=== PATIENT | male | born 1985 | race African-American/Black ===

== ENCOUNTER 2016-12-02 11:46 | Emergency (ER) | payer SELFPAY ==
[2016-12-02 13:00] VITALS: BP 127/65
--- NOTE | 2016-12-02 13:00 | ER Document Report ---
HPI - HPI Patient complains to provider of: Dysuria and penile discharge Onset: Other - 3 days Onset/Duration: Gradual Pain Level: 3 Context: 31-year-old male had unprotected intercourse with a female last Friday. By Friday he was having dysuria and now has a yellow penile discharge. No penile scrotal testicular swelling. No rash. Associated Symptoms: None Exacerbated by: Denies Relieved by: Denies - ROS ROS below otherwise negative: Yes Systems Reviewed and Negative: Yes All other systems reviewed and negative - REPRODUCTIVE Reproductive: DENIES: : - DERM Skin Color: Normal Past Medical History - General Information source: Patient - Social History Smoking Status: Unknown if Ever Smoked Frequency of alcohol use: None Drug Abuse: None Lives with: Family Family History: Reviewed & Not Pertinent Patient has suicidal ideation: No Patient has homicidal ideation: No Renal/ Medical History: Denies: Hx Peritoneal Dialysis Musculoskeltal Medical History: Reports Hx Musculoskeletal Deformity - corrective surgery 10 years ago Past Surgical History: Reports: Hx Orthopedic Surgery - right ankle with hardware - Immunizations Hx Diphtheria, Pertussis, Tetanus Vaccination: No Vertical Provider Document - CONSTITUTIONAL Agree With Documented VS: Yes Exam Limitations: No Limitations General Appearance: No Apparent Distress - INFECTION CONTROL TRAVEL OUTSIDE OF THE [place] IN LAST 30 DAYS: No - HEENT HEENT: Normal ENT Exam - NECK Neck: Supple - GI/ABDOMEN Gastrointestinal: Abdomen Soft, Abdomen Non-Tender - REPRODUCTIVE Notes: Genitalia exam was not done per patient request. He denies any swelling lesions. We discussed STDs to watch for any development of blisters or ulcers that are nonpainful. He understands that if those develop he needs to be seen for follow-up immediately. - NEURO Level of Consciousness: Awake, Alert, Appropriate - DERM Integumentary: Warm, Dry, No Rash Discharge - Discharge Clinical Impression: Urethritis Condition: Good Disposition: HOME, SELF-CARE Instructions: Urethritis ([facility]), Rocephin ([facility]), Azithromycin ([facility]), Gonorrhea ( [facility]), Chlamydia ([facility]) Additional Instructions: Call me in 3 hours for the STD culture result so the female can be treated if it is positive, [phone] Department for HIV testing if you are concerned about it Use condoms Do not have sex with this female again until she has been treated if the cultures are positive Please complete the patient satisfaction survey if you get one, and return it.. If you do not receive a survey, then you can go to the [facility] website, [email or web address] and place your comments about your very good care. Thank you very much. It was a pleasure being your medical provider today. Forms: Return to Work
[2016-12-02] MEDS ORDERED: AZITHROMYCIN 250 MG TABLET PO ONE (13:01)
[2016-12-02] MEDS ORDERED: CEFTRIAXONE INJ 250 MG VIAL IM ONE (13:01)
[2016-12-02] MEDS ORDERED: LIDOCAINE 1% INJ-PF (10 MG/ML) 30 ML SDV INFIL ONE (13:01)
[2016-12-02 13:15] LABS: APPEARANCE,URINE CLEAR; BILIRUBIN,URINE NEGATIVE (NEGATIVE); GLUCOSE, URINE NEGATIVE (NEGATIVE); KETONES,URINE NEGATIVE (NEGATIVE); LEUKOCYTE ESTERASE,URINE NEGATIVE (NEGATIVE); NITRITE,URINE NEGATIVE (NEGATIVE); PROTEIN,URINE NEGATIVE (NEGATIVE); URINE SPECIFIC GRAVITY 1.014; UROBILINOGEN,URINE NEGATIVE mg/dL (<2.0)
[2016-12-02 14:41] LABS: CHLAM PCR NOT DETECTED (NOT DETECT)
== END 2016-12-02 14:01 | disposition home or self-care (01) ==
LOC: ER 11:46
DX: N34.2 Other urethritis (principal); R30.0 Dysuria
CPT/HCPCS: 99283; 96372; 81001; 87491; 87591; J3490; J0696

== ENCOUNTER 2016-12-30 10:35 | Emergency (ER) | payer SELFPAY ==
--- NOTE | 2016-12-30 10:55 | ER Document Report ---
ED General - General Chief Complaint: Shoulder Injury Stated Complaint: SHOULDER INJURY Time Seen by Provider: 12/30/16 10:53 Mode of Arrival: Wheelchair Information source: Patient Notes: Patient is a 31 year old male who presents with right shoulder pain that occurred around 2 AM this morning after he was wrestling with some friends. He states he heard a "pop" and thought he dislocated his shoulder. He believes he reduced it but has had continued pain and limited mobility sine then. He did take some ibuprofen around 3:30 AM which did not provide relief. Denies any numbness, tingling to extremity. TRAVEL OUTSIDE OF THE [place] IN LAST 30 DAYS: No - Related Data Allergies/Adverse Reactions: No Known Allergies Allergy (Verified 12/02/16 11:51) Past Medical History - General Information source: Patient - Social History Smoking Status: Current Every Day Smoker Family History: Reviewed & Not Pertinent Patient has suicidal ideation: No Patient has homicidal ideation: No Renal/ Medical History: Denies: Hx Peritoneal Dialysis Musculoskeltal Medical History: Reports Hx Musculoskeletal Deformity - corrective surgery 10 years ago Past Surgical History: Reports: Hx Orthopedic Surgery - right ankle with hardware - Immunizations Hx Diphtheria, Pertussis, Tetanus Vaccination: No Review of Systems - Review of Systems Constitutional: See HPI EENT: No symptoms reported Cardiovascular: No symptoms reported Respiratory: No symptoms reported Gastrointestinal: No symptoms reported Genitourinary: No symptoms reported Male Genitourinary: No symptoms reported Musculoskeletal: See HPI Skin: No symptoms reported Hematologic/Lymphatic: No symptoms reported Neurological/Psychological: See HPI Physical Exam - Vital signs Vitals: Temp Pulse Resp BP Pulse Ox 98.3 F 75 20 125/80 97 12/30/16 10:39 12/30/16 10:39 12/30/16 10:39 12/30/16 10:39 12/30/16 10:39 - Notes Notes: PHYSICAL EXAM: CONSTITUTIONAL: Alert and oriented, well-appearing and in no acute distress. HENT: Normocephalic, atraumatic. Trachea midline. Uvula midline. Moist mucous membranes. EYES: Pupils equal round and reactive to light, EOM intact. Sclera anicteric, conjunctiva are normal. No entrapment. NECK: supple without lymphadenopathy. No midline tenderness or paraspinous muscle spasms. No step-offs or deformities. ROM intact. HEART: Regular rate and rhythm without murmurs. LUNGS: CTAB and equal. No wheezes, rales or rhonchi. BACK: nontender, no paraspinous spasm, 5+/5 strengths, DTRs 2+, SLR -. EXTREMITIES: Right shoulder tender to palpation along AC joint and anterior aspect of deltoid without obvious deformity or edema. No clavicular tenderness or step-off. 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 ROM limited past 70 degrees of abduction of right shoulder in passive ROM secondary to pain. No pitting edema. No cyanosis. Cap Refill <3 seconds. Distal pulses intact. NEURO: Cranial nerves grossly intact. Normal sensory/motor exams. PSYCH: Normal mood, normal affect. SKIN: Warm and dry. Normal turgor. No rashes or lesions noted. Course - Re-evaluation Re-evalutation: 12/30/16 11:45 Patient seen and examined. No obvious deformity or edema to right shoulder and right clavicle. Distal pulses intact. Cap Refill <3 sec. Sensation to touch intact. Review of x-rays reveals no dislocation or fracture. Discussed results with patient. Given that the pain medication here. Will discharge home with same. Follow-up with orthopedics and physical therapy At this time, will discharge with return precautions and follow-up recommendations. Verbal discharge instructions given at the bedside and opportunity for questions given. Medication warnings reviewed. Patient is in agreement with this plan and has verbalized understanding of return precautions and the need for primary care follow-up in the next 24-72 hours. - Vital Signs Vital signs: Temp Pulse Resp BP Pulse Ox 98.3 F 75 20 125/80 97 12/30/16 10:39 12/30/16 10:39 12/30/16 10:39 12/30/16 10:39 12/30/16 10:39 Discharge - Discharge Clinical Impression: Right shoulder injury Qualifiers: Encounter type: initial encounter Qualified Code(s): S49.91XA - Unspecified injury of right shoulder and upper arm, initial encounter Right shoulder strain Qualifiers: Encounter type: initial encounter Qualified Code(s): S46.911A - Strain of unspecified muscle, fascia and tendon at shoulder and upper arm level, right arm , initial encounter Condition: Stable Disposition: HOME, SELF-CARE Additional Instructions: Muscle Strain You have strained a muscle -- torn the fibers within the muscle. This often occurs with strenuous exertion, or during an injury that suddenly stretches the muscle. The seriousness of a strain varies. Some strains heal within days, others cause problems for months. X-rays cannot show a muscle strain. X-rays are taken only if symptoms suggest that a fracture could be present. The usual treatment of a muscle strain is rest and ice packs. Sometimes, a sling, splint, or crutches may be necessary to rest the muscle. The muscle can be used again once pain subsides. Severe strains require a special exercise and stretching program to prevent permanent stiffness and disability. Your doctor will advise you if this will be necessary. Call the doctor immediately if pain or swelling becomes severe, or if numbness or discoloration develop. Myalagia (Muscle Pain) Myalgia is pain in the muscles. We use the word myalgia to describe muscle pain where there's no history of injury, no known muscle disease, and the muscles are normal to examination. Myalgias can be a symptom of an acute illness , such as influenza, hepatitis, or any viral illness, especially with fever. Sometimes the muscle pain comes before any other symptoms. Myalgia can also be an early symptom of inflammatory muscle disease, such as lupus. If myalgia is accompanied by an acute illness that explains the muscle pain , then no further testing needs to be done. When there's no clear reason for the pain, tests may be done to see if there's an inflammatory or other disease of the muscles. The usual treatment for myalgias is anti-inflammatory medication, such as ibuprofen. Muscle aches may be soothed with a heating pad or hot compress. If muscles remain painful for more than a few days, you'll need testing and followup. Return if a muscle becomes swollen, red, or severely painful. Temporary Sling You should use a sling. This is a temporary measure to allow the healing to begin. Once the area can be moved painfree, you can stop use of the sling. As you begin to use the injured part, be careful not to put so much stress on it that it hurts. The rule is "if it hurts, DON'T do it." You should only use the arm if it's comfortable. If you can't use the part without pain after several days' rest, or if the arm is not completely painfree within a week or two, please return for re- examination. Anti-Inflammatory Medication You have received a prescription for an antiinflammatory agent. This is an excellent, safe drug for pain control. In addition, it has potent antiinflammatory effects which are beneficial, especially in the treatment of injuries, arthritis, or tendonitis. It's best to take this medicine with food. Persons with ulcer disease or allergy to aspirin should notify their physician of this before taking this drug. Take the medication exactly as prescribed. Don't take additional doses unless instructed to do so by your doctor. If you develop wheezing, shortness of breath, hives, faintness, stomach pain, vomiting, or dark black stools, return for re-evaluation at once. FOLLOW-UP CARE: If you have been referred to a physician for follow-up care, call the physician s office for an appointment as you were instructed or within the next two days. If you experience worsening or a significant change in your symptoms, notify the physician immediately or return to the Emergency Department at any time for re-evaluation. Prescriptions: Ketorolac Tromethamine [Toradol 10 mg Tablet] 10 mg PO Q6HP PRN #20 tablet PRN Reason: Tramadol HCl [Ultram] 50 mg PO Q8HP PRN #10 tablet PRN Reason: Methocarbamol [Robaxin 500 mg Tablet] 500 mg PO TID #20 tablet Forms: Return to Work
[2016-12-30] MEDS ORDERED: HYDROCODONE/ACETAMINOPHEN 5-325 MG TABLET PO ONE (11:32)
--- NOTE | 2016-12-30 11:53 | RADIOLOGY REPORT (SQ) ---
EXAM DESCRIPTION: SHOULDER RIGHT 2 OR MORE VIEWS COMPLETED DATE/TIME: 12/30/2016 11:31 am REASON FOR STUDY: shoulder pain COMPARISON: None. NUMBER OF VIEWS: Three views. TECHNIQUE: Internal rotation, external rotation, and Y view images acquired of the right shoulder. LIMITATIONS: None. FINDINGS: MINERALIZATION: Normal. BONES: No acute fracture or dislocation. No worrisome bone lesions. No significant osteophytes. GLENOHUMERAL JOINT: No significant findings. ACROMIOCLAVICULAR JOINT: No large osteophytes. SOFT TISSUES: No calcifications. VISUALIZED RIBS, SPINE, AND LUNG: No other significant finding. OTHER: No other significant finding. IMPRESSION: NEGATIVE STUDY OF THE RIGHT SHOULDER. NO EXPLANATION FOR PAIN. TECHNICAL DOCUMENTATION: JOB ID: [id number] [email or web address]- All Rights Reserved
[2016-12-30 12:39] VITALS: BP 135/79
== END 2016-12-30 12:39 | disposition home or self-care (01) ==
LOC: ER 10:35
DX: S46.911A Strain of unspecified muscle, fascia and tendon at shoulder and upper arm level, right arm, initial encounter (principal); S49.91XA Unspecified injury of right shoulder and upper arm, initial encounter; F17.200 Nicotine dependence, unspecified, uncomplicated; X58.XXXA Exposure to other specified factors, initial encounter
CPT/HCPCS: 99283

== ENCOUNTER 2017-03-31 09:15 | Emergency (ER) | payer SELFPAY ==
--- NOTE | 2017-03-31 09:48 | ER Document Report ---
ED General - General Chief Complaint: Abscess Stated Complaint: right groin swelling Time Seen by Provider: 03/31/17 09:37 Notes: Patient is a 31 year old female who presents ot the ED complaining of right groin swelling that has been gradual onset for about one week. constatn ache and pressure in his right groin/upper medial thigh without redness, superficial tenderness or drainage. Never had symptos like this before. Denies h/o MRSA, abscess. States he is sexually active with his only, denies STD history. Otherwise feels well. Current smoker < 5 years, not even half a pack a day, rare etoh use, denies drug use TRAVEL OUTSIDE OF THE [place] IN LAST 30 DAYS: No - Related Data Allergies/Adverse Reactions: No Known Allergies Allergy (Verified 12/02/16 11:51) Past Medical History - Social History Smoking Status: Current Every Day Smoker Family History: Reviewed & Not Pertinent Patient has suicidal ideation: No Patient has homicidal ideation: No Renal/ Medical History: Denies: Hx Peritoneal Dialysis Musculoskeltal Medical History: Reports Hx Musculoskeletal Deformity - corrective surgery 10 years ago Past Surgical History: Reports: Hx Orthopedic Surgery - right ankle with hardware - Immunizations Hx Diphtheria, Pertussis, Tetanus Vaccination: No Review of Systems - Review of Systems Constitutional: No symptoms reported Genitourinary: See HPI Male Genitourinary: See HPI -: Yes All other systems reviewed and negative Physical Exam - Vital signs Vitals: Temp Pulse Resp BP Pulse Ox 97.8 F 61 18 121/69 99 03/31/17 09:16 03/31/17 09:16 03/31/17 09:16 03/31/17 09:16 03/31/17 09:16 - General General appearance: Appears well, Alert In distress: None - Cardiovascular Pulses: Normal: Femoral, Dorsalis pedis Normal capillary refill: Yes - Genitourinary Inspection: Other - superficial subacute abraision on the shaft of his penis, nontender. No: Blood at meatus, Penile discharge Tenderness: Nontender Cremasteric reflex: Normal Scrotum: No: Swelling, Redness, Hot to touch Notes: moderate right inguinal lymphadenopathy with site on upper thigh that is firm nonmobile and mildly tendnerss wihtout overlying erythema, induration, fluctuance - Extremities General lower extremity: Nontender, Normal color, Normal ROM, Normal strength, Normal temperature, Normal weight bearing - Neurological Motor strength normal: LLE, RLE Additional motor exam normals: No: Weakness Sensory: Normal - Skin Skin Temperature: Warm Skin Moisture: Dry Skin Color: Normal Skin Turgor: Elastic Course - Re-evaluation Re-evalutation: 03/31/17 10:30 Patient is a 31-year-old male who is hemodynamically stable, no acute distress and afebrile. Presentation is concerning for sexually transmitted disease versus soft tissue mass versus lymphadenopathy versus hematoma versus abscess. Patient states that he is sexually active only with his girlfriend and denies any other partners, symptoms. Site is warm to touch without any evidence of fluctuance overlying erythema or induration. Patient without any recent trauma. 03/31/17 12:31 CBC without any evidence of leukocytosis or anemia. CMP normal without any abnormalities in electrolytes. Urine without any evidence of UTI or bacteria. Ultrasound shows evidence of a complex area measuring 5 cm x 2 cm x 2 7 mm with an associated lymph node superior to that site. No area visible for possible aspiration to evaluate for possible hematoma given no hypoechoic area. Discussion with Dr. Caraballo with radiology recommends CT plevis with contrast. 03/31/17 14:[address] Johnson who states that CT is not adequate to assess for hematoma versus soft tissue mass. She is requesting addition of a sed rate and patient to be sent for right lower extremity MRI without contrast. States this is necessary to truly evaluate for any soft tissue mass. 03/31/17 17:47 Discussion with reading radiologist Dr. Felix states concern for soft tissue sarcoma on MRI. Patient continues to deny any recent trauma or pulled muscle at the site. Discussion with surgical list electrical and instrumentation manager Dr. Crump who will come and evaluate the patient in the ED. Last PO intake was approximately 17:30 03/31/17 18:36 Dr. Crump at the bedside for consult. Eval images with Dr. Johnson. Concern for liposarcoma. Will refer to westley De Paz for tissue biopsy this week. Discussed with patient at the bedside who agrees with plan. - Vital Signs Vital signs: Temp Pulse Resp BP Pulse Ox 97.8 F 61 18 121/69 99 03/31/17 09:16 03/31/17 09:16 03/31/17 09:16 03/31/17 09:16 03/31/17 09:16 - Laboratory Result Diagrams: 03/31/17 10:18 03/31/17 10:18 Laboratory results interpreted by me: 03/31/17 03/31/17 10:18 10:18 Hgb 13.4 L ESR 21 H Discharge - Discharge Clinical Impression: Leg mass Qualifiers: Laterality: right Qualified Code(s): R22.41 - Localized swelling, mass and lump , right lower limb Condition: Good Disposition: HOME, SELF-CARE Instructions: Oral Narcotic Medication ([facility]) Additional Instructions: Your evaluation today is concerning for possible liposarcoma of the right thigh. You will need to follow-up with Dr. De Paz this week for evaluation and biopsy of this area. Please take your medications as prescribed. Dr. Fabio De Paz MD Division of Surgical Oncology [address] [place] [id number] Prescriptions: Ibuprofen [Motrin 800 mg Tablet] 800 mg PO Q8H PRN #30 tab PRN Reason: Oxycodone HCl/Acetaminophen [Percocet 5-325 mg Tablet] 1 - 2 tab PO Q4H PRN #25 tablet PRN Reason: Forms: Return to Work Referrals: FABIO DE PAZ MD [NO LOCAL MD] - Follow up in 3-5 days
[2017-03-31 10:25] LABS: ABSOLUTE BASOPHILS # (AUTO) 0.1 10^3/uL (0.0-0.2); ABSOLUTE EOSINOPHILS # (AUTO) 0.1 10^3/uL (0.0-0.6); ABSOLUTE LYMPHOCYTES (AUTO) 1.7 10^3/uL (0.5-4.7); ABSOLUTE MONOCYTES (AUTO) 0.9 10^3/uL (0.1-1.4); ABSOLUTE NEUT (AUTO) 5.9 10^3/uL (1.7-8.2); BASOPHILS % (AUTO) 0.8 % (0-2); EOSINOPHILS % (AUTO) 1.1 % (0-6); HEMATOCRIT 40.5 % (37.9-51.0); HEMOGLOBIN 13.4 g/dL (13.5-17.0); HGB HCT DIFFERENCE -0.3; LYMPHOCYTES % (AUTO) 19.4 % (13-45); MEAN CORPUSCULAR HEMOGLOBIN 29.9 pg (27.0-33.4); MEAN CORPUSCULAR HGB CONC 33.2 g/dL (32.0-36.0); MEAN CORPUSCULAR VOLUME 90 fl (80-97); RED BLOOD COUNT 4.49 10^6/uL (4.35-5.55); RED CELL DISTRIBUTION WIDTH 13.1 % (11.5-14.0); SEGMENTED NEUTROPHILS % (AUTO) 68.7 % (42-78); WHITE BLOOD COUNT 8.6 10^3/uL (4.0-10.5)
[2017-03-31 10:50] LABS: ALANINE AMINOTRANSFERASE 43 U/L (21-72); ALBUMIN 4.1 g/dL (3.5-5.0); ALKALINE PHOSPHATASE 87 U/L (38-126); ANION GAP 10 (5-19); ASPARTATE AMINO TRANSFERASE 37 U/L (17-59); BILIRUBIN,DIRECT 0.4 mg/dL (0.0-0.4); BILIRUBIN,TOTAL 0.8 mg/dL (0.2-1.3); BLOOD UREA NITROGEN 13 mg/dL (7-20); CALCIUM 9.5 mg/dL (8.4-10.2); CARBON DIOXIDE 28 mmol/L (22-30); CHLORIDE 101 mmol/L (98-107); CREATININE RESULT 0.98 mg/dL (0.52-1.25); GLUCOSE 90 mg/dL (75-110); POTASSIUM 4.6 mmol/L (3.6-5.0); SODIUM 138.6 mmol/L (137-145); TOTAL PROTEIN 7.5 g/dL (6.3-8.2)
[2017-03-31 12:06] LABS: APPEARANCE,URINE CLEAR; BILIRUBIN,URINE NEGATIVE (NEGATIVE); GLUCOSE, URINE NEGATIVE (NEGATIVE); KETONES,URINE NEGATIVE (NEGATIVE); LEUKOCYTE ESTERASE,URINE NEGATIVE (NEGATIVE); NITRITE,URINE NEGATIVE (NEGATIVE); PROTEIN,URINE NEGATIVE (NEGATIVE); URINE SPECIFIC GRAVITY 1.009; UROBILINOGEN,URINE NEGATIVE mg/dL (<2.0)
[2017-03-31] MEDS ORDERED: ACETAMINOPHEN WITH CODEINE #3 TABLET PO ONE (12:09)
--- NOTE | 2017-03-31 12:18 | RADIOLOGY REPORT (SQ) ---
EXAM DESCRIPTION: U/S NON-OB PELVIS LTD W/O DOP COMPLETED DATE/TIME: 03/31/2017 11:30 am REASON FOR STUDY: right inguinal lymphadenopathy COMPARISON: None. TECHNIQUE: Dynamic and static grayscale images acquired of the pelvis via transabdominal approach an d recorded on PACS. Additional selected color Doppler and spectral images recorded. LIMITATIONS: None. FINDINGS: Imaging was performed in the upper thigh. In the area of concern there is a complex area measuring 5.2 x 2.8 x 2.4 cm. Just superior to this is a 2.8 x 1.5 x 0.9 cm lymph node. IMPRESSION: There is a complex area in the upper thigh as described. This could represent hematoma. This could represent soft tissue mass. This nearby lymph node as described. TECHNICAL DOCUMENTATION: JOB ID: [id number] [email or web address]- All Rights Reserved
[2017-03-31 13:33] LABS: CHLAM PCR NOT DETECTED (NOT DETECT)
--- NOTE | 2017-03-31 14:06 | RADIOLOGY REPORT (SQ) ---
EXAM DESCRIPTION: CT PELVIS WITH COMPLETED DATE/TIME: 03/31/2017 1:25 pm REASON FOR STUDY: right inguinal swelling, ?abscess ?mass COMPARISON: Right groin ultrasound 03/31/2017 TECHNIQUE: CT scan of the pelvis performed without intravenous or oral contrast. Images reviewed wi th soft tissue and bone windows. Reconstructed coronal and sagittal MPR images reviewed. All images stored on PACS. All CT scanners at this facility use dose modulation, iterative reconstruction, and/or weight based d osing when appropriate to reduce radiation dose to as low as reasonably achievable (ALARA). [facility]: Dose Right [facility]: CareDose [facility]: Dose Right [facility]: Teradose 4D [facility]: [employer] RADIATION DOSE: Up-to-date CT equipment and radiation dose reduction techniques were employed. CTDIv ol: 5.0 - 6.6 mGy. DLP: 400 mGy-cm. mGy. LIMITATIONS: None. FINDINGS: PELVIC BONES: No acute fracture. No worrisome bone lesions. VISUALIZED SPINE: No acute findings. HIPS: No acute fracture or dislocation. No worrisome bone lesions. No joint effusion PELVIC SOFT TISSUES: No significant findings. EXTRAPELVIC SOFT TISSUES: In the medial right upper thigh, at the very bottom edge of the field of vi ew, a intermediate density nodule is present along the uppermost aspect of the gracilis muscle or vas tus medialis muscle, measuring about 57 Hounsfield units. This measures about 4 cm AP x 3 cm transve rse, and correlates with the findings seen on ultrasound. The inferior extent of this is not include d in the field of view. However, ultrasound appearance and soft tissue density suggesting hematoma OTHER: These imaging findings were discussed with Mary Lew. IMPRESSION: Incomplete imaging of the probable right upper thigh hematoma. Mass could not entirely be excluded. MRI recommended TECHNICAL DOCUMENTATION: JOB ID: [id number] Quality ID # [id number]: Final reports with documentation of one or more dose reduction techniques (e.g., Au tomated exposure control, adjustment of the mA and/or kV according to patient size, use of iterative reconstruction technique) 2010 [employer]- All Rights Reserved
[2017-03-31] MEDS ORDERED: MORPHINE SULFATE 10 MG/ML INJ IV ONE ×3 (14:35→19:04)
--- NOTE | 2017-03-31 17:21 | RADIOLOGY REPORT (SQ) ---
EXAM DESCRIPTION: MRI RT LOWER EXTREMITY WITHOUT COMPLETED DATE/TIME: 03/31/2017 4:54 pm REASON FOR STUDY: right inguinal swelling ?abscess ?hematoma ?mass COMPARISON: CORRELATION MADE TO CT FROM 03/31/2017 AND ULTRASOUND FROM 03/31/2017 TECHNIQUE: Multiplanar imaging to include fat and fluid sensitive sequences. RENAL FUNCTION: None required. The patient is less than 50 years old. LIMITATIONS: None. FINDINGS: MASS SIGNAL CHARACTERISTICS: LOCATION: Subcutaneous tissues within the anteromedial upper right thigh which displaces but does not appear to invade the deeper fascia planes/musculature per SIGNAL CHARACTERISTICS AND ENHANCEMENT PATTERN: Ovoid and fairly when circumscribed with areas of bot h T2 and T1 hyperintense and hypointense signal with surrounding edema. MEASUREMENTS: 4.6 x 2.7 x 7.2 cm. MARROW SIGNAL IN ADJACENT BONES: Normal. OTHER SIGNIFICANT BONE, JOINT OR SOFT TISSUE FINDINGS: Mildly prominent lymph nodes within the right inguinal canal also demonstrating abnormal signal characteristics. IMPRESSION: 7.2 CM MASS ISOLATED TO THE SUBCUTANEOUS TISSUES THE OF THE UPPER MEDIAL RIGHT THIGH WIT H ADDITIONAL ABNORMAL APPEARING LYMPH NODES IN THE RIGHT GROIN. IMAGING CHARACTERISTICS ARE CONCERNI NG FOR SOFT TISSUE SARCOMA. ABSENCE OF TRAUMA OR ANY SPORTS RELATED INJURY MAKES HEMATOMA UNLIKELY. DIFFERENTIAL INCLUDES MARKEDLY ABNORMAL LYMPH NODE IN THE SETTING OF ATYPICAL INFECTIOUS/INFLAMMATOR Y PROCESS HOWEVER THIS IS FELT LESS LIKELY. CONTRAST-ENHANCED IMAGING MAY BE USEFUL FOR FURTHER EVAL UATION. RECOMMEND SURGICAL CONSULTATION. TECHNICAL DOCUMENTATION: JOB ID: [id number] [employer]- All Rights Reserved
--- NOTE | 2017-03-31 19:19 | PDOC CONSULTATION ---
Consultation Consult Date: 03/31/17 Consult reason:: Soft tissue mass right thigh History of Present Illness History of Present Illness: DAVID SÁNCHEZ is a 31 year old male department complaining we can have history of swelling right groin. He denies history of trauma, injury to his right leg, or constitutional symptoms. Patient seen in the emergency department early this morning and had multiple imaging studies including ultrasonography, CT scan and MRI. Concern raised about possible liposarcoma. Surgery was consulted. Patient denies family history of sarcoma. Past Surgical History Past Surgical History: Reports: Orthopedic Surgery - right ankle with hardware Social History Smoking Status: Current Every Day Smoker Family History Family History: Reviewed & Not Pertinent Parental Family History Reviewed: Yes Children Family History Reviewed: Yes Sibling(s) Family History Reviewed.: Yes Medication/Allergy Home Medications: Ibuprofen [Motrin 800 Mg Tablet] 800 mg PO TID PRN #30 tablet 06/26/15 Penicillin V Potassium [Penicillin Vk 500 mg Tablet] 500 mg PO QID #40 tablet Tramadol HCl [Ultram] 50 mg PO Q4HP PRN #20 tablet 03/18/16 Ketorolac Tromethamine [Toradol 10 mg Tablet] 10 mg PO Q6HP PRN #20 tablet 12/30 Methocarbamol [Robaxin 500 mg Tablet] 500 mg PO TID #20 tablet 12/30/16 Tramadol HCl [Ultram] 50 mg PO Q8HP PRN #10 tablet 12/30/16 Ibuprofen [Motrin 800 mg Tablet] 800 mg PO Q8H PRN #30 tab 03/31/17 Oxycodone HCl/Acetaminophen [Percocet 5-325 mg Tablet] 1 - 2 tab PO Q4H PRN #25 tablet 03/31/17 Allergies/Adverse Reactions: No Known Allergies Allergy (Verified 12/02/16 11:51) Review of Systems Constitutional: ABSENT: chills, fever(s), headache(s), weight gain, weight loss Eyes: ABSENT: visual disturbances Ears: ABSENT: hearing changes Cardiovascular: ABSENT: chest pain, dyspnea on exertion, edema, orthropnea, palpitations Genitourinary: ABSENT: dysuria, hematuria Musculoskeletal: ABSENT: joint swelling Neurological: ABSENT: abnormal gait, abnormal speech, confusion, dizziness, focal weakness, syncope Physical Exam Vital Signs: Temp Pulse Resp BP Pulse Ox 97.8 F 61 18 121/69 99 03/31/17 09:16 03/31/17 09:16 03/31/17 09:16 03/31/17 09:16 03/31/17 09:16 Intake & Output 03/30/17 03/31/17 04/01/17 06:59 06:59 06:59 Weight 75.9 kg General appearance: PRESENT: no acute distress Head exam: PRESENT: normocephalic Eye exam: PRESENT: EOMI Mouth exam: PRESENT: moist Neck exam: PRESENT: full ROM Respiratory exam: PRESENT: crackles Cardiovascular exam: PRESENT: RRR GI/Abdominal exam: PRESENT: diminished bowel sounds, hypoactive bowel sounds Rectal exam: PRESENT: deferred Musculoskeletal exam: PRESENT: full ROM, other - Mass right inner thigh approximately 7 x 4 x 4 cm, below the inguinal ligament but not contiguous, spongy, semi-firm. No overlying skin changes. There is scattered adenopathy in the right groin. Neurological exam: PRESENT: alert, awake, oriented to person, oriented to place Psychiatric exam: PRESENT: appropriate affect Results Laboratory Results: 03/31/17 10:18 03/31/17 10:18 03/31/17 03/31/17 03/31/17 10:18 10:18 11:45 WBC 8.6 RBC 4.49 Hgb 13.4 L Hct 40.5 MCV 90 MCH 29.9 MCHC 33.2 RDW 13.1 Plt Count 279 Seg Neutrophils % 68.7 Lymphocytes % 19.4 Monocytes % 10.0 Eosinophils % 1.1 Basophils % 0.8 Absolute Neutrophils 5.9 Absolute Lymphocytes 1.7 Absolute Monocytes 0.9 Absolute Eosinophils 0.1 Absolute Basophils 0.1 Sodium 138.6 Potassium 4.6 Chloride 101 Carbon Dioxide 28 Anion Gap 10 BUN 13 Creatinine 0.98 Est GFR ( Amer) > 60 Est GFR (Non-Af Amer) > 60 Glucose 90 Calcium 9.5 Total Bilirubin 0.8 AST 37 ALT 43 Alkaline Phosphatase 87 Total Protein 7.5 Albumin 4.1 Urine Color STRAW Urine Appearance CLEAR Urine pH 6.0 Ur Specific [place] 1.009 Urine Protein NEGATIVE Urine Glucose (UA) NEGATIVE Urine Ketones NEGATIVE Urine Blood NEGATIVE Urine Nitrite NEGATIVE Ur Leukocyte Esterase NEGATIVE Impressions: Pelvis Ultrasound 03/31/17 09:49 IMPRESSION: There is a complex area in the upper thigh as described. This could represent hematoma. This could represent soft tissue mass. This nearby lymph node as described. Pelvis CT 03/31/17 12:31 IMPRESSION: Incomplete imaging of the probable right upper thigh hematoma. Mass could not entirely be excluded. MRI recommended Lower Extremity MRI 03/31/17 13:58 IMPRESSION: 7.2 CM MASS ISOLATED TO THE SUBCUTANEOUS TISSUES THE OF THE UPPER MEDIAL RIGHT THIGH WITH ADDITIONAL ABNORMAL APPEARING LYMPH NODES IN THE RIGHT GROIN. IMAGING CHARACTERISTICS ARE CONCERNING FOR SOFT TISSUE SARCOMA. ABSENCE OF TRAUMA OR ANY SPORTS RELATED INJURY MAKES HEMATOMA UNLIKELY. DIFFERENTIAL INCLUDES MARKEDLY ABNORMAL LYMPH NODE IN THE SETTING OF ATYPICAL INFECTIOUS/INFLAMMATORY PROCESS HOWEVER THIS IS FELT LESS LIKELY. CONTRAST- ENHANCED IMAGING MAY BE USEFUL FOR FURTHER EVALUATION. RECOMMEND SURGICAL CONSULTATION. Assessment & Plan - Diagnosis (1) Leg mass Qualifiers: Laterality: right Qualified Code(s): R22.41 - Localized swelling, mass and lump, right lower limb Plan: Suspicious for soft tissue sarcoma, possible liposarcoma; Caution: 1. I reviewed the patient's medical record, diagnostic imaging, discuss imaging with Dr. Johnson, radiologist. Given the mass location, texture, and imaging profile, concern for soft tissue malignancy is moderate to high. 2. I spoke with Dr. Villa, director of surgical oncology at [facility] is agreed to see the patient in consultation. Appropriate information will be provided in contact and follow-up arrangements made. - Time Time Spent: 30 to 50 Minutes Critical Time spent with patient: Less than 15 minutes
[2017-03-31 20:14] VITALS: BP 122/88
== END 2017-03-31 20:02 | disposition home or self-care (01) ==
LOC: ER 09:15
DX: R22.41 Localized swelling, mass and lump, right lower limb (principal); S30.812A Abrasion of penis, initial encounter; X58.XXXA Exposure to other specified factors, initial encounter; F17.200 Nicotine dependence, unspecified, uncomplicated
CPT/HCPCS: 96376; 99284; 96374; 36415; 85025; 85652; 86592; 80053; 81001; 87491; 87591; 73718; 76857; J2270; 72193

== ENCOUNTER 2017-05-04 02:16 | Emergency (ER) | payer OTHER ==
[2017-05-04 02:23] VITALS: BP 128/67
[2017-05-04] MEDS ORDERED: ACETAMINOPHEN 325 MG TABLET PO ONE (02:30)
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
== END 2017-05-04 03:16 | disposition left against medical advice (07) ==
LOC: ER 02:16
DX: M54.2 Cervicalgia (principal); M25.561 Pain in right knee; M54.89 Other dorsalgia; V48.5XXA Car driver injured in noncollision transport accident in traffic accident, initial encounter; Y92.411 Interstate highway as the place of occurrence of the external cause
CPT/HCPCS: 72070; 72125; 99281

== ENCOUNTER 2018-02-15 07:27 | Emergency (ER) | payer SELFPAY ==
[2018-02-15 07:39] VITALS: BP 134/72
[2018-02-15 08:36] LABS: APPEARANCE,URINE CLEAR; BILIRUBIN,URINE NEGATIVE (NEGATIVE); COLOR,URINE YELLOW; GLUCOSE, URINE NEGATIVE (NEGATIVE); KETONES,URINE NEGATIVE (NEGATIVE); LEUKOCYTE ESTERASE,URINE NEGATIVE (NEGATIVE); NITRITE,URINE NEGATIVE (NEGATIVE); PROTEIN,URINE NEGATIVE (NEGATIVE); URINE SPECIFIC GRAVITY 1.021; UROBILINOGEN,URINE NEGATIVE mg/dL (<2.0)
[2018-02-15] MEDS ORDERED: AZITHROMYCIN 1 GM SUSP PACKET PO ONE (10:14)
[2018-02-15] MEDS ORDERED: CEFTRIAXONE INJ 250 MG VIAL IM ONE (10:14)
[2018-02-15] MEDS ORDERED: METRONIDAZOLE 500 MG TABLET PO ONE (10:14)
[2018-02-15] MEDS ORDERED: LIDOCAINE 1% INJ-PF (10 MG/ML) 30 ML SDV INFIL ONE (10:14)
[2018-02-15] MEDS ORDERED: ONDANSETRON 4 MG TAB.RAPDIS PO ONE (10:16)
[2018-02-15] MEDS ORDERED: AZITHROMYCIN 250 MG TABLET PO ONE (10:21)
--- NOTE | 2018-02-15 10:28 | ER Document Report ---
ED General - General Chief Complaint: Urinary Problem Stated Complaint: URINARY ISSUE Time Seen by Provider: 02/15/18 07:59 TRAVEL OUTSIDE OF THE U.S. IN LAST 30 DAYS: No - Related Data Allergies/Adverse Reactions: No Known Allergies Allergy (Verified 05/04/17 02:30) Past Medical History - Social History Smoking Status: Never Smoker Family History: Reviewed & Not Pertinent Patient has suicidal ideation: No Patient has homicidal ideation: No Renal/ Medical History: Denies: Hx Peritoneal Dialysis Musculoskeletal Medical History: Reports Hx Musculoskeletal Deformity - corrective surgery 10 years ago Past Surgical History: Reports: Hx Orthopedic Surgery - R ankle with hardware - Immunizations Hx Diphtheria, Pertussis, Tetanus Vaccination: No Physical Exam - Vital signs Vitals: Temp Pulse Resp BP Pulse Ox 97.6 F 60 16 134/72 H 100 02/15/18 07:29 02/15/18 07:29 02/15/18 07:29 02/15/18 07:29 02/15/18 07:29 Course - Vital Signs Vital signs: Temp Pulse Resp BP Pulse Ox 97.6 F 60 16 134/72 H 100 02/15/18 07:29 02/15/18 07:29 02/15/18 07:29 02/15/18 07:29 02/15/18 07:29 Discharge - Discharge Clinical Impression: Dysuria Condition: Good Disposition: HOME, SELF-CARE Instructions: Chlamydia (OM), Gonorrhea (OM), Trichomonas Infection (OM) Additional Instructions: You are seen for dysuria today. Your urinalysis did not show any signs of a bladder infection however review of sexual actively deacon surrounds also essentially transmitted disease. Will treated you today for gonorrhea with a shot of Rocephin. We treated you today for chlamydia with azithromycin. We also treated for trichomonas infection with a dose of Flagyl. Please avoid any sexual contact for the next 2 weeks. You can call later for your results or call tomorrow between the hours of 8am and 5 PM for your results. Forms: Return to Work
[2018-02-15 10:54] LABS: CHLAM PCR NOT DETECTED (NOT DETECT); GON PCR NOT DETECTED (NOT DETECT)
--- NOTE | 2018-02-15 14:26 | ER Document Report ---
ED General - General Chief Complaint: Urinary Problem Stated Complaint: URINARY ISSUE Time Seen by Provider: 02/15/18 07:59 TRAVEL OUTSIDE OF THE U.[place]. IN LAST 30 DAYS: No - HPI Patient complains to provider of: Dysuria Notes: Patient coming in for evaluation of dysuria. Patient states no fevers no chills no nausea vomiting. Patient is currently sexually active. Patient does have a history of STDs in the past. Patient denies any penile discharge or lesions. Resting of the pulmonary evaluation. - Related Data Allergies/Adverse Reactions: No Known Allergies Allergy (Verified 05/04/17 02:30) Past Medical History - Social History Smoking Status: Never Smoker Family History: Reviewed & Not Pertinent Patient has suicidal ideation: No Patient has homicidal ideation: No Renal/ Medical History: Denies: Hx Peritoneal Dialysis Musculoskeletal Medical History: Reports Hx Musculoskeletal Deformity - corrective surgery 10 years ago Past Surgical History: Reports: Hx Orthopedic Surgery - R ankle with hardware - Immunizations Hx Diphtheria, Pertussis, Tetanus Vaccination: No Review of Systems - Review of Systems Constitutional: No symptoms reported EENT: No symptoms reported Cardiovascular: No symptoms reported Respiratory: No symptoms reported Gastrointestinal: No symptoms reported Genitourinary: Dysuria Male Genitourinary: No symptoms reported Musculoskeletal: No symptoms reported Skin: No symptoms reported Hematologic/Lymphatic: No symptoms reported Neurological/Psychological: No symptoms reported -: Yes All other systems reviewed and negative Physical Exam - Vital signs Vitals: Temp Pulse Resp BP Pulse Ox 97.6 F 60 16 134/72 H 100 02/15/18 07:29 02/15/18 07:29 02/15/18 07:29 02/15/18 07:29 02/15/18 07:29 Interpretation: Normal - General General appearance: Appears well, Alert - HEENT Head: Normocephalic, Atraumatic Eyes: Normal Pupils: PERRL - Respiratory Respiratory status: No respiratory distress Chest status: Nontender Breath sounds: Normal Chest palpation: Normal - Cardiovascular Rhythm: Regular Heart sounds: Normal auscultation Murmur: No - Abdominal Inspection: Normal Distension: No distension Bowel sounds: Normal Tenderness: Nontender Organomegaly: No organomegaly - Genitourinary Inspection: Normal Tenderness: Nontender Cremasteric reflex: Normal Scrotum: Normal - Back Back: Normal, Nontender - Extremities General upper extremity: Normal inspection, Nontender, Normal color, Normal ROM , Normal temperature General lower extremity: Normal inspection, Nontender, Normal color, Normal ROM , Normal temperature, Normal weight bearing. No: Tucker's sign - Neurological Neuro grossly intact: Yes Cognition: Normal Orientation: AAOx4 Evan Coma Scale Eye Opening: Spontaneous Evan Coma Scale Verbal: Oriented [place] Coma Scale Motor: Obeys Commands [place] Coma Scale Total: 15 Speech: Normal Motor strength normal: LUE, RUE, LLE, RLE Sensory: Normal - Psychological Associated symptoms: Normal affect, Normal mood - Skin Skin Temperature: Warm Skin Moisture: Dry Skin Color: Normal Course - Re-evaluation Re-evalutation: 02/15/18 14:26 Patient coming in for dysuria sexually active at this time. No signs of lesions or vesicles or any other concerning pathology. We will go ahead and treat patient prophylactically for sexually transmitted disease gonorrhea chlamydia and trichomonas. Patient is to call for his specific STD urine testing. Patient is to avoid excessive contact for the next 2 weeks. Patient is understanding will be discharged home. - Vital Signs Vital signs: Temp Pulse Resp BP Pulse Ox 98.8 F 60 16 134/72 H 100 02/15/18 10:42 02/15/18 07:29 02/15/18 07:29 02/15/18 07:29 02/15/18 07:29 Discharge - Discharge Clinical Impression: Dysuria Condition: Good Disposition: HOME, SELF-CARE Instructions: Chlamydia (OM), Gonorrhea (OM), Trichomonas Infection (OM) Additional Instructions: You are seen for dysuria today. Your urinalysis did not show any signs of a bladder infection however review of sexual actively deacon surrounds also essentially transmitted disease. Will treated you today for gonorrhea with a shot of Rocephin. We treated you today for chlamydia with azithromycin. We also treated for trichomonas infection with a dose of Flagyl. Please avoid any sexual contact for the next 2 weeks. You can call later for your results or call tomorrow between the hours of 8am and 5 PM for your results. Forms: Return to Work
== END 2018-02-15 10:42 | disposition home or self-care (01) ==
LOC: ER 07:27
DX: R30.0 Dysuria (principal)
CPT/HCPCS: 99283; 96372; 87086; 81001; 87491; 87591; S0119; J3490; J0696

== ENCOUNTER 2018-02-17 07:43 | Emergency (ER) | payer SELFPAY ==
[2018-02-17 09:45] LABS: APPEARANCE,URINE SLIGHTLY-CLOUDY; BILIRUBIN,URINE NEGATIVE (NEGATIVE); CALCIUM OXALATE CRYSTALS,URINE MANY /HPF; COLOR,URINE YELLOW; GLUCOSE, URINE NEGATIVE (NEGATIVE); KETONES,URINE TRACE mg/dL (NEGATIVE); LEUKOCYTE ESTERASE,URINE TRACE (NEGATIVE); NITRITE,URINE NEGATIVE (NEGATIVE); PROTEIN,URINE NEGATIVE (NEGATIVE); URINE SPECIFIC GRAVITY 1.025; UROBILINOGEN,URINE NEGATIVE mg/dL (<2.0)
[2018-02-17] MEDS ORDERED: CEFTRIAXONE INJ 250 MG VIAL IM ONE (09:59)
--- NOTE | 2018-02-17 10:00 | ER Document Report ---
HPI - HPI Patient complains to provider of: Patient presents complaining of penile discharge Onset: This morning Onset/Duration: Gradual Quality of pain: Burning Pain Level: 2 Context: Patient presents complaining of penile discharge with burning with urination. Patient denies any fever urinary frequency nausea or vomiting. Patient states he was recently seen here for the same complaint. Patient denies being sexually active since being evaluated here recently. Associated Symptoms: Other - Penile discharge. denies: Fever, Nausea, Vomiting Exacerbated by: Denies Relieved by: Denies Similar symptoms previously: Yes Recently seen / treated by doctor: Yes - ROS ROS below otherwise negative: Yes Systems Reviewed and Negative: Yes All other systems reviewed and negative - CONSTITUTIONAL Constitutional: DENIES: Fever, Chills - EENT EENT: DENIES: Sore Throat - GASTROINTESTINAL Gastrointestinal: DENIES: Abdominal Pain, Patient vomiting - URINARY Urinary: REPORTS: Dysuria - Penile discharge - REPRODUCTIVE Reproductive: DENIES: : - MUSCULOSKELETAL Musculoskeletal: DENIES: Back Pain Past Medical History - General Information source: Patient - Social History Smoking Status: Never Smoker Chew tobacco use (# tins/day): No Frequency of alcohol use: None Drug Abuse: None Occupation: [employer] Family History: Reviewed & Not Pertinent Patient has suicidal ideation: No Patient has homicidal ideation: No - Medical History Medical History: Negative Renal/ Medical History: Denies: Hx Peritoneal Dialysis Musculoskeletal Medical History: Reports Hx Musculoskeletal Deformity - corrective surgery 10 years ago Past Surgical History: Reports: Hx Orthopedic Surgery - R ankle with hardware - Immunizations Hx Diphtheria, Pertussis, Tetanus Vaccination: No Vertical Provider Document - CONSTITUTIONAL Agree With Documented VS: Yes Exam Limitations: No Limitations General Appearance: WD/WN, No Apparent Distress - INFECTION CONTROL TRAVEL OUTSIDE OF THE [place] IN LAST 30 DAYS: No - HEENT HEENT: Atraumatic, Normocephalic - NECK Neck: Normal Inspection - RESPIRATORY Respiratory: Breath Sounds Normal, No Respiratory Distress - CARDIOVASCULAR Cardiovascular: Regular Rate, Regular Rhythm - GI/ABDOMEN Gastrointestinal: Abdomen Soft, Abdomen Non-Tender - REPRODUCTIVE Male Genitalia: Normal Inspection Notes: Normal cremasteric reflex, no drainage or discharge noted. No inguinal lymphadenopathy. No scrotal tenderness. RN as standby - BACK Back: Normal Inspection. negative: CVA Tenderness-Right, CVA Tenderness-Left - MUSCULOSKELETAL/EXTREMETIES Musculoskeletal/Extremeties: MAEW - NEURO Level of Consciousness: Awake, Alert, Appropriate Motor/Sensory: No Motor Deficit - DERM Integumentary: Warm, Dry Course - Laboratory Laboratory results interpreted by me: 02/17/18 09:15 Urine Ketones TRACE H Ur Leukocyte Esterase TRACE H 02/17/18 09:58 Labs- Entire Visit 02/17/18 02/17/18 09:15 09:15 Urine Color YELLOW Urine Appearance SLIGHTLY-CLOUDY Urine pH 5.0 Ur Specific [place] 1.025 Urine Protein NEGATIVE Urine Glucose (UA) NEGATIVE Urine Ketones TRACE H Urine Blood NEGATIVE Urine Nitrite NEGATIVE Urine Bilirubin NEGATIVE Urine Urobilinogen NEGATIVE Ur Leukocyte Esterase TRACE H Urine WBC (Auto) 1 Urine RBC (Auto) 2 Calcium Oxalate Cr Auto MANY Urine Mucus (Auto) OCC Urine Ascorbic Acid NEGATIVE Chlamydia DNA (PCR) Cancelled N.gonorrhoeae DNA (PCR) Cancelled Viewed labs from previous ER visit 02/17/18 19:29 Labs- Entire Visit 02/17/18 02/17/18 09:15 09:15 Urine Color YELLOW Urine Appearance SLIGHTLY-CLOUDY Urine pH 5.0 Ur Specific [place] 1.025 Urine Protein NEGATIVE Urine Glucose (UA) NEGATIVE Urine Ketones TRACE H Urine Blood NEGATIVE Urine Nitrite NEGATIVE Urine Bilirubin NEGATIVE Urine Urobilinogen NEGATIVE Ur Leukocyte Esterase TRACE H Urine WBC (Auto) 1 Urine RBC (Auto) 2 Calcium Oxalate Cr Auto MANY Urine Mucus (Auto) OCC Urine Ascorbic Acid NEGATIVE Chlamydia DNA (PCR) Cancelled N.gonorrhoeae DNA (PCR) Cancelled Discharge - Discharge Clinical Impression: Dysuria Condition: Stable Disposition: HOME, SELF-CARE Instructions: Urethritis ([facility]) Additional Instructions: Return immediately for any new or worsening symptoms Followup with your primary care provider, call tomorrow to make a followup appointment Cultures are pending, we will call if you need any different treatment Follow-up with urology for any concerning problems Prescriptions: Doxycycline Hyclate 100 mg PO BID #20 capsule Forms: Return to Work Referrals: HEALTH DEPT,[facility] [NO LOCAL MD] - Follow up as needed [facility] [Provider Group] - Follow up as needed
[2018-02-17] MEDS ORDERED: LIDOCAINE 1% INJ-PF (10 MG/ML) 30 ML SDV ONE (10:11)
[2018-02-17 10:18] VITALS: BP 122/69
== END 2018-02-17 10:25 | disposition home or self-care (01) ==
LOC: ER 07:43
DX: R30.0 Dysuria (principal); R36.9 Urethral discharge, unspecified
CPT/HCPCS: 99283; 96372; 87491; 87591; 87086; 81001; J3490; J0696

== ENCOUNTER 2018-10-02 14:50 | Inpatient (IN) | payer SELFPAY ==
[2018-10-02] MEDS ORDERED: ETOMIDATE INJ/PF 20 MG/10 ML SDV IV ONE ×2 (14:52→17:08)
[2018-10-02] MEDS ORDERED: PROPOFOL 1,000 MG/100 ML INFUS..BTL IV ONE (15:00)
[2018-10-02] MEDS ORDERED: NORMAL SALINE 1000 ML 1,000 ML IV ONE ×2 (15:05→16:39)
[2018-10-02] MEDS ORDERED: ONDANSETRON HCL INJ/PF 4 MG/2 ML SDV ONE (15:10)
[2018-10-02] MEDS ORDERED: ONDANSETRON HCL INJ/PF 4 MG/2 ML SDV IV ONE (15:10)
[2018-10-02] MEDS ORDERED: ROCURONIUM BROMIDE INJ 50 MG/5 ML VIAL IV ONE ×2 (15:17→19:42)
[2018-10-02] MEDS ORDERED: ACETAMINOPHEN 650 MG SUPP.RECT PR ONE (15:24)
[2018-10-02] MEDS ORDERED: ACETAMINOPHEN 325 MG SUPP.RECT PR ONE ×2 (15:24)
[2018-10-02 15:27] LABS: ABSOLUTE LYMPHOCYTES (AUTO) 1.3 10^3/uL (0.5-4.7); ABSOLUTE MONOCYTES (AUTO) 1.1 10^3/uL (0.1-1.4); ABSOLUTE NEUT (AUTO) 12.5 10^3/uL (1.7-8.2); BASOPHILS % (AUTO) 0.3 % (0-2); EOSINOPHILS % (AUTO) 0.1 % (0-6); HEMATOCRIT 44.3 % (37.9-51.0); HEMOGLOBIN 14.4 g/dL (13.5-17.0); LYMPHOCYTES % (AUTO) 8.6 % (13-45); MEAN CORPUSCULAR HEMOGLOBIN 29.3 pg (27.0-33.4); MEAN CORPUSCULAR HGB CONC 32.5 g/dL (32.0-36.0); MEAN CORPUSCULAR VOLUME 90 fl (80-97); MONOCYTES % (AUTO) 7.6 % (3-13); PLATELET COUNT 234 10^3/uL (150-450); RED BLOOD COUNT 4.91 10^6/uL (4.35-5.55); RED CELL DISTRIBUTION WIDTH 13.8 % (11.5-14.0); SEGMENTED NEUTROPHILS % (AUTO) 83.4 % (42-78); TOTAL CELLS COUNTED % (AUTO) 100 %
[2018-10-02 15:32] LABS: APPEARANCE,URINE CLEAR; BILIRUBIN,URINE NEGATIVE (NEGATIVE); COLOR,URINE YELLOW; GLUCOSE, URINE NEGATIVE (NEGATIVE); KETONES,URINE NEGATIVE (NEGATIVE); LEUKOCYTE ESTERASE,URINE NEGATIVE (NEGATIVE); NITRITE,URINE NEGATIVE (NEGATIVE); PROTEIN,URINE NEGATIVE (NEGATIVE); URINE SPECIFIC GRAVITY 1.019; UROBILINOGEN,URINE NEGATIVE mg/dL (<2.0)
[2018-10-02 15:35] LABS: ALANINE AMINOTRANSFERASE 71 U/L (21-72); ALBUMIN 5.2 g/dL (3.5-5.0); ALCOHOL 14 mg/dL (NONE DETECTED); ALKALINE PHOSPHATASE 79 U/L (38-126); ASPARTATE AMINO TRANSFERASE 98 U/L (17-59); BILIRUBIN,DIRECT 0.4 mg/dL (0.0-0.4); BILIRUBIN,TOTAL 0.6 mg/dL (0.2-1.3); BLOOD UREA NITROGEN 10 mg/dL (7-20); CALCIUM 10.4 mg/dL (8.4-10.2); GLUCOSE 144 mg/dL (75-110); POTASSIUM 4.2 mmol/L (3.6-5.0)
[2018-10-02 15:40] LABS: CARBON DIOXIDE 17 mmol/L (22-30); CHLORIDE 103 mmol/L (98-107)
[2018-10-02 15:41] LABS: ACETAMINOPHEN < 10 ug/mL (10-30); ANION GAP 23 (5-19); SALICYLATE < 1.0 mg/dL (2.0-20.0)
[2018-10-02 15:49] LABS: URINE AMPHETAMINES SCREEN NEGATIVE; URINE BARBITURATES SCREEN NEGATIVE; URINE BENZODIAZEPINES SCREEN NEGATIVE; URINE COCAINE SCREEN UNCONFIRMED POSITIVE; URINE MARIJUANA (THC) SCREEN UNCONFIRMED POSITIVE; URINE METHADONE SCREEN NEGATIVE; URINE PHENCYCLIDINE SCREEN NEGATIVE
--- NOTE | 2018-10-02 15:53 | RADIOLOGY REPORT (SQ) ---
EXAM DESCRIPTION: CHEST SINGLE VIEW COMPLETED DATE/TIME: 10/02/2018 3:36 pm REASON FOR STUDY: ams, intubated COMPARISON: 09/26/2008. EXAM PARAMETERS: NUMBER OF VIEWS: One view. TECHNIQUE: Single frontal radiographic view of the chest acquired. RADIATION DOSE: NA LIMITATIONS: None. FINDINGS: LUNGS AND PLEURA: No opacities, masses or pneumothorax. No pleural effusion. MEDIASTINUM AND HILAR STRUCTURES: No masses. Contour normal. HEART AND VASCULAR STRUCTURES: Heart normal in size. Normal vasculature. BONES: No acute findings. HARDWARE: Endotracheal tube with the tip located 2 cm proximal to the jennifer. Nasogastric tube with the tip in the stomach. OTHER: No other significant finding. IMPRESSION: NO ACUTE RADIOGRAPHIC FINDING IN THE CHEST. SATISFACTORY POSITION OF THE ENDOTRACHEAL T UBE AND NASOGASTRIC TUBE. TECHNICAL DOCUMENTATION: JOB ID: [id number] [employer]- All Rights Reserved Reading location - IP/workstation name: [email or web address]
--- NOTE | 2018-10-02 16:18 | RADIOLOGY REPORT (SQ) ---
EXAM DESCRIPTION: CT HEAD WITHOUT COMPLETED DATE/TIME: 10/02/2018 4:07 pm REASON FOR STUDY: ams, trauma COMPARISON: 05/04/2011. TECHNIQUE: Axial images acquired through the brain without intravenous contrast. Images reviewed wi th bone, brain and subdural windows. Additional sagittal and coronal reconstructions were generated. Images stored on PACS. All CT scanners at this facility use dose modulation, iterative reconstruction, and/or weight based d osing when appropriate to reduce radiation dose to as low as reasonably achievable (ALARA). [facility]: Dose Right [facility]: CareDose [facility]: Dose Right [facility]: Teradose 4D [facility]: [place] RADIATION DOSE: CT Rad equipment meets quality standard of care and radiation dose reduction techniq ues were employed. CTDIvol: 53.2 mGy. DLP: 991 mGy-cm. mGy. LIMITATIONS: None. FINDINGS: VENTRICLES: Normal size and contour. CEREBRUM: No masses. No hemorrhage. No midline shift. No evidence for acute infarction. Normal gra y/white matter differentiation. No areas of low density in the white matter. CEREBELLUM: No masses. No hemorrhage. No alteration of density. No evidence for acute infarction. EXTRAAXIAL SPACES: No fluid collections. No masses. ORBITS AND GLOBE: No intra- or extraconal masses. Normal contour of globe without masses. CALVARIUM: No fracture. PARANASAL SINUSES: No fluid or mucosal thickening. SOFT TISSUES: No mass or hematoma. OTHER: No other significant finding. IMPRESSION: NORMAL BRAIN CT WITHOUT CONTRAST. EVIDENCE OF ACUTE STROKE: NO. COMMENT: Quality ID # [id number]: Final reports with documentation of one or more dose reduction techniques (e.g., Automated exposure control, adjustment of the mA and/or kV according to patient size, use of iterative reconstruction technique) TECHNICAL DOCUMENTATION: JOB ID: [id number] [employer]- All Rights Reserved Reading location - IP/workstation name: [email or web address]
--- NOTE | 2018-10-02 16:21 | RADIOLOGY REPORT (SQ) ---
EXAM DESCRIPTION: CT FACIAL AREA WITHOUT COMPLETED DATE/TIME: 10/02/2018 4:07 pm REASON FOR STUDY: ams, trauma COMPARISON: 05/04/2011. TECHNIQUE: Noncontrasted images through the facial bones and orbits windowed for bone and soft tissu e. Additional coronal and sagittal reconstructed images reviewed. All images stored on PACS. All CT scanners at this facility use dose modulation, iterative reconstruction, and/or weight based d osing when appropriate to reduce radiation dose to as low as reasonably achievable (ALARA). [facility]: Dose Right [facility]: CareDose [facility]: Dose Right [facility]: Teradose 4D [facility]: [place] RADIATION DOSE: CT Rad equipment meets quality standard of care and radiation dose reduction techniq ues were employed. CTDIvol: 30.4 mGy. DLP: 612 mGy-cm. mGy. LIMITATIONS: None. FINDINGS: FACIAL BONES: Deformity of the nasal bone on the right side and of the anterior wall of th e right maxillary sinus secondary to old fractures. No acute fracture or bone lesion. ORBITS: Intact. No fracture. Symmetric intact globes and retroorbital soft tissues. PARANASAL SINUSES: Clear. No significant mucosal thickening, mass or fluid. No nasal polyps. Maxill marcus sinus outlets are patent. SOFT TISSUES: No mass or edema. INFERIOR BRAIN: Limited view. No acute findings. OTHER: No other significant finding. IMPRESSION: NO ACUTE FINDINGS. TECHNICAL DOCUMENTATION: JOB ID: [id number] Quality ID # [id number]: Final reports with documentation of one or more dose reduction techniques (e.g., Au tomated exposure control, adjustment of the mA and/or kV according to patient size, use of iterative reconstruction technique) 2010 [employer]- All Rights Reserved Reading location - IP/workstation name: [email or web address]
[2018-10-02] MEDS ORDERED: CEFEPIME 2 GM/D5W RTU 2 GM/50 ML RTUPB IV ONE (16:41)
[2018-10-02] MEDS ORDERED: VANCOMYCIN HCL INJ 1000 MG VIAL IV ONE (16:41)
[2018-10-02] MEDS ORDERED: LEVOFLOXACIN 750 MG/D5W RTU 750 MG/150 ML RTUPB IV ONE (16:41)
[2018-10-02] MEDS ORDERED: MIDAZOLAM 2 MG/2 ML INJ ONE (16:43)
--- NOTE | 2018-10-02 16:58 | ER Document Report ---
ED General - General Chief Complaint: Overdose Stated Complaint: POSSIBLE OVERDOSE Time Seen by Provider: 10/02/18 15:04 TRAVEL OUTSIDE OF THE [place] IN LAST 30 DAYS: No - HPI Notes: Patient is brought in for evaluation by EMS. History is pieced together from EMS, police, and later mother. Evidently the patient was acting normally earlier today. He was at home with his father. He locked himself in the bathroom, with the water running for approximately 2 hours. Saw him, he was acting very altered and aggressive. Police were eventually called. It took 4 police officers to calm him. EMS arrived at the scene. He was administered 400 mg of IM ketamine and transferred to the emergency department. Patient has a known history of drug and alcohol use. There was some concern via police that the patient was ingesting methamphetamines. According to the mother she is unaware of any history of that, but states she does know he uses alcohol and marijuana regularly. - Related Data Allergies/Adverse Reactions: No Known Allergies Allergy (Verified 02/17/18 07:44) Past Medical History - General Information source: Parent, Emergency Med Personnel - Social History Smoking Status: Current Every Day Smoker Frequency of alcohol use: Heavy Drug Abuse: Marijuana Family History: Reviewed & Not Pertinent Renal/ Medical History: Denies: Hx Peritoneal Dialysis Musculoskeletal Medical History: Reports Hx Musculoskeletal Deformity - corrective surgery 10 years ago Past Surgical History: Reports: Hx Orthopedic Surgery - R ankle with hardware - Immunizations Hx Diphtheria, Pertussis, Tetanus Vaccination: No Review of Systems - Review of Systems -: Yes ROS unobtainable due to patient's medical condition Physical Exam - Vital signs Vitals: Pulse Ox 98 10/02/18 14:51 - Notes Notes: Upon initial evaluation patient is agitated. Agonal respirations. Moving all 4 extremities spontaneously, but very aggressive. Head is normocephalic. He does have a small contusion with a 1 cm linear laceration over the right eyelid. No active bleeding. Pupils are equal, 5 mm, sluggish. Oral mucosa slightly dry. Heart is tachycardic with normal S1-S2. Mature evaluation reveals diminished respiratory drive, occasional rhonchi bilaterally. Abdomen soft, appears nontender, normoactive bowel sounds. Skin is diaphoretic and hot to the touch. Course - Re-evaluation Re-evalutation: 10/02/18 16:57 Patient arrived to the emergency department for evaluation. He was clearly altered, found to be febrile. Due to his level of disorientation and decreased mental status, I did feel that securing his airway was appropriate. Intubation was attempted and successful, please see separate procedure note. Patient had blood work ordered, EKG performed, chest x-ray ordered. Secondary to the signs of trauma on his face, I did also order CT scan of the head and face. These were found to be negative. Laboratory investigations were remarkable for an elevated white blood cell count and markedly elevated lactate. He was given IV fluids. I did also cover for infection with cefepime, vancomycin, and Levaquin. Given the story that the patient was acting normally prior to the bathroom, I find an infectious process to be quite unlikely. Nevertheless, cultures are all pending and he is being covered with antibiotic therapy. He is given IV fluids, antipyretics. Keeping sedated with propofol, which did require multiple titrations. Given a Versed bolus. Will admit the patient for further care. 10/02/18 17:[address] Garcia, he will come down to the ED and admit the patient. 10/02/18 17:09 - Vital Signs Vital signs: Temp Pulse Resp BP Pulse Ox 100.7 F H 15 98/48 L 94 10/02/18 16:58 10/02/18 16:58 10/02/18 16:58 10/02/18 16:58 - Laboratory Result Diagrams: 10/02/18 14:50 10/02/18 14:50 Laboratory results interpreted by me: 10/02/18 10/02/18 10/02/18 14:50 14:50 14:50 WBC 15.0 H Seg Neutrophils % 83.4 H Lymphocytes % 8.6 L Absolute Neutrophils 12.5 H Carbon Dioxide 17 L Anion Gap 23 H Creatinine 1.84 H Est GFR ( Amer) 51 L Est GFR (Non-Af Amer) 42 L Glucose 144 H Lactic Acid Calcium 10.4 H AST 98 H Total Protein 9.0 H Albumin 5.2 H Urine Blood SMALL H Salicylates < 1.0 L Acetaminophen < 10 L 10/02/18 14:50 WBC Seg Neutrophils % Lymphocytes % Absolute Neutrophils Carbon Dioxide Anion Gap Creatinine Est GFR ( Amer) Est GFR (Non-Af Amer) Glucose Lactic Acid 12.4 H Calcium AST Total Protein Albumin Urine Blood Salicylates Acetaminophen - Diagnostic Test Radiology reviewed: Reports reviewed - ET tube in appropriate place, no other acute cardiopulmonary disease. CT scan of the head and neck revealed nothing acute. Procedures - Intubation Orotracheal Time of Intubation: 15:01 Airway evaluation: Normal anatomy Mallampati Classification: Class 2 Medications: Etomidate, Succinylcholine Intubation method: Orotracheal Blade type: Yara Blade size: 3 Equipment used: Glidescope ETT size: 7.5 ETT secured at: Lips ETT secured at (cm): 25 Breath Sounds after Intubation: Equal End tidal CO2 confirmed: Yes Post Intubation Xray: Yes Intubation Complications: No complications Critical Care Note - Critical Care Note Total time excluding time spent on procedures (mins): 40 Discharge - Discharge Clinical Impression: Altered mental status, Polysubstance abuse, Overdose Condition: Stable Disposition: ADMITTED INPATIENT Admitting Provider: Radha (Hospitalist) Unit Admitted: ICU
[2018-10-02] MEDS ORDERED: SUCCINYLCHOLINE CHLORIDE INJ 200 MG/10 ML VIAL IV ONE (17:08)
[2018-10-02] MEDS ORDERED: MIDAZOLAM 2 MG/2 ML INJ IV ONE (17:08)
[2018-10-02] MEDS ORDERED: ACETAMINOPHEN 325 MG TABLET PO PRN (17:29)
--- NOTE | 2018-10-02 17:37 | PDOC H&P ---
History of Present Illness Patient complains of: drug overdose History of Present Illness: DAVID SÁNCHEZ is a 33 year old male with no significant PMH aside from a known polysubstance abuse and alcohol abuse who was brought in due to drug overdose. Patient was reportedly fine this morning with no acute issues or complaints per mother. He reportedly went to the bathroom and locked himself to smoke a weed laced with possible cocaine or methamphetamine. He was also drinking beer this morning. Patient was then noted by family to be confused and combative. They called EMS and patient had to be restrained by 3 police officers as he was extremely agitated. He was given ketamine en route. He was subsequently intubated upon arrival in the ER as he was reported to have very shallow and agonal breathing. Mother says he drinks at least 8 bottles of beer/day and his last drink was this morning. Past Surgical History Past Surgical History: Reports: Orthopedic Surgery - R ankle with hardware Social History Smoking Status: Current Every Day Smoker Family History Family History: Reviewed & Not Pertinent Parental Family History Reviewed: Yes - no premature CAD Children Family History Reviewed: No Sibling(s) Family History Reviewed.: No Medication/Allergy Home Medications: No Home Medications 10/02/18 Allergies/Adverse Reactions: No Known Allergies Allergy (Verified 02/17/18 07:44) Review of Systems All systems: reviewed and no additional remarkable complaints except as stated - as mentioned in HPI Physical Exam Vital Signs: Temp Pulse Resp BP Pulse Ox 100.7 F H 15 98/48 L 94 10/02/18 16:58 10/02/18 16:58 10/02/18 16:58 10/02/18 16:58 Intake & Output 10/01/18 10/02/18 10/03/18 06:59 06:59 06:59 Weight 162 lb 11.218 oz General appearance: PRESENT: well-developed, other - intubated, sedated Head exam: PRESENT: other - note of right facial hematoma Ear exam: PRESENT: normal external ear exam Neck exam: ABSENT: carotid bruit, JVD, lymphadenopathy, thyromegaly Respiratory exam: PRESENT: clear to auscultation stuart. ABSENT: rales, rhonchi, wheezes Cardiovascular exam: PRESENT: RRR. ABSENT: diastolic murmur, rubs, systolic murmur Pulses: PRESENT: normal dorsalis pedis pul GI/Abdominal exam: PRESENT: normal bowel sounds, soft. ABSENT: distended, guarding, mass, organolmegaly, rebound, tenderness Rectal exam: PRESENT: deferred Extremities exam: PRESENT: full ROM. ABSENT: calf tenderness, clubbing, pedal edema Neurological exam: PRESENT: other - intubated, sedated. ABSENT: motor sensory deficit Results Laboratory Results: 10/02/18 14:50 10/02/18 14:50 10/02/18 10/02/18 10/02/18 14:50 14:50 14:50 WBC 15.0 H RBC 4.91 Hgb 14.4 Hct 44.3 MCV 90 MCH 29.3 MCHC 32.5 RDW 13.8 Plt Count 234 Seg Neutrophils % 83.4 H Lymphocytes % 8.6 L Monocytes % 7.6 Eosinophils % 0.1 Basophils % 0.3 Absolute Neutrophils 12.5 H Absolute Lymphocytes 1.3 Absolute Monocytes 1.1 Absolute Eosinophils 0.0 Absolute Basophils 0.0 Sodium 143.0 Potassium 4.2 Chloride 103 Carbon Dioxide 17 L Anion Gap 23 H BUN 10 Creatinine 1.84 H Est GFR ( Amer) 51 L Est GFR (Non-Af Amer) 42 L Glucose 144 H Lactic Acid Calcium 10.4 H Magnesium 2.3 Total Bilirubin 0.6 AST 98 H ALT 71 Alkaline Phosphatase 79 Total Protein 9.0 H Albumin 5.2 H Urine Color YELLOW Urine Appearance CLEAR Urine pH 5.0 Ur Specific [place] 1.019 Urine Protein NEGATIVE Urine Glucose (UA) NEGATIVE Urine Ketones NEGATIVE Urine Blood SMALL H Urine Nitrite NEGATIVE Ur Leukocyte Esterase NEGATIVE Urine WBC (Auto) 0 Urine RBC (Auto) 1 10/02/18 14:50 WBC RBC Hgb Hct MCV MCH MCHC RDW Plt Count Seg Neutrophils % Lymphocytes % Monocytes % Eosinophils % Basophils % Absolute Neutrophils Absolute Lymphocytes Absolute Monocytes Absolute Eosinophils Absolute Basophils Sodium Potassium Chloride Carbon Dioxide Anion Gap BUN Creatinine Est GFR ( Amer) Est GFR (Non-Af Amer) Glucose Lactic Acid 12.4 H Calcium Magnesium Total Bilirubin AST ALT Alkaline Phosphatase Total Protein Albumin Urine Color Urine Appearance Urine pH Ur Specific [place] Urine Protein Urine Glucose (UA) Urine Ketones Urine Blood Urine Nitrite Ur Leukocyte Esterase Urine WBC (Auto) Urine RBC (Auto) Impressions: Chest X-Ray 10/02/18 15:05 IMPRESSION: NO ACUTE RADIOGRAPHIC FINDING IN THE CHEST. SATISFACTORY POSITION OF THE ENDOTRACHEAL TUBE AND NASOGASTRIC TUBE. Facial Bones CT 10/02/18 15:05 IMPRESSION: NO ACUTE FINDINGS. Head CT 10/02/18 15:05 IMPRESSION: NORMAL BRAIN CT WITHOUT CONTRAST. EVIDENCE OF ACUTE STROKE: NO. Assessment and Plan - Diagnosis (1) Acute encephalopathy Is this a current diagnosis for this admission?: Yes Plan: Likely toxic encephalopathy from drug overdose. No meningeal signs on physical examination. There was concern he may have used marijuana, cocaine and methamphetamine. UDS is positive for marijuana and cocaine. Currently intubated. (2) Acute respiratory failure with hypoxia Is this a current diagnosis for this admission?: Yes Plan: Currently intubated. Reduce FiO2 from 100 to 40%. (3) Polysubstance abuse Is this a current diagnosis for this admission?: Yes Plan: UDS results as mentioned. (4) Lactic acidosis Is this a current diagnosis for this admission?: Yes Plan: He was given 2L of fluid bolus in the ER. Continue normal saline at 150 cc/hr. Repeat lactic acid. (5) Acute kidney injury Is this a current diagnosis for this admission?: Yes Plan: Creatinine elevated from baseline. Continue IV fluids. Repeat BMP tomorrow. - Time Time Spent with patient: 25-34 minutes
[2018-10-02] MEDS: MIDAZOLAM HCL 50 MG/100 ML RTUINJ IV PRN (17:48)
[2018-10-02] MEDS ORDERED: DEXTROSE 40% GEL 15 GM TUBE PO PRN ×2 (17:49)
[2018-10-02] MEDS ORDERED: DEXTROSE 50%-WATER 25 GM/50 ML DISP.SYRIN IV PRN ×2 (17:49)
[2018-10-02] MEDS ORDERED: GLUCAGON,HUMAN RECOMB 1 MG INJ IM PRN (17:49)
[2018-10-02] MEDS: NORMAL SALINE 1000 ML 1,000 ML IV PRN (17:55)
[2018-10-02] MEDS ORDERED: VANCOMYCIN HCL 0 MG in DEXTROSE 5%-WATER 250 ML IV NR (18:00)
[2018-10-02 18:23] LABS: ARTERIAL BLOOD BASE EXCESS -2.3 mmol/L; ARTERIAL BLOOD HCO3 22.7 mmol/L (20-24); ARTERIAL BLOOD O2 SATURATION 99.3 % (94-98); ARTERIAL BLOOD PCO2 39.8 mmHg (35-45); ARTERIAL BLOOD PH 7.37 (7.35-7.45); ARTERIAL BLOOD PO2 188.2 mmHg (80-100); ARTERIAL BLOOD TOTAL CO2 23.9 mmol/L (23-27)
[2018-10-02 18:24] LABS: ARTERIAL BLOOD FIO2 100%
[2018-10-02] MEDS: PROPOFOL 1,000 MG/100 ML INFUS..BTL IV PRN (18:45)
[2018-10-02] MEDS ORDERED: SUCCINYLCHOLINE CHLORIDE INJ 200 MG/10 ML VIAL ONE (19:42)
--- NOTE | 2018-10-02 19:42 | RADIOLOGY REPORT (SQ) ---
EXAM DESCRIPTION: FOOT RIGHT 2 VIEWS COMPLETED DATE/TIME: 10/02/2018 7:26 pm REASON FOR STUDY: reported right foot pain to family COMPARISON: 01/25/2014 NUMBER OF VIEWS: Two views. TECHNIQUE: AP and lateral radiographic images acquired of the right foot. LIMITATIONS: None. FINDINGS: MINERALIZATION: Osteopenia. BONES: No acute fracture or dislocation. Extensive hardware in the mid and hindfoot. No evidence fo r hardware failure. . JOINTS: No effusions. SOFT TISSUES: No soft tissue swelling. No foreign body. OTHER: No other significant finding. IMPRESSION: No acute findings. Extensive hardware. No evidence for hardware failure. TECHNICAL DOCUMENTATION: JOB ID: [id number] [employer]- All Rights Reserved Reading location - IP/workstation name: [email or web address]
--- NOTE | 2018-10-02 19:43 | RADIOLOGY REPORT (SQ) ---
EXAM DESCRIPTION: CHEST SINGLE VIEW COMPLETED DATE/TIME: 10/02/2018 7:26 pm REASON FOR STUDY: ETT placement COMPARISON: 10/02/2018 1513 hours EXAM PARAMETERS: NUMBER OF VIEWS: One view TECHNIQUE: Single frontal radiograph of the chest. RADIATION DOSE: N/A LIMITATIONS: None. FINDINGS: TEMPORARY SUPPORT DEVICES:ETT in expected location. NG tube courses below the alex-diaphr agm in to the stomach. LUNGS AND PLEURA: Interval development of extensive atelectasis at the left base. Minimal opacity in the right mid zone. No effusions. No masses. No pneumothorax. MEDIASTINUM AND HILAR STRUCTURES: No masses. Contour normal. HEART AND VASCULAR STRUCTURES: Heart normal in size. normal vascularity. Aorta normal for age. BONES: No acute findings. OTHER: No other significant finding. IMPRESSION: Interval development of extensive atelectasis at the left base suggests in a possible mu cous plug. New minimal opacity in the right upper lobe. SUPPORT DEVICE(S) IN EXPECTED LOCATIONS. TECHNICAL DOCUMENTATION: JOB ID: [id number] [employer]- All Rights Reserved Reading location - IP/workstation name: [email or web address]
[2018-10-02] MEDS: DEXAMETHASONE SOD PHOS INJ 10 MG/1 ML VIAL IV SCH (21:39)
[2018-10-02] MEDS: CEFTRIAXONE 2 GM/D5W RTU 2 GM/50 ML RTUPB IV SCH (22:32)
[2018-10-02] MEDS: INSULIN LISPRO 100 UNIT/ML 3 ML VIAL SUBCUT SCH (23:42)
[2018-10-03] MEDS: INSULIN LISPRO 100 UNIT/ML 3 ML VIAL SUBCUT SCH ×4 (00:12→17:09)
[2018-10-03] MEDS: DEXAMETHASONE SOD PHOS INJ 10 MG/1 ML VIAL IV SCH ×4 (00:12→17:12)
[2018-10-03] MEDS: MIDAZOLAM HCL 50 MG/100 ML RTUINJ IV PRN ×4 (00:33→20:15)
[2018-10-03] MEDS: PROPOFOL 1,000 MG/100 ML INFUS..BTL IV PRN ×4 (00:50→19:46)
[2018-10-03] MEDS: NORMAL SALINE 1000 ML 1,000 ML IV PRN ×2 (00:52→09:30)
[2018-10-03 04:42] LABS: HEMATOCRIT 36.9 % (37.9-51.0); HEMOGLOBIN 12.4 g/dL (13.5-17.0); MEAN CORPUSCULAR HEMOGLOBIN 29.8 pg (27.0-33.4); MEAN CORPUSCULAR HGB CONC 33.6 g/dL (32.0-36.0); MEAN CORPUSCULAR VOLUME 89 fl (80-97); PLATELET COUNT 174 10^3/uL (150-450); RED BLOOD COUNT 4.16 10^6/uL (4.35-5.55); RED CELL DISTRIBUTION WIDTH 13.4 % (11.5-14.0); WHITE BLOOD COUNT 8.6 10^3/uL (4.0-10.5)
[2018-10-03 05:04] LABS: ALANINE AMINOTRANSFERASE 61 U/L (21-72); ALBUMIN 3.6 g/dL (3.5-5.0); ALKALINE PHOSPHATASE 62 U/L (38-126); ANION GAP 6 (5-19); ASPARTATE AMINO TRANSFERASE 71 U/L (17-59); BILIRUBIN,DIRECT 0.4 mg/dL (0.0-0.4); BILIRUBIN,TOTAL 0.6 mg/dL (0.2-1.3); BLOOD UREA NITROGEN 10 mg/dL (7-20); CALCIUM 9.4 mg/dL (8.4-10.2); CARBON DIOXIDE 24 mmol/L (22-30); CHLORIDE 116 mmol/L (98-107); GLUCOSE 82 mg/dL (75-110); POTASSIUM 4.3 mmol/L (3.6-5.0); SODIUM 146.4 mmol/L (137-145); TOTAL PROTEIN 6.7 g/dL (6.3-8.2)
[2018-10-03 05:12] LABS: ABSOLUTE LYMPHOCYTES# (MANUAL) 0.3 10^3/uL (0.5-4.7); ABSOLUTE MONOCYTES # (MANUAL) 0.1 10^3/uL (0.1-1.4); ABSOLUTE NEUTROPHILS# (MANUAL) 8.3 10^3/uL (1.7-8.2); BASOPHILS % (MANUAL) 0 % (0-2); EOSINOPHILS % (MANUAL) 0 % (0-6); LYMPHOCYTES % (MANUAL) 3 % (13-45); MONOCYTES % (MANUAL) 1 % (3-13); PLATELET COMMENT ADEQUATE; RBC MORPHOLOGY COMMENT NORMO-CYTIC/CHROMIC; SEGMENTED NEUTROPHILS % (MAN) 96 % (42-78); TOTAL CELLS COUNTED 100
[2018-10-03 05:20] LABS: ARTERIAL BLOOD BASE EXCESS -0.8 mmol/L; ARTERIAL BLOOD FIO2 40%; ARTERIAL BLOOD H2CO3 1.02 mmol/L (1.05-1.35); ARTERIAL BLOOD HCO3 22.7 mmol/L (20-24); ARTERIAL BLOOD O2 SATURATION 98.1 % (94-98); ARTERIAL BLOOD PCO2 33.9 mmHg (35-45); ARTERIAL BLOOD PH 7.44 (7.35-7.45); ARTERIAL BLOOD PO2 107.6 mmHg (80-100); ARTERIAL BLOOD TOTAL CO2 23.8 mmol/L (23-27)
[2018-10-03 05:24] LABS: CREATINE KINASE MB 2.61 ng/mL (<4.55); TROPONIN I 0.047 ng/mL
[2018-10-03] MEDS ORDERED: VANCOMYCIN HCL 750 MG in DEXTROSE 5%-WATER 250 ML IV SCH (06:00)
--- NOTE | 2018-10-03 07:59 | RADIOLOGY REPORT (SQ) ---
EXAM DESCRIPTION: XR CHEST 1 VIEW COMPLETED DATE/TME: 10/03/2018 06:00 CLINICAL HISTORY: 33 years Male, VENTED/ETT PLACEMENT/NGT/ASPIRATION COMPARISON: One day prior. NUMBER OF VIEWS/TECHNIQUE: 1/AP FINDINGS: Tip of an endotracheal tube is 1 cm from the jennifer;recommend 4 cm retraction of the endotracheal tube. Minimal atelectasis or scar of the left lung base. Adequate appearing enteric tube with tip at the left upper abdominal quadrant. Normal cardiac silhouette. No pneumothorax. Stable bony thorax. IMPRESSION: Tip of an endotracheal tube is 1 cm from the jennifer;recommend 4 cm retraction of the endotracheal tube.
[2018-10-03] MEDS: CEFTRIAXONE 2 GM/D5W RTU 2 GM/50 ML RTUPB IV SCH ×2 (09:31→22:35)
[2018-10-03] MEDS: PANTOPRAZOLE SODIUM 40 MG VIAL IV SCH (09:31)
[2018-10-03] MEDS: FONDAPARINUX SODIUM INJ 2.5 MG/0.5 ML DISP.SYRIN SUBCUT SCH (09:32)
--- NOTE | 2018-10-03 09:44 | RADIOLOGY REPORT (SQ) ---
EXAM DESCRIPTION: CHEST SINGLE VIEW COMPLETED DATE/TIME: 10/03/2018 9:22 am REASON FOR STUDY: ET Tube Retraction COMPARISON: 10/03/2018 earlier. FINDINGS: Single-view AP semi upright chest for endotracheal tube placement. Endotracheal tube tip looks appropriate. Nasogastric tube down, appropriate. Clear lungs. TECHNICAL DOCUMENTATION: JOB ID: [id number] Reading location - IP/workstation name: [email or web address]
--- NOTE | 2018-10-03 13:11 | EKG REPORT ---
SEVERITY:- NORMAL ECG - SINUS RHYTHM : Confirmed by: Annemarie Sierra 03-Oct-2018 13:10:31
--- NOTE | 2018-10-03 13:11 | EKG REPORT ---
SEVERITY:- OTHERWISE NORMAL ECG - SINUS TACHYCARDIA : Confirmed by: Annemarie Sierra 03-Oct-2018 13:10:37
[2018-10-03] MEDS: VANCOMYCIN HCL 1,000 MG in DEXTROSE 5%-WATER 250 ML IV SCH ×2 (13:40→22:35)
--- NOTE | 2018-10-03 14:12 | PSYCHOLOGICAL NOTE ---
Psych Note - Psych Note Date seen by psych provider: 10/03/18 Psych Note: Reason for Consult: overdose Patient arrived to [facility] via EMS to Trauma 1 following a possible drug overdose. EMS reported they were called to the patient's home following a possible drug overdose. EMS reports patient was smoking marijuana that was "laced with crystal meth". Patient is currently intubated; please contact the Behavioral Health Team when extubated.
[2018-10-03] MEDS ORDERED: NORMAL SALINE 1000 ML 1,000 ML IV PRN (14:58)
--- NOTE | 2018-10-03 15:05 | PDOC PROGRESS REPORT ---
Subjective Progress Note for:: 10/03/18 Subjective:: DAVID SÁNCHEZ is a 33 year old male with no significant PMH aside from a known polysubstance abuse and alcohol abuse who was brought in due to drug overdose. He was intubated for acute toxic encephalopathy. Per RN, when weaning off sedation was attempted, patient was very agitated and "tried to sit up". He is saturating well on minimal vent settings. No significa nt secretions from the ET. Reason For Visit: ACUTE TOXIC ENCEPHALOPATHY,ACUTE RESPIRATORY Physical Exam Vital Signs: Temp Pulse Resp BP Pulse Ox 97.5 F 65 14 148/88 H 98 10/03/18 14:01 10/03/18 12:00 10/03/18 14:01 10/03/18 14:01 10/03/18 14:01 Intake & Output 10/02/18 10/03/18 10/04/18 06:59 06:59 06:59 Intake Total 3626 1572 Output Total 3425 2190 Balance 201 -618 Weight 174 lb 13.225 oz General appearance: PRESENT: well-developed, other - intubated, sedated Eye exam: PRESENT: conjunctiva pink, EOMI, PERRLA. ABSENT: scleral icterus Ear exam: PRESENT: normal external ear exam Mouth exam: PRESENT: moist, tongue midline Neck exam: ABSENT: carotid bruit, JVD, lymphadenopathy, thyromegaly Respiratory exam: PRESENT: clear to auscultation stuart. ABSENT: rales, rhonchi, wheezes Cardiovascular exam: PRESENT: RRR. ABSENT: diastolic murmur, rubs, systolic murmur Pulses: PRESENT: normal dorsalis pedis pul GI/Abdominal exam: PRESENT: normal bowel sounds, soft. ABSENT: distended, guarding, mass, organolmegaly, rebound, tenderness Rectal exam: PRESENT: deferred Extremities exam: PRESENT: full ROM. ABSENT: calf tenderness, clubbing, pedal edema Neurological exam: PRESENT: other - intubated, sedated. ABSENT: motor sensory deficit Results Laboratory Results: 10/03/18 03:47 10/03/18 03:47 10/02/18 10/02/18 10/02/18 14:50 14:50 14:50 WBC 15.0 H RBC 4.91 Hgb 14.4 Hct 44.3 MCV 90 MCH 29.3 MCHC 32.5 RDW 13.8 Plt Count 234 Seg Neutrophils % 83.4 H Lymphocytes % 8.6 L Monocytes % 7.6 Eosinophils % 0.1 Basophils % 0.3 Absolute Neutrophils 12.5 H Absolute Lymphocytes 1.3 Absolute Monocytes 1.1 Absolute Eosinophils 0.0 Absolute Basophils 0.0 Carbonic Acid HCO3/H2CO3 Ratio ABG pH ABG pCO2 ABG pO2 ABG HCO3 ABG O2 Saturation ABG Base Excess FiO2 Sodium 143.0 Potassium 4.2 Chloride 103 Carbon Dioxide 17 L Anion Gap 23 H BUN 10 Creatinine 1.84 H Est GFR ( Amer) 51 L Est GFR (Non-Af Amer) 42 L Glucose 144 H Lactic Acid Calcium 10.4 H Magnesium 2.3 Total Bilirubin 0.6 AST 98 H ALT 71 Alkaline Phosphatase 79 Total Protein 9.0 H Albumin 5.2 H Urine Color YELLOW Urine Appearance CLEAR Urine pH 5.0 Ur Specific Odell 1.019 Urine Protein NEGATIVE Urine Glucose (UA) NEGATIVE Urine Ketones NEGATIVE Urine Blood SMALL H Urine Nitrite NEGATIVE Ur Leukocyte Esterase NEGATIVE Urine WBC (Auto) 0 Urine RBC (Auto) 1 10/02/18 10/02/18 10/02/18 14:50 18:06 18:26 WBC RBC Hgb Hct MCV MCH MCHC RDW Plt Count Seg Neutrophils % Lymphocytes % Monocytes % Eosinophils % Basophils % Absolute Neutrophils Absolute Lymphocytes Absolute Monocytes Absolute Eosinophils Absolute Basophils Carbonic Acid 1.20 HCO3/H2CO3 Ratio 18:1 ABG pH 7.37 ABG pCO2 39.8 ABG pO2 188.2 H ABG HCO3 22.7 ABG O2 Saturation 99.3 H ABG Base Excess -2.3 FiO2 100% Sodium Potassium Chloride Carbon Dioxide Anion Gap BUN Creatinine Est GFR ( Amer) Est GFR (Non-Af Amer) Glucose Lactic Acid 12.4 H 1.2 Calcium Magnesium Total Bilirubin AST ALT Alkaline Phosphatase Total Protein Albumin Urine Color Urine Appearance Urine pH Ur Specific Odell Urine Protein Urine Glucose (UA) Urine Ketones Urine Blood Urine Nitrite Ur Leukocyte Esterase Urine WBC (Auto) Urine RBC (Auto) 10/03/18 10/03/18 10/03/18 03:47 03:47 05:05 WBC 8.6 RBC 4.16 L Hgb 12.4 L Hct 36.9 L MCV 89 MCH 29.8 MCHC 33.6 RDW 13.4 Plt Count 174 Seg Neutrophils % Not Reportable Lymphocytes % Not Reportable Monocytes % Not Reportable Eosinophils % Not Reportable Basophils % Not Reportable Absolute Neutrophils Not Reportable Absolute Lymphocytes Not Reportable Absolute Monocytes Not Reportable Absolute Eosinophils Not Reportable Absolute Basophils Not Reportable Carbonic Acid 1.02 L HCO3/H2CO3 Ratio 22:1 ABG pH 7.44 ABG pCO2 33.9 L ABG pO2 107.6 H ABG HCO3 22.7 ABG O2 Saturation 98.1 H ABG Base Excess -0.8 FiO2 40% Sodium 146.4 H Potassium 4.3 Chloride 116 H Carbon Dioxide 24 Anion Gap 6 BUN 10 Creatinine 1.15 Est GFR ( Amer) > 60 Est GFR (Non-Af Amer) > 60 Glucose 82 Lactic Acid Calcium 9.4 Magnesium 2.5 H Total Bilirubin 0.6 AST 71 H ALT 61 Alkaline Phosphatase 62 Total Protein 6.7 Albumin 3.6 Urine Color Urine Appearance Urine pH Ur Specific Odell Urine Protein Urine Glucose (UA) Urine Ketones Urine Blood Urine Nitrite Ur Leukocyte Esterase Urine WBC (Auto) Urine RBC (Auto) 10/02/18 10/03/18 10/03/18 14:50 03:47 04:43 Creatine Kinase 430 H 732 H CK-MB (CK-2) 2.61 Troponin I 0.047 Impressions: Foot X-Ray 10/02/18 00:00 IMPRESSION: No acute findings. Extensive hardware. No evidence for hardware failure. Facial Bones CT 10/02/18 15:05 IMPRESSION: NO ACUTE FINDINGS. Head CT 10/02/18 15:05 IMPRESSION: NORMAL BRAIN CT WITHOUT CONTRAST. EVIDENCE OF ACUTE STROKE: NO. Assessment and Plan - Diagnosis (1) Acute encephalopathy Is this a current diagnosis for this admission?: Yes Plan: Likely toxic encephalopathy from drug overdose. No meningeal signs on physical examination. There was concern he may have used marijuana, cocaine and methamphetamine. UDS is positive for marijuana and cocaine. Currently intubated. Per RN, when weaning off sedation was attempted, patient was very agitated and "tried to sit up". (2) Acute respiratory failure with hypoxia Is this a current diagnosis for this admission?: Yes Plan: Currently intubated and doing well on minimal vent settings. (3) Polysubstance abuse Is this a current diagnosis for this admission?: Yes Plan: UDS results as mentioned. (4) Lactic acidosis Is this a current diagnosis for this admission?: Yes Plan: He was given 2L of fluid bolus in the ER. Continue normal saline at 150 cc/hr. Repeat lactic acid. 10/02: Lactic acidosis has resolved with IV fluids. Reduce IV rate to 100 cc/hr. (5) Acute kidney injury Is this a current diagnosis for this admission?: Yes Plan: Creatinine elevated from baseline. Continue IV fluids. Repeat BMP tomorrow. 10/03: Resolved with IV fluids. (6) Alcohol abuse Is this a current diagnosis for this admission?: Yes Plan: Last alcohol intake was yesterday 10/02 in the morning. Anticipating he will go into alcohol withdrawal in the next 24-48 hrs. Will add banana bag. - Time Time Spent with patient: 25-34 minutes
[2018-10-03] MEDS: NORMAL SALINE 1000 ML 1,000 ML with POTASSIUM CHLORIDE 20 MEQ, MAGNESIUM SULFATE 8 MEQ,... IV SCH ×5 (17:11)
--- NOTE | 2018-10-03 21:10 | RADIOLOGY REPORT (SQ) ---
EXAM DESCRIPTION: XR CHEST 1 VIEW COMPLETED DATE/TME: 10/03/2018 00:00 CLINICAL HISTORY: 33 years, Male, confirm ETT and NG placement COMPARISON: Prior study from 10/02/2018 NUMBER OF VIEWS: Two TECHNIQUE: Two frontal radiographs of the chest were obtained LIMITATIONS: None. FINDINGS: Endotracheal tube tip is located in the trachea, approximately 5.3 cm above the jennifer. Enteric drainage tube tip projects about the gastric body. Cardiac and mediastinal contours are stable. Lungs are clear. No pleural effusion or pneumothorax. IMPRESSION: Enteric drainage tube tip projects about the gastric body. Endotracheal tube tip is located in the trachea, approximately 5.3 cm above the jennifer. Otherwise, clear lungs. copyright 2010 [employer]- All Rights Reserved
[2018-10-04] MEDS: DEXAMETHASONE SOD PHOS INJ 10 MG/1 ML VIAL IV SCH ×4 (00:56→17:15)
[2018-10-04] MEDS: INSULIN LISPRO 100 UNIT/ML 3 ML VIAL SUBCUT SCH ×4 (00:56→17:29)
[2018-10-04] MEDS: PROPOFOL 1,000 MG/100 ML INFUS..BTL IV PRN ×4 (00:57→17:13)
[2018-10-04] MEDS: MIDAZOLAM HCL 50 MG/100 ML RTUINJ IV PRN ×2 (01:00→04:35)
[2018-10-04 03:35] LABS: ABSOLUTE LYMPHOCYTES (AUTO) 0.5 10^3/uL (0.5-4.7); ABSOLUTE MONOCYTES (AUTO) 0.3 10^3/uL (0.1-1.4); ABSOLUTE NEUT (AUTO) 8.5 10^3/uL (1.7-8.2); BASOPHILS % (AUTO) 0.3 % (0-2); EOSINOPHILS % (AUTO) 0.1 % (0-6); HEMATOCRIT 39.4 % (37.9-51.0); HEMOGLOBIN 13.1 g/dL (13.5-17.0); LYMPHOCYTES % (AUTO) 5.7 % (13-45); MEAN CORPUSCULAR HEMOGLOBIN 29.5 pg (27.0-33.4); MEAN CORPUSCULAR HGB CONC 33.2 g/dL (32.0-36.0); MEAN CORPUSCULAR VOLUME 89 fl (80-97); MONOCYTES % (AUTO) 3.6 % (3-13); PLATELET COUNT 184 10^3/uL (150-450); RED BLOOD COUNT 4.43 10^6/uL (4.35-5.55); RED CELL DISTRIBUTION WIDTH 13.7 % (11.5-14.0); SEGMENTED NEUTROPHILS % (AUTO) 90.3 % (42-78); TOTAL CELLS COUNTED % (AUTO) 100 %; WHITE BLOOD COUNT 9.4 10^3/uL (4.0-10.5)
[2018-10-04 03:46] LABS: ALANINE AMINOTRANSFERASE 50 U/L (21-72); ALBUMIN 3.6 g/dL (3.5-5.0); ALKALINE PHOSPHATASE 62 U/L (38-126); ANION GAP 10 (5-19); ASPARTATE AMINO TRANSFERASE 50 U/L (17-59); BILIRUBIN,DIRECT 0.3 mg/dL (0.0-0.4); BILIRUBIN,TOTAL 0.3 mg/dL (0.2-1.3); BLOOD UREA NITROGEN 10 mg/dL (7-20); CALCIUM 9.7 mg/dL (8.4-10.2); CARBON DIOXIDE 23 mmol/L (22-30); CHLORIDE 112 mmol/L (98-107); GLUCOSE 117 mg/dL (75-110); POTASSIUM 4.1 mmol/L (3.6-5.0); SODIUM 144.5 mmol/L (137-145)
[2018-10-04 04:33] LABS: ARTERIAL BLOOD BASE EXCESS 0.6 mmol/L; ARTERIAL BLOOD HCO3 24.4 mmol/L (20-24); ARTERIAL BLOOD O2 SATURATION 97.2 % (94-98); ARTERIAL BLOOD PCO2 36.7 mmHg (35-45); ARTERIAL BLOOD PH 7.44 (7.35-7.45); ARTERIAL BLOOD PO2 90.6 mmHg (80-100); ARTERIAL BLOOD TOTAL CO2 25.5 mmol/L (23-27)
[2018-10-04 04:34] LABS: ARTERIAL BLOOD FIO2 40%
--- NOTE | 2018-10-04 06:53 | RADIOLOGY REPORT (SQ) ---
EXAM DESCRIPTION: XR CHEST 1 VIEW COMPLETED DATE/TME: 10/04/2018 06:00 CLINICAL HISTORY: 33 years Male, VENTED/ETT PLACEMENT/NGT/ASPIRATION COMPARISON: One day prior. NUMBER OF VIEWS/TECHNIQUE: 1/AP FINDINGS: Clear lungs of adequate volume, and normal cardiac silhouette. Adequate appearing endotracheal tube. Adequate appearing enteric tube partially obscured. No pneumothorax. Stable bony thorax. IMPRESSION: No significant change.
[2018-10-04] MEDS: VANCOMYCIN HCL 1,000 MG in DEXTROSE 5%-WATER 250 ML IV SCH (06:55)
[2018-10-04] MEDS ORDERED: FENTANYL CITRATE INJ/PF 100 MCG/2 ML AMPUL ONE (07:37)
[2018-10-04] MEDS: FONDAPARINUX SODIUM INJ 2.5 MG/0.5 ML DISP.SYRIN SUBCUT SCH (07:57)
[2018-10-04] MEDS ORDERED: HYDRALAZINE HCL INJ/PF 20 MG/1 ML SDV ONE (08:03)
[2018-10-04] MEDS ORDERED: LORAZEPAM INJ 2 MG/1 ML VIAL ONE (08:11)
[2018-10-04] MEDS ORDERED: LORAZEPAM 24 MG/240 ML BAG IV ONE (08:18)
[2018-10-04] MEDS ORDERED: LORAZEPAM INJ 2 MG/1 ML VIAL IV ONE (08:45)
[2018-10-04] MEDS: PANTOPRAZOLE SODIUM 40 MG VIAL IV SCH (10:04)
[2018-10-04] MEDS: LORAZEPAM 24 MG/ D5W 240 ML IV PRN ×5 (10:54→21:26)
[2018-10-04] MEDS: FENTANYL CITRATE/PF 600 MCG/60 ML BAG IV PRN (15:06)
--- NOTE | 2018-10-04 15:38 | PDOC PROGRESS REPORT ---
Subjective Progress Note for:: 10/04/18 Subjective:: DAVID SÁNCHEZ is a 33 year old male with no significant PMH aside from a known polysubstance abuse and alcohol abuse who was brought in due to drug overdose on top of alcohol ingestion. He was intubated for acute toxic encephalopathy. 10/03: Per RN, when weaning off sedation was attempted, patient was very agitated and "tried to sit up". He is saturating well on minimal vent settings. No significant secretions from the ET. 10/04: Patient is extremely agitated upon encounter even on Versed and Diprivan drips. He also had bradycardia in the 40s likely from Diprivan as this resolved when Diprivan was minimized. Patient is trying to sit up and was actually openi ng eyes and tracking while on two sedatives. Revised sedation to minimize Diprivan and switch Versed to Ativan drip and he has responded better to this regimen. Patient is now likely in alcohol withdrawal. Family is wondering if he could be discharged to inpatient psych with substance abuse program when he gets extubated. Explained this will be addressed by psych when he is more stable and off the ventilator. Reason For Visit: ACUTE TOXIC ENCEPHALOPATHY,ACUTE RESPIRATORY Physical Exam Vital Signs: Temp Pulse Resp BP Pulse Ox 97.7 F 68 14 137/83 H 97 10/04/18 15:01 10/04/18 14:00 10/04/18 15:01 10/04/18 15:01 10/04/18 15:01 Intake & Output 10/03/18 10/04/18 10/05/18 06:59 06:59 06:59 Intake Total 3626 3744 2174 Output Total 3425 4040 2180 Balance 201 -296 -6 Weight 174 lb 13.225 oz 169 lb 15.622 oz General appearance: PRESENT: other - agitated on sedation Head exam: PRESENT: atraumatic, normocephalic Eye exam: PRESENT: conjunctiva pink, EOMI, PERRLA. ABSENT: scleral icterus Ear exam: PRESENT: normal external ear exam Mouth exam: PRESENT: moist, tongue midline Respiratory exam: PRESENT: clear to auscultation stuart. ABSENT: rales, rhonchi, wheezes Cardiovascular exam: PRESENT: RRR. ABSENT: diastolic murmur, rubs, systolic murmur Pulses: PRESENT: normal dorsalis pedis pul GI/Abdominal exam: PRESENT: normal bowel sounds, soft. ABSENT: distended, guarding, mass, organolmegaly, rebound, tenderness Rectal exam: PRESENT: deferred Neurological exam: PRESENT: CN II-XII grossly intact, other - agitated on sedation, intubated. ABSENT: motor sensory deficit Results Laboratory Results: 10/04/18 03:10 10/04/18 03:10 10/04/18 10/04/18 10/04/18 03:10 03:10 03:10 WBC 9.4 RBC 4.43 Hgb 13.1 L Hct 39.4 MCV 89 MCH 29.5 MCHC 33.2 RDW 13.7 Plt Count 184 Seg Neutrophils % 90.3 H Lymphocytes % 5.7 L Monocytes % 3.6 Eosinophils % 0.1 Basophils % 0.3 Absolute Neutrophils 8.5 H Absolute Lymphocytes 0.5 Absolute Monocytes 0.3 Absolute Eosinophils 0.0 Absolute Basophils 0.0 Carbonic Acid HCO3/H2CO3 Ratio ABG pH ABG pCO2 ABG pO2 ABG HCO3 ABG O2 Saturation ABG Base Excess FiO2 Sodium 144.5 Potassium 4.1 Chloride 112 H Carbon Dioxide 23 Anion Gap 10 BUN 10 Creatinine 1.00 Est GFR ( Amer) > 60 Est GFR (Non-Af Amer) > 60 Glucose 117 H Calcium 9.7 Total Bilirubin 0.3 AST 50 ALT 50 Alkaline Phosphatase 62 Total Protein 7.0 Albumin 3.6 TSH 0.11 L 10/04/18 04:15 WBC RBC Hgb Hct MCV MCH MCHC RDW Plt Count Seg Neutrophils % Lymphocytes % Monocytes % Eosinophils % Basophils % Absolute Neutrophils Absolute Lymphocytes Absolute Monocytes Absolute Eosinophils Absolute Basophils Carbonic Acid 1.10 HCO3/H2CO3 Ratio 22:1 ABG pH 7.44 ABG pCO2 36.7 ABG pO2 90.6 ABG HCO3 24.4 H ABG O2 Saturation 97.2 ABG Base Excess 0.6 FiO2 40% Sodium Potassium Chloride Carbon Dioxide Anion Gap BUN Creatinine Est GFR ( Amer) Est GFR (Non-Af Amer) Glucose Calcium Total Bilirubin AST ALT Alkaline Phosphatase Total Protein Albumin TSH 10/02/18 14:50 Clean Catch Midstream Urine Culture - Final NO GROWTH 2 DAYS 10/02/18 10/03/18 10/03/18 14:50 03:47 04:43 Creatine Kinase 430 H 732 H CK-MB (CK-2) 2.61 Troponin I 0.047 Impressions: Foot X-Ray 10/02/18 00:00 IMPRESSION: No acute findings. Extensive hardware. No evidence for hardware failure. Facial Bones CT 10/02/18 15:05 IMPRESSION: NO ACUTE FINDINGS. Head CT 10/02/18 15:05 IMPRESSION: NORMAL BRAIN CT WITHOUT CONTRAST. EVIDENCE OF ACUTE STROKE: NO. Chest X-Ray 10/04/18 06:00 IMPRESSION: No significant change. Assessment and Plan - Diagnosis (1) Delirium tremens Is this a current diagnosis for this admission?: Yes (2) Acute encephalopathy Is this a current diagnosis for this admission?: Yes Plan: Likely toxic encephalopathy from multiple drug overdose on top of alcohol ingestion. No meningeal signs on physical examination. There was concern he may have used marijuana, cocaine and methamphetamine. UDS is positive for marijuana and cocaine. 10/04: Patient is extremely agitated upon encounter even on Versed and Diprivan drips. He also had bradycardia in the 40s likely from Diprivan as this resolved when Diprivan was minimized. Patient is trying to sit up and was actually opening eyes and tracking while on sedation. Revised sedation to minimize Diprivan and switch Versed to Ativan drip and he has responded better to this regimen. Family is wondering if he could be discharged to inpatient psych with substance abuse program when he gets extubated. Explained this will be addressed by psych when he is more stable and off the ventilator. Discontinue vancomycin, Rocephin and dexamethasone. (3) Acute respiratory failure with hypoxia Is this a current diagnosis for this admission?: Yes Plan: Currently intubated. Saturating well on minimal vent settings but has bouts of agitation. (4) Polysubstance abuse Is this a current diagnosis for this admission?: Yes Plan: UDS results as mentioned. Update psych when patient is extubated. (5) Lactic acidosis Is this a current diagnosis for this admission?: Yes Plan: He was given 2L of fluid bolus in the ER. Continue normal saline at 150 cc/hr. Repeat lactic acid. 10/04: Resolved. Reduce IV fluids to 75 cc/hr. (6) Acute kidney injury Is this a current diagnosis for this admission?: Yes Plan: Creatinine elevated from baseline. Continue IV fluids. Repeat BMP tomorrow. 10/04: Resolved. Reduce IV fluids to 75 cc/hr. - Time Time Spent with patient: 35 or more minutes
[2018-10-04] MEDS: NORMAL SALINE 1000 ML 1,000 ML with POTASSIUM CHLORIDE 20 MEQ, MAGNESIUM SULFATE 8 MEQ,... IV SCH ×5 (17:35)
[2018-10-04] MEDS ORDERED: RISPERIDONE 0.25 MG TABLET NG SCH (22:00)
--- NOTE | 2018-10-04 23:41 | EKG REPORT ---
SEVERITY:- BORDERLINE ECG - SINUS RHYTHM PROBABLE LEFT ATRIAL ABNORMALITY BORDERLINE PROLONGED QT INTERVAL : Confirmed by: Annemarie Sierra 04-Oct-2018 23:40:26
[2018-10-05] MEDS: INSULIN LISPRO 100 UNIT/ML 3 ML VIAL SUBCUT SCH ×5 (00:59→23:12)
[2018-10-05] MEDS: DEXAMETHASONE SOD PHOS INJ 10 MG/1 ML VIAL IV SCH ×2 (00:59→05:48)
--- NOTE | 2018-10-05 01:59 | RADIOLOGY REPORT (SQ) ---
CT HEAD WITHOUT IV CONTRAST HISTORY: Altered mental status. COMPARISON: 10/02/2018 TECHNIQUE: CT scan of the brain without IV contrast. This exam was performed according to our departmental dose-optimization program, which includes automated exposure control, adjustment of the mA and/or kV according to patient size and/or use of iterative reconstruction technique. FINDINGS: The ventricles, cisterns, and sulci are unremarkable. No focal white matter lesions are seen. No evidence of acute infarction, intracranial hemorrhage, extra-axial fluid collection, or midline shift. No air-fluid levels are seen in the paranasal sinuses to suggest acute sinusitis. No depressed skull fracture. IMPRESSION: No acute intracranial findings.
[2018-10-05] MEDS: LORAZEPAM 24 MG/ D5W 240 ML IV PRN ×6 (02:04→23:11)
[2018-10-05 03:34] LABS: ARTERIAL BLOOD BASE EXCESS 1.3 mmol/L; ARTERIAL BLOOD FIO2 40%; ARTERIAL BLOOD H2CO3 1.07 mmol/L (1.05-1.35); ARTERIAL BLOOD HCO3 24.7 mmol/L (20-24); ARTERIAL BLOOD O2 SATURATION 98.7 % (94-98); ARTERIAL BLOOD PCO2 35.4 mmHg (35-45); ARTERIAL BLOOD PH 7.46 (7.35-7.45); ARTERIAL BLOOD PO2 127.3 mmHg (80-100); ARTERIAL BLOOD TOTAL CO2 25.8 mmol/L (23-27)
[2018-10-05 04:24] LABS: HEMATOCRIT 37.8 % (37.9-51.0); HEMOGLOBIN 12.5 g/dL (13.5-17.0); MEAN CORPUSCULAR HEMOGLOBIN 29.3 pg (27.0-33.4); MEAN CORPUSCULAR VOLUME 89 fl (80-97); PLATELET COUNT 190 10^3/uL (150-450); RED BLOOD COUNT 4.26 10^6/uL (4.35-5.55); RED CELL DISTRIBUTION WIDTH 13.8 % (11.5-14.0); WHITE BLOOD COUNT 11.1 10^3/uL (4.0-10.5)
[2018-10-05 04:39] LABS: ALANINE AMINOTRANSFERASE 42 U/L (21-72); ALBUMIN 3.3 g/dL (3.5-5.0); ALKALINE PHOSPHATASE 57 U/L (38-126); ANION GAP 6 (5-19); ASPARTATE AMINO TRANSFERASE 29 U/L (17-59); BILIRUBIN,DIRECT 0.3 mg/dL (0.0-0.4); BILIRUBIN,TOTAL 0.4 mg/dL (0.2-1.3); BLOOD UREA NITROGEN 7 mg/dL (7-20); CALCIUM 9.3 mg/dL (8.4-10.2); CARBON DIOXIDE 22 mmol/L (22-30); CHLORIDE 114 mmol/L (98-107); GLUCOSE 135 mg/dL (75-110); PHOSPHORUS 3.4 mg/dL (2.5-4.5); SODIUM 141.6 mmol/L (137-145); TOTAL PROTEIN 6.5 g/dL (6.3-8.2)
[2018-10-05 04:51] LABS: ABSOLUTE LYMPHOCYTES# (MANUAL) 0.4 10^3/uL (0.5-4.7); ABSOLUTE MONOCYTES # (MANUAL) 0.3 10^3/uL (0.1-1.4); ABSOLUTE NEUTROPHILS# (MANUAL) 10.3 10^3/uL (1.7-8.2); BASOPHILS % (MANUAL) 0 % (0-2); EOSINOPHILS % (MANUAL) 0 % (0-6); LYMPHOCYTES % (MANUAL) 4 % (13-45); MONOCYTES % (MANUAL) 3 % (3-13); NUCLEATED RED BLOOD CELLS 2 /100 WBC (0); SEGMENTED NEUTROPHILS % (MAN) 93 % (42-78); TOTAL CELLS COUNTED 100
[2018-10-05 04:52] LABS: PLATELET COMMENT ADEQUATE
[2018-10-05 04:54] LABS: TARGET CELLS 1+
[2018-10-05] MEDS: PROPOFOL 1,000 MG/100 ML INFUS..BTL IV PRN ×2 (06:17→17:56)
--- NOTE | 2018-10-05 07:22 | RADIOLOGY REPORT (SQ) ---
EXAM DESCRIPTION: XR CHEST 1 VIEW COMPLETED DATE/TME: 10/05/2018 06:00 CLINICAL HISTORY: 33 years Male, VENTED/ETT PLACEMENT/NGT/ASPIRATION COMPARISON: One day prior. NUMBER OF VIEWS/TECHNIQUE: 1/AP FINDINGS: Clear lungs of adequate volume, and normal cardiac silhouette. Adequate appearing endotracheal tube. Adequate appearing enteric tube partially obscured. No pneumothorax. Stable bony thorax. IMPRESSION: No significant change.
[2018-10-05] MEDS: NORMAL SALINE 1000 ML 1,000 ML IV PRN (07:52)
[2018-10-05] MEDS: FONDAPARINUX SODIUM INJ 2.5 MG/0.5 ML DISP.SYRIN SUBCUT SCH (09:22)
[2018-10-05] MEDS: PANTOPRAZOLE SODIUM 40 MG VIAL IV SCH (09:22)
[2018-10-05] MEDS: RISPERIDONE 1 MG TAB.RAPDIS NG SCH ×2 (11:06→21:01)
[2018-10-05] MEDS: FENTANYL CITRATE/PF 600 MCG/60 ML BAG IV PRN (13:52)
--- NOTE | 2018-10-05 14:42 | PDOC PROGRESS REPORT ---
Subjective Progress Note for:: 10/05/18 Subjective:: DAVID SÁNCHEZ is a 33 year old male with no significant PMH aside from a known polysubstance abuse and alcohol abuse who was brought in due to drug overdose on top of alcohol ingestion. He was intubated for acute toxic encephalopathy. 10/03: Per RN, when weaning off sedation was attempted, patient was very agitated and "tried to sit up". He is saturating well on minimal vent settings. No significant secretions from the ET. 10/04: Patient is extremely agitated upon encounter even on Versed and Diprivan drips. He also had bradycardia in the 40s likely from Diprivan as this resolved when Diprivan was minimized. Patient is trying to sit up and was actually openi ng eyes and tracking while on two sedatives. Revised sedation to minimize Diprivan and switch Versed to Ativan drip and he has responded better to this regimen. Patient is now likely in alcohol withdrawal. Family is wondering if he could be discharged to inpatient psych with substance abuse program when he gets extubated. Explained this will be addressed by psych when he is more stable and off the ventilator. 10/05: No acute issues. Agitation is well controlled and he is sedated adequately with Ativan, diprivan and fentanyl drips. No fever. No significant secretions per ET. He is saturating well on minimal vent settings with FiO2 at 30%. Reason For Visit: ACUTE TOXIC ENCEPHALOPATHY,ACUTE RESPIRATORY Physical Exam Vital Signs: Temp Pulse Resp BP Pulse Ox 97.9 F 72 14 141/91 H 98 10/05/18 10:01 10/05/18 07:00 10/05/18 13:50 10/05/18 10:00 10/05/18 13:50 Intake & Output 10/04/18 10/05/18 10/06/18 06:59 06:59 06:59 Intake Total 3744 3930 451 Output Total 4040 3425 300 Balance -296 505 151 Weight 169 lb 15.622 oz 169 lb 8.568 oz General appearance: PRESENT: no acute distress, well-developed, well-nourished Head exam: PRESENT: atraumatic, normocephalic Eye exam: PRESENT: conjunctiva pink, EOMI, PERRLA. ABSENT: scleral icterus Ear exam: PRESENT: normal external ear exam Mouth exam: PRESENT: moist, tongue midline Neck exam: ABSENT: carotid bruit, JVD, lymphadenopathy, thyromegaly Respiratory exam: PRESENT: clear to auscultation stuart. ABSENT: rales, rhonchi, wheezes Cardiovascular exam: PRESENT: RRR. ABSENT: diastolic murmur, rubs, systolic mu rmur Pulses: PRESENT: normal dorsalis pedis pul GI/Abdominal exam: PRESENT: normal bowel sounds, soft. ABSENT: distended, guarding, mass, organolmegaly, rebound, tenderness Rectal exam: PRESENT: deferred Extremities exam: PRESENT: full ROM. ABSENT: calf tenderness, clubbing, pedal edema Neurological exam: PRESENT: CN II-XII grossly intact, other - intubated, sedated. ABSENT: motor sensory deficit Results Laboratory Results: 10/05/18 04:00 10/05/18 04:00 10/05/18 10/05/18 10/05/18 03:15 04:00 04:00 WBC 11.1 H RBC 4.26 L Hgb 12.5 L Hct 37.8 L MCV 89 MCH 29.3 MCHC 33.0 RDW 13.8 Plt Count 190 Seg Neutrophils % Not Reportable Lymphocytes % Not Reportable Monocytes % Not Reportable Eosinophils % Not Reportable Basophils % Not Reportable Absolute Neutrophils Not Reportable Absolute Lymphocytes Not Reportable Absolute Monocytes Not Reportable Absolute Eosinophils Not Reportable Absolute Basophils Not Reportable Carbonic Acid 1.07 HCO3/H2CO3 Ratio 23:1 ABG pH 7.46 H ABG pCO2 35.4 ABG pO2 127.3 H ABG HCO3 24.7 H ABG O2 Saturation 98.7 H ABG Base Excess 1.3 FiO2 40% Sodium 141.6 Potassium 4.0 Chloride 114 H Carbon Dioxide 22 Anion Gap 6 BUN 7 Creatinine 0.77 Est GFR ( Amer) > 60 Est GFR (Non-Af Amer) > 60 Glucose 135 H Calcium 9.3 Phosphorus 3.4 Magnesium 2.9 H Total Bilirubin 0.4 AST 29 ALT 42 Alkaline Phosphatase 57 Total Protein 6.5 Albumin 3.3 L 10/02/18 14:50 Clean Catch Midstream Urine Culture - Final NO GROWTH 2 DAYS 10/02/18 10/03/18 10/03/18 14:50 03:47 04:43 Creatine Kinase 430 H 732 H CK-MB (CK-2) 2.61 Troponin I 0.047 Impressions: Foot X-Ray 10/02/18 00:00 IMPRESSION: No acute findings. Extensive hardware. No evidence for hardware failure. Facial Bones CT 10/02/18 15:05 IMPRESSION: NO ACUTE FINDINGS. Head CT 10/05/18 00:00 IMPRESSION: No acute intracranial findings. Chest X-Ray 10/05/18 06:00 IMPRESSION: No significant change. Assessment and Plan - Diagnosis (1) Acute encephalopathy Is this a current diagnosis for this admission?: Yes Plan: Likely toxic encephalopathy from multiple drug overdose on top of alcohol ingest ion. No meningeal signs on physical examination. There was concern he may have used marijuana, cocaine and methamphetamine. UDS is positive for marijuana and cocaine. 10/04: Patient is extremely agitated upon encounter even on Versed and Diprivan drips. He also had bradycardia in the 40s likely from Diprivan as this resolved when Diprivan was minimized. Patient is trying to sit up and was actually opening eyes and tracking while on sedation. Revised sedation to minimize Diprivan and switch Versed to Ativan drip and he has responded better to this regimen. Family is wondering if he could be discharged to inpatient psych with substance abuse program when he gets extubated. Explained this will be addressed by psych when he is more stable and off the ventilator. Discontinue vancomycin, Rocephin and dexamethasone. 10/05: Agitation is well controlled and he is sedated adequately with Ativan, diprivan and fentanyl drips. (2) Delirium tremens Is this a current diagnosis for this admission?: Yes Plan: Sedation as as per number 1. Continue banana bag. (3) Acute respiratory failure with hypoxia Is this a current diagnosis for this admission?: Yes Plan: Currently intubated. Saturating well on minimal vent settings with FiO2 at 30%. (4) Polysubstance abuse Is this a current diagnosis for this admission?: Yes Plan: UDS results as mentioned. Update psych when patient is extubated. (5) Lactic acidosis Is this a current diagnosis for this admission?: Yes Plan: He was given 2L of fluid bolus in the ER. Continue normal saline at 150 cc/hr. Repeat lactic acid. 10/04: Resolved. Reduce IV fluids to 75 cc/hr. (6) Acute kidney injury Is this a current diagnosis for this admission?: Yes Plan: Creatinine elevated from baseline. Continue IV fluids. Repeat BMP tomorrow. 10/04: Resolved. Reduce IV fluids to 75 cc/hr. - Time Time Spent with patient: 25-34 minutes
[2018-10-05] MEDS: NORMAL SALINE 1000 ML 1,000 ML with POTASSIUM CHLORIDE 20 MEQ, MAGNESIUM SULFATE 8 MEQ,... IV SCH ×5 (17:06)
[2018-10-05] MEDS ORDERED: FUROSEMIDE INJ/PF 20 MG/2 ML SDV IV ONE (23:45)
[2018-10-06] MEDS: HYDRALAZINE HCL INJ/PF 20 MG/1 ML SDV IV PRN ×2 (00:36→18:05)
[2018-10-06] MEDS: LORAZEPAM 24 MG/ D5W 240 ML IV PRN ×3 (02:09→08:48)
[2018-10-06 04:53] LABS: ARTERIAL BLOOD BASE EXCESS 4.7 mmol/L; ARTERIAL BLOOD H2CO3 1.09 mmol/L (1.05-1.35); ARTERIAL BLOOD HCO3 27.8 mmol/L (20-24); ARTERIAL BLOOD O2 SATURATION 98.4 % (94-98); ARTERIAL BLOOD PCO2 36.3 mmHg (35-45); ARTERIAL BLOOD TOTAL CO2 28.9 mmol/L (23-27)
[2018-10-06 04:54] LABS: ARTERIAL BLOOD FIO2 30%
[2018-10-06 05:06] LABS: HEMATOCRIT 41.7 % (37.9-51.0); HEMOGLOBIN 13.9 g/dL (13.5-17.0); MEAN CORPUSCULAR HEMOGLOBIN 29.6 pg (27.0-33.4); MEAN CORPUSCULAR HGB CONC 33.3 g/dL (32.0-36.0); MEAN CORPUSCULAR VOLUME 89 fl (80-97); PLATELET COUNT 193 10^3/uL (150-450); RED BLOOD COUNT 4.69 10^6/uL (4.35-5.55); RED CELL DISTRIBUTION WIDTH 13.6 % (11.5-14.0); WHITE BLOOD COUNT 11.7 10^3/uL (4.0-10.5)
[2018-10-06] MEDS: INSULIN LISPRO 100 UNIT/ML 3 ML VIAL SUBCUT SCH ×3 (05:12→17:44)
[2018-10-06] MEDS: PROPOFOL 1,000 MG/100 ML INFUS..BTL IV PRN (05:17)
[2018-10-06 05:18] LABS: ANION GAP 5 (5-19); BLOOD UREA NITROGEN 8 mg/dL (7-20); CALCIUM 9.5 mg/dL (8.4-10.2); CARBON DIOXIDE 24 mmol/L (22-30); CHLORIDE 111 mmol/L (98-107); GLUCOSE 100 mg/dL (75-110); PHOSPHORUS 2.9 mg/dL (2.5-4.5); POTASSIUM 3.9 mmol/L (3.6-5.0); SODIUM 140.4 mmol/L (137-145)
[2018-10-06 05:33] LABS: ABSOLUTE MONOCYTES # (MANUAL) 1.1 10^3/uL (0.1-1.4); BASOPHILS % (MANUAL) 0 % (0-2); EOSINOPHILS % (MANUAL) 0 % (0-6); LYMPHOCYTES % (MANUAL) 18 % (13-45); MONOCYTES % (MANUAL) 9 % (3-13); SEGMENTED NEUTROPHILS % (MAN) 70 % (42-78); TOTAL CELLS COUNTED 100
[2018-10-06 05:34] LABS: ABSOLUTE LYMPHOCYTES# (MANUAL) 2.5 10^3/uL (0.5-4.7); ABSOLUTE NEUTROPHILS# (MANUAL) 8.2 10^3/uL (1.7-8.2); TOXIC GRANULATION 1+; TOXIC VACUOLATION PRESENT
[2018-10-06 05:35] LABS: POIKILOCYTOSIS SLIGHT
[2018-10-06 05:36] LABS: PLATELET COMMENT ADEQUATE; TEAR DROP CELLS SLIGHT
[2018-10-06] MEDS: NORMAL SALINE 1000 ML 1,000 ML IV PRN (06:21)
--- NOTE | 2018-10-06 06:35 | RADIOLOGY REPORT (SQ) ---
EXAM DESCRIPTION: XR CHEST 1 VIEW COMPLETED DATE/TME: 10/06/2018 06:00 CLINICAL HISTORY: 33 years, Male, resp failure COMPARISON: 10/05/2018 chest NUMBER OF VIEWS: 1 TECHNIQUE: Portable chest LIMITATIONS: None. FINDINGS: Heart size is normal. Endotracheal and enteric tubes are in place. Lungs are clear. No pneumothorax IMPRESSION: Stable chest copyright 2010 [employer] [facility] [employer]- All Rights Reserved
[2018-10-06] MEDS: RISPERIDONE 1 MG TAB.RAPDIS NG SCH ×2 (10:33→21:27)
--- NOTE | 2018-10-06 11:24 | PDOC PROGRESS REPORT ---
Subjective Progress Note for:: 10/06/18 Subjective:: The patient remains intubated this morning and we are weaning the Lorazepam infusion. He tolerated pressure support trials yesterday. Reason For Visit: ACUTE TOXIC ENCEPHALOPATHY,ACUTE RESPIRATORY Failure Physical Exam Vital Signs: Temp Pulse Resp BP Pulse Ox 97.5 F 57 L 11 L 138/89 H 95 10/06/18 10:01 10/06/18 07:00 10/06/18 10:01 10/06/18 10:00 10/06/18 10:01 Intake & Output 10/05/18 10/06/18 10/07/18 06:59 06:59 06:59 Intake Total 3930 4966 157 Output Total 3425 3485 125 Balance 505 1481 32 Weight 76.9 kg 79.5 kg General appearance: PRESENT: no acute distress, well-developed, other - Intubated and weaning from sedation Head exam: PRESENT: atraumatic, normocephalic Eye exam: PRESENT: other - Did not assess Ear exam: PRESENT: normal external ear exam Mouth exam: PRESENT: other - Endotracheal tube in place Throat exam: PRESENT: other - Endotracheal tube in place Neck exam: ABSENT: carotid bruit, JVD, lymphadenopathy Respiratory exam: PRESENT: clear to auscultation stuart, symmetrical. ABSENT: rales, rhonchi, tachypnea, wheezes Cardiovascular exam: PRESENT: RRR, +S1, +S2, systolic murmur - 2/6 at right sternal border Pulses: PRESENT: normal radial pulses, normal dorsalis pedis pul GI/Abdominal exam: PRESENT: normal bowel sounds, soft. ABSENT: distended, tenderness Rectal exam: PRESENT: deferred Gentrourinary exam: PRESENT: indwelling catheter Extremities exam: ABSENT: pedal edema Musculoskeletal exam: PRESENT: normal inspection Neurological exam: ABSENT: alert, awake - Currently weaning sedation Psychiatric exam: ABSENT: agitated Focused psych exam: ABSENT: restlessness Skin exam: PRESENT: dry, normal color, warm. ABSENT: rash Results Laboratory Results: 10/06/18 04:15 10/06/18 04:15 10/06/18 10/06/18 10/06/18 03:59 04:15 04:15 WBC 11.7 H RBC 4.69 Hgb 13.9 Hct 41.7 MCV 89 MCH 29.6 MCHC 33.3 RDW 13.6 Plt Count 193 Seg Neutrophils % Not Reportable Lymphocytes % Not Reportable Monocytes % Not Reportable Eosinophils % Not Reportable Basophils % Not Reportable Absolute Neutrophils Not Reportable Absolute Lymphocytes Not Reportable Absolute Monocytes Not Reportable Absolute Eosinophils Not Reportable Absolute Basophils Not Reportable Carbonic Acid Cancelled HCO3/H2CO3 Ratio Cancelled ABG pH Cancelled ABG pCO2 Cancelled ABG pO2 Cancelled ABG HCO3 Cancelled ABG O2 Saturation Cancelled ABG Base Excess Cancelled FiO2 Cancelled Sodium 140.4 Potassium 3.9 Chloride 111 H Carbon Dioxide 24 Anion Gap 5 BUN 8 Creatinine 0.80 Est GFR ( Amer) > 60 Est GFR (Non-Af Amer) > 60 Glucose 100 Calcium 9.5 Phosphorus 2.9 Magnesium 2.8 H 10/06/18 04:30 WBC RBC Hgb Hct MCV MCH MCHC RDW Plt Count Seg Neutrophils % Lymphocytes % Monocytes % Eosinophils % Basophils % Absolute Neutrophils Absolute Lymphocytes Absolute Monocytes Absolute Eosinophils Absolute Basophils Carbonic Acid 1.09 HCO3/H2CO3 Ratio 25:1 ABG pH 7.50 H ABG pCO2 36.3 ABG pO2 111.0 H ABG HCO3 27.8 H ABG O2 Saturation 98.4 H ABG Base Excess 4.7 FiO2 30% Sodium Potassium Chloride Carbon Dioxide Anion Gap BUN Creatinine Est GFR ( Amer) Est GFR (Non-Af Amer) Glucose Calcium Phosphorus Magnesium 10/02/18 10/03/18 10/03/18 14:50 03:47 04:43 Creatine Kinase 430 H 732 H CK-MB (CK-2) 2.61 Troponin I 0.047 Impressions: Foot X-Ray 10/02/18 00:00 IMPRESSION: No acute findings. Extensive hardware. No evidence for hardware failure. Facial Bones CT 10/02/18 15:05 IMPRESSION: NO ACUTE FINDINGS. Head CT 10/05/18 00:00 IMPRESSION: No acute intracranial findings. Chest X-Ray 10/06/18 06:00 IMPRESSION: Stable chest copyright 2010 [facility]- All Rights Reserved Assessment and Plan - Diagnosis (1) Acute encephalopathy Is this a current diagnosis for this admission?: Yes Plan: 10/06/2018-the patient was extremely agitated on October 04. He required lorazepam continuous infusion. This is changed from to prevent and Versed. He also was started on low-dose Risperdal by Dr. Berry. He is doing much better today. We are weaning him from the lorazepam and will extubate if no issues arrive. We will then be able to assess any residual encephalopathy. (2) Delirium tremens Is this a current diagnosis for this admission?: Yes Plan: 10/06/2018-serum alcohol was 14 on admission. We will continue to monitor the patient. Once off the lorazepam infusion he will have as needed lorazepam available. (3) Acute respiratory failure with hypoxia Is this a current diagnosis for this admission?: Yes Plan: 10/06/2018-patient is doing well. He did well on pressure support. We are weaning lorazepam infusion and plan to extubate today. (4) Polysubstance abuse Is this a current diagnosis for this admission?: Yes Plan: 10/06/2018-urine drug screen positive for marijuana, cocaine and alcohol. Psychiatry consult has been requested. Once extubated psych will see the patient and we will determine next steps from there including providing information for rehab. I did speak with psychiatry department. The patient was seen when initially admitted in the emergency department. There is no involuntary commitment in place. (5) Lactic acidosis Is this a current diagnosis for this admission?: Yes Plan: 10/06/2018-resolved. Currently on normal saline IV maintenance 75 mL/h. Once he is able to take p.o. diet then will DC IV fluids. (6) Acute kidney injury Is this a current diagnosis for this admission?: Yes Plan: 10/06/2018-acute kidney injury likely from hypovolemia versus acute toxic effects of polysubstance use. Kidney function is back to normal after IV fluids. Continue to monitor renal function. - Time Time Spent with patient: 35 or more minutes Medications reviewed and adjusted accordingly: Yes Anticipated discharge: Home
[2018-10-06] MEDS: FONDAPARINUX SODIUM INJ 2.5 MG/0.5 ML DISP.SYRIN SUBCUT SCH (13:26)
[2018-10-06] MEDS: NORMAL SALINE 1000 ML 1,000 ML with POTASSIUM CHLORIDE 20 MEQ, MAGNESIUM SULFATE 8 MEQ,... IV SCH ×5 (17:44)
[2018-10-06] MEDS: LORAZEPAM INJ 2 MG/1 ML VIAL IV PRN (22:22)
[2018-10-07] MEDS: INSULIN LISPRO 100 UNIT/ML 3 ML VIAL SUBCUT SCH ×3 (00:43→13:51)
[2018-10-07] MEDS: LORAZEPAM INJ 2 MG/1 ML VIAL IV PRN ×2 (02:42→07:37)
[2018-10-07 03:21] LABS: HEMATOCRIT 45.9 % (37.9-51.0); HEMOGLOBIN 15.3 g/dL (13.5-17.0); MEAN CORPUSCULAR HEMOGLOBIN 29.2 pg (27.0-33.4); MEAN CORPUSCULAR HGB CONC 33.3 g/dL (32.0-36.0); MEAN CORPUSCULAR VOLUME 88 fl (80-97); PLATELET COUNT 199 10^3/uL (150-450); RED BLOOD COUNT 5.24 10^6/uL (4.35-5.55); RED CELL DISTRIBUTION WIDTH 13.5 % (11.5-14.0); WHITE BLOOD COUNT 9.8 10^3/uL (4.0-10.5)
[2018-10-07 03:40] LABS: ABSOLUTE LYMPHOCYTES# (MANUAL) 1.3 10^3/uL (0.5-4.7); ABSOLUTE NEUTROPHILS# (MANUAL) 7.5 10^3/uL (1.7-8.2); BAND NEUTROPHILS % (MANUAL) 4 % (3-5); BASOPHILS % (MANUAL) 0 % (0-2); EOSINOPHILS % (MANUAL) 0 % (0-6); LYMPHOCYTES % (MANUAL) 13 % (13-45); MONOCYTES % (MANUAL) 10 % (3-13); SEGMENTED NEUTROPHILS % (MAN) 73 % (42-78); TOTAL CELLS COUNTED 100
[2018-10-07 03:41] LABS: HYPOCHROMASIA 1+; PLATELET COMMENT ADEQUATE; POIKILOCYTOSIS 1+; STOMATOCYTES 1+
[2018-10-07 03:42] LABS: ALANINE AMINOTRANSFERASE 73 U/L (21-72); ALBUMIN 4.1 g/dL (3.5-5.0); ALKALINE PHOSPHATASE 71 U/L (38-126); ANION GAP 5 (5-19); ASPARTATE AMINO TRANSFERASE 64 U/L (17-59); BILIRUBIN,DIRECT 0.3 mg/dL (0.0-0.4); BILIRUBIN,TOTAL 0.7 mg/dL (0.2-1.3); BLOOD UREA NITROGEN 6 mg/dL (7-20); CALCIUM 9.4 mg/dL (8.4-10.2); CARBON DIOXIDE 24 mmol/L (22-30); CHLORIDE 111 mmol/L (98-107); GLUCOSE 91 mg/dL (75-110); POTASSIUM 3.3 mmol/L (3.6-5.0); SODIUM 139.9 mmol/L (137-145); TOTAL PROTEIN 7.7 g/dL (6.3-8.2)
[2018-10-07 03:49] LABS: ARTERIAL BLOOD BASE EXCESS 3.6 mmol/L; ARTERIAL BLOOD H2CO3 1.09 mmol/L (1.05-1.35); ARTERIAL BLOOD HCO3 26.8 mmol/L (20-24); ARTERIAL BLOOD O2 SATURATION 97.3 % (94-98); ARTERIAL BLOOD PCO2 36.1 mmHg (35-45); ARTERIAL BLOOD PH 7.49 (7.35-7.45); ARTERIAL BLOOD TOTAL CO2 27.9 mmol/L (23-27)
[2018-10-07 03:54] LABS: ARTERIAL BLOOD FIO2 ROOM AIR
--- NOTE | 2018-10-07 06:56 | RADIOLOGY REPORT (SQ) ---
EXAM DESCRIPTION: X-ray single view chest. CLINICAL HISTORY: 33 years Male, resp failure COMPARISON: 10/06/2018 and 10/05/2018. TECHNIQUE: Single portable x-ray view of the chest performed on 10/07/2018 at 5:58 AM FINDINGS: The lungs are well expanded and are clear. There is no evidence of a pneumothorax. The cardiac silhouette is normal in size and configuration. The mediastinal contours are normal. No acute osseous abnormality is identified. No focal soft tissue abnormalities are seen. Lines and tubes: There has been interval removal of the endotracheal tube and feeding tube. IMPRESSION: No evidence of acute intrathoracic disease. Interval removal of the endotracheal tube and feeding tube.
[2018-10-07] MEDS ORDERED: LORAZEPAM INJ 2 MG/1 ML VIAL IV ONE (09:15)
[2018-10-07] MEDS ORDERED: THIAMINE HCL 100 MG TABLET NG SCH (10:00)
--- NOTE | 2018-10-07 10:22 | PDOC PROGRESS REPORT ---
Subjective Progress Note for:: 10/07/18 Subjective:: Somewhat agitated this morning. Aggressive with the nurse. Reason For Visit: ACUTE TOXIC ENCEPHALOPATHY,ACUTE RESPIRATORY Physical Exam Vital Signs: Temp Pulse Resp BP Pulse Ox 99.0 F 86 20 134/83 H 96 10/07/18 08:00 10/07/18 08:00 10/07/18 08:00 10/07/18 08:00 10/07/18 08:00 Intake & Output 10/06/18 10/07/18 10/08/18 06:59 06:59 06:59 Intake Total 4966 1237 Output Total 3485 3290 400 Balance 4151 -2813 -400 Weight 79.5 kg 77 kg General appearance: PRESENT: no acute distress, other - Recently medicated. Patient is lethargic. Head exam: PRESENT: atraumatic, normocephalic Ear exam: PRESENT: normal external ear exam Mouth exam: PRESENT: dry mucosa, tongue midline Respiratory exam: PRESENT: clear to auscultation stuart, symmetrical, unlabored. ABSENT: accessory muscle use, rales, rhonchi, wheezes Cardiovascular exam: PRESENT: RRR, +S1, +S2, systolic murmur - 1/6 right sternal border GI/Abdominal exam: PRESENT: normal bowel sounds, soft. ABSENT: distended, guarding, tenderness Rectal exam: PRESENT: deferred Gentrourinary exam: PRESENT: indwelling catheter Extremities exam: ABSENT: pedal edema Neurological exam: PRESENT: awake, oriented to person, oriented to place. ABSENT: alert - Somewhat lethargic but just medicated, oriented to time Psychiatric exam: PRESENT: flat affect. ABSENT: agitated - Was quite agitated earlier this morning, anxious Focused psych exam: ABSENT: delusional, restlessness Results Laboratory Results: 10/07/18 03:05 10/07/18 03:05 10/07/18 10/07/18 10/07/18 03:05 03:05 03:34 WBC 9.8 RBC 5.24 Hgb 15.3 Hct 45.9 MCV 88 MCH 29.2 MCHC 33.3 RDW 13.5 Plt Count 199 Seg Neutrophils % Not Reportable Lymphocytes % Not Reportable Monocytes % Not Reportable Eosinophils % Not Reportable Basophils % Not Reportable Absolute Neutrophils Not Reportable Absolute Lymphocytes Not Reportable Absolute Monocytes Not Reportable Absolute Eosinophils Not Reportable Absolute Basophils Not Reportable Carbonic Acid 1.09 HCO3/H2CO3 Ratio 24:1 ABG pH 7.49 H ABG pCO2 36.1 ABG pO2 88.0 ABG HCO3 26.8 H ABG O2 Saturation 97.3 ABG Base Excess 3.6 FiO2 ROOM AIR Sodium 139.9 Potassium 3.3 L Chloride 111 H Carbon Dioxide 24 Anion Gap 5 BUN 6 L Creatinine 0.79 Est GFR ( Amer) > 60 Est GFR (Non-Af Amer) > 60 Glucose 91 Calcium 9.4 Phosphorus 3.0 Magnesium 2.5 H Total Bilirubin 0.7 AST 64 H ALT 73 H Alkaline Phosphatase 71 Total Protein 7.7 Albumin 4.1 10/02/18 10/03/18 10/03/18 14:50 03:47 04:43 Creatine Kinase 430 H 732 H CK-MB (CK-2) 2.61 Troponin I 0.047 Impressions: Foot X-Ray 10/02/18 00:00 IMPRESSION: No acute findings. Extensive hardware. No evidence for hardware failure. Facial Bones CT 10/02/18 15:05 IMPRESSION: NO ACUTE FINDINGS. Head CT 10/05/18 00:00 IMPRESSION: No acute intracranial findings. Chest X-Ray 10/07/18 06:00 IMPRESSION: No evidence of acute intrathoracic disease. Interval removal of the endotracheal tube and feeding tube. Assessment and Plan - Diagnosis (1) Acute encephalopathy Is this a current diagnosis for this admission?: Yes Plan: 10/06/2018-the patient was extremely agitated on October 04. He required lorazepam continuous infusion. This is changed from to prevent and Versed. He also was started on low-dose Risperdal by Dr. Berry. He is doing much better today. We are weaning him from the lorazepam and will extubate if no issues arrive. We will then be able to assess any residual encephalopathy. 10/07/2018-the patient was successfully extubated but has been quite agitated. He required lorazepam this morning as he was being aggressive with the nurse. Danay osborne was saying things such as "get your hands off of me". He chew through his wrist restraint as well. He will have as needed medications available and psychiatry consult is pending. This could still be related to his polysubstance abuse or possibly related to current medications. (2) Delirium tremens Is this a current diagnosis for this admission?: Yes Plan: 10/06/2018-serum alcohol was 14 on admission. We will continue to monitor the patient. Once off the lorazepam infusion he will have as needed lorazepam available. 10/07/2018-no evidence of tremors. He is oriented to person and place. As noted above altered mental status could be due to previous substance use versus current medications. (3) Acute respiratory failure with hypoxia Is this a current diagnosis for this admission?: Yes Plan: 10/06/2018-patient is doing well. He did well on pressure support. We are weaning lorazepam infusion and plan to extubate today. 10/07/2018-the patient was successfully extubated yesterday. He is doing well. Oxygen saturations remain greater than 90% on room air. (4) Polysubstance abuse Is this a current diagnosis for this admission?: Yes Plan: 10/06/2018-urine drug screen positive for marijuana, cocaine and alcohol. Psychiatry consult has been requested. Once extubated psych will see the patient and we will determine next steps from there including providing information for rehab. I did speak with psychiatry department. The patient was seen when initially admitted in the emergency department. There is no involuntary commitment in place. 10/07/2018-history of polysubstance abuse. Some of his encephalopathy could be residual effect. We will continue to monitor. Psychiatry will be seeing the patient as well. Consider program for substance abuse. (5) Lactic acidosis Is this a current diagnosis for this admission?: Yes Plan: 10/06/2018-resolved. Currently on normal saline IV maintenance 75 mL/h. Once he is able to take p.o. diet then will DC IV fluids. 10/07/2018-as above (6) Acute kidney injury Is this a current diagnosis for this admission?: Yes Plan: 10/06/2018-acute kidney injury likely from hypovolemia versus acute toxic effects of polysubstance use. Kidney function is back to normal after IV fluids. Continue to monitor renal function. 10/07/2018-as above - Time Time Spent with patient: 15-24 minutes Medications reviewed and adjusted accordingly: Yes
[2018-10-07] MEDS ORDERED: NORMAL SALINE 1000 ML 1,000 ML IV PRN (10:27)
[2018-10-07] MEDS ORDERED: HALOPERIDOL 5 MG TABLET PO PRN (10:27)
[2018-10-07] MEDS ORDERED: POTASSI CL 20 MEQ/50 ML RIDER 20 MEQ/50 ML RTUPB IV ONE (11:00)
[2018-10-07] MEDS ORDERED: ACETAMINOPHEN 325 MG TABLET NG PRN (12:34)
[2018-10-07] MEDS ORDERED: HALOPERIDOL 5 MG TABLET NG PRN (12:35)
[2018-10-07] MEDS: ENOXAPARIN SODIUM INJ 40 MG/0.4 ML DISP.SYRIN SUBCUT SCH (13:10)
[2018-10-07] MEDS: RISPERIDONE 1 MG TAB.RAPDIS NG SCH (13:17)
[2018-10-07] MEDS ORDERED: ACETAMINOPHEN 325 MG TABLET PO PRN (15:30)
--- NOTE | 2018-10-07 16:54 | PSYCHOLOGICAL NOTE ---
Psych Note - Psych Note Date seen by psych provider: 10/07/18 Time seen by psych provider: 12:50 Psych Note: Reason for Consult: Overdose Patient's family at bedside per patient's request Patient is observed with his family at bedside. Patient states "stay" and nods his head when asked if he wanted his family to step out during evaluation. Patient reports that he cannot remember what he took. He denies any mental health history or taking any medications for mental health. When asked if he wants assistance with substance abuse he states yes. Clinician notes patient's family tells the patient to say yes when asked this question. Patient's family reports the family has a very strong pollard and support each other. They report the patient needs assistance with substance abuse. Patient is semi-alert and orientated to person and place. Patient is clearly st ill having difficulties after being extubated. He does deny suicidal and homicidal ideation and reports it was accidental overdose. He denies remembering what he took. Patient asked for assistance in substance abuse however it is noted that the patient was directed by his family in that response. Patient has poor eye contact. Answers with only 1-2 words at a time which is very quiet and difficult to hear. Medication recommendations per [facility]'s contracted psychiatrist Dr. Aicha GALARZA are as follows Haldol 5 mg every 6 hours as needed Cogentin 1 mg daily Substance abuse Impression\\plan: Patient was just extubated yesterday. He is having difficulty with conversation. He does report that he wants assistance with substance abuse. He denies remembering what he took prior to arrival. Patient will be followed by the behavioral health team as patient is still having difficulty fully engaging with evaluation. Dr. Solorio was consulted to care management of this patient; attending physicians in agreement with recommendations and disposition.
[2018-10-07] MEDS: NORMAL SALINE 1000 ML 1,000 ML with POTASSIUM CHLORIDE 20 MEQ, MAGNESIUM SULFATE 8 MEQ,... IV SCH ×5 (17:33)
[2018-10-07] MEDS ORDERED: RISPERIDONE 1 MG TAB.RAPDIS PO SCH (22:00)
[2018-10-07] MEDS: RISPERIDONE 1 MG TAB.RAPDIS PO SCH (22:57)
[2018-10-07] MEDS: BENZTROPINE MESYLATE 1 MG TABLET PO SCH (22:57)
[2018-10-08 05:29] LABS: ANION GAP 10 (5-19); BLOOD UREA NITROGEN 10 mg/dL (7-20); CALCIUM 9.6 mg/dL (8.4-10.2); CARBON DIOXIDE 23 mmol/L (22-30); CHLORIDE 108 mmol/L (98-107); GLUCOSE 80 mg/dL (75-110); POTASSIUM 3.5 mmol/L (3.6-5.0); SODIUM 140.9 mmol/L (137-145)
[2018-10-08] MEDS: ENOXAPARIN SODIUM INJ 40 MG/0.4 ML DISP.SYRIN SUBCUT SCH (09:40)
[2018-10-08] MEDS: RISPERIDONE 1 MG TAB.RAPDIS PO SCH ×2 (09:41→21:03)
[2018-10-08] MEDS: THIAMINE HCL 100 MG TABLET PO SCH (09:41)
[2018-10-08] MEDS ORDERED: THIAMINE HCL 100 MG TABLET PO SCH (10:00)
[2018-10-08] MEDS: FOLIC ACID 1 MG TABLET PO SCH (15:41)
[2018-10-08] MEDS: BENZTROPINE MESYLATE 1 MG TABLET PO SCH (21:03)
[2018-10-08] MEDS: LORAZEPAM INJ 2 MG/1 ML VIAL IV PRN (21:03)
[2018-10-09 06:39] LABS: HEMOGLOBIN 14.7 g/dL (13.5-17.0); MEAN CORPUSCULAR HEMOGLOBIN 29.5 pg (27.0-33.4); MEAN CORPUSCULAR HGB CONC 33.4 g/dL (32.0-36.0); MEAN CORPUSCULAR VOLUME 89 fl (80-97); PLATELET COUNT 205 10^3/uL (150-450); RED BLOOD COUNT 4.97 10^6/uL (4.35-5.55); RED CELL DISTRIBUTION WIDTH 13.2 % (11.5-14.0); WHITE BLOOD COUNT 13.4 10^3/uL (4.0-10.5)
--- NOTE | 2018-10-09 06:51 | PDOC PROGRESS REPORT ---
Subjective Progress Note for:: 10/08/18 Subjective:: Family at the bedside. The patient is quite relaxed. Meaningful communication with most questions however occasional nonsensical answers to questions Reason For Visit: ACUTE TOXIC ENCEPHALOPATHY,ACUTE RESPIRATORY Physical Exam Vital Signs: Temp Pulse Resp BP Pulse Ox 98.2 F 76 19 121/98 H 94 10/08/18 08:00 10/08/18 08:00 10/08/18 08:00 10/08/18 08:00 10/08/18 08:00 Intake & Output 10/07/18 10/08/18 10/09/18 06:59 06:59 06:59 Intake Total 1237 1023 Output Total 3290 1245 25 Balance -2053 -222 -25 Weight 77 kg 74.3 kg General appearance: PRESENT: no acute distress, cooperative, well-developed Head exam: PRESENT: atraumatic, normocephalic Mouth exam: PRESENT: dry mucosa, tongue midline Neck exam: ABSENT: carotid bruit, JVD, lymphadenopathy Respiratory exam: PRESENT: clear to auscultation stuart, symmetrical, unlabored. ABSENT: accessory muscle use, rales, rhonchi, tachypnea, wheezes Cardiovascular exam: PRESENT: RRR, +S1, +S2, systolic murmur - 2/6 GI/Abdominal exam: PRESENT: normal bowel sounds, soft. ABSENT: distended, tenderness Rectal exam: PRESENT: deferred Gentrourinary exam: PRESENT: indwelling catheter Extremities exam: ABSENT: pedal edema Musculoskeletal exam: PRESENT: normal inspection Neurological exam: PRESENT: alert, awake, oriented to person, oriented to place, oriented to situation, other - He interjects nonsensical comments during the encounter. He is somewhat dysarthric but this is likely related to medication. Psychiatric exam: PRESENT: flat affect. ABSENT: agitated, anxious Focused psych exam: PRESENT: other - Still exhibits occasional nonsensical, however answers most questions appropriately. Speech is slightly dysarthric. This could be still medication related. Results Laboratory Results: 10/07/18 03:05 10/08/18 04:10 10/08/18 04:10 Sodium 140.9 Potassium 3.5 L Chloride 108 H Carbon Dioxide 23 Anion Gap 10 BUN 10 Creatinine 0.91 Est GFR ( Amer) > 60 Est GFR (Non-Af Amer) > 60 Glucose 80 Calcium 9.6 Magnesium 2.7 H 04/12/19 19:11 Blood Blood Culture - Final NO GROWTH IN 5 DAYS 10/02/18 15:37 Blood Blood Culture - Final NO GROWTH IN 5 DAYS 10/02/18 10/03/18 10/03/18 14:50 03:47 04:43 Creatine Kinase 430 H 732 H CK-MB (CK-2) 2.61 Troponin I 0.047 Impressions: Foot X-Ray 10/02/18 00:00 IMPRESSION: No acute findings. Extensive hardware. No evidence for hardware failure. Facial Bones CT 10/02/18 15:05 IMPRESSION: NO ACUTE FINDINGS. Head CT 10/05/18 00:00 IMPRESSION: No acute intracranial findings. Chest X-Ray 10/07/18 06:00 IMPRESSION: No evidence of acute intrathoracic disease. Interval removal of the endotracheal tube and feeding tube. Assessment and Plan - Diagnosis (1) Acute encephalopathy Is this a current diagnosis for this admission?: Yes Plan: 10/06/2018-the patient was extremely agitated on October 04. He required lorazepam continuous infusion. This is changed from to prevent and Versed. He also was started on low-dose Risperdal by Dr. Berry. He is doing much better today. We are weaning him from the lorazepam and will extubate if no issues arrive. We will then be able to assess any residual encephalopathy. 10/07/2018-the patient was successfully extubated but has been quite agitated. He required lorazepam this morning as he was being aggressive with the nurse. He was saying things such as "get your hands off of me". He chew through his wr ist restraint as well. He will have as needed medications available and psychiatry consult is pending. This could still be related to his polysubstance abuse or possibly related to current medications. 10/08/2018-the patient is certainly clearing. He had meaningful participation during the encounter. He still had nonsensical unrelated comments during the discussion. Current medications could be contributing. There is a balance between his medications and his tendency toward significant agitation. Psychiatry is seeing the patient. We will continue to try and wean sedating medications slowly. (2) Delirium tremens Is this a current diagnosis for this admission?: Yes Plan: 10/06/2018-serum alcohol was 14 on admission. We will continue to monitor the patient. Once off the lorazepam infusion he will have as needed lorazepam available. 10/07/2018-no evidence of tremors. He is oriented to person and place. As noted above altered mental status could be due to previous substance use versus current medications. 10/08/2018-resolved (3) Acute respiratory failure with hypoxia Is this a current diagnosis for this admission?: Yes Plan: 10/06/2018-patient is doing well. He did well on pressure support. We are weaning lorazepam infusion and plan to extubate today. 10/07/2018-the patient was successfully extubated yesterday. He is doing well. Oxygen saturations remain greater than 90% on room air. 10/08/2018-resolved (4) Polysubstance abuse Is this a current diagnosis for this admission?: Yes Plan: 10/06/2018-urine drug screen positive for marijuana, cocaine and alcohol. Psych iatry consult has been requested. Once extubated psych will see the patient and we will determine next steps from there including providing information for rehab. I did speak with psychiatry department. The patient was seen when initially admitted in the emergency department. There is no involuntary commitment in place. 10/07/2018-history of polysubstance abuse. Some of his encephalopathy could be residual effect. We will continue to monitor. Psychiatry will be seeing the patient as well. Consider program for substance abuse. 10/08/2018-currently being seen by psychiatry. We will encourage rehab. (5) Lactic acidosis Is this a current diagnosis for this admission?: Yes Plan: 10/06/2018-resolved. Currently on normal saline IV maintenance 75 mL/h. Once he is able to take p.o. diet then will DC IV fluids. 10/07/2018-as above 10/08/2018-resolved (6) Acute kidney injury Is this a current diagnosis for this admission?: Yes Plan: 10/06/2018-acute kidney injury likely from hypovolemia versus acute toxic effects of polysubstance use. Kidney function is back to normal after IV fluids. Continue to monitor renal function. 10/07/2018-as above 10/08/2018-resolved - Time Time Spent with patient: 15-24 minutes Medications reviewed and adjusted accordingly: Yes
[2018-10-09 06:57] LABS: ANION GAP 10 (5-19); BLOOD UREA NITROGEN 14 mg/dL (7-20); CALCIUM 9.5 mg/dL (8.4-10.2); CARBON DIOXIDE 23 mmol/L (22-30); CHLORIDE 107 mmol/L (98-107); GLUCOSE 79 mg/dL (75-110); POTASSIUM 3.5 mmol/L (3.6-5.0); SODIUM 139.5 mmol/L (137-145)
[2018-10-09] MEDS: ENOXAPARIN SODIUM INJ 40 MG/0.4 ML DISP.SYRIN SUBCUT SCH (08:27)
[2018-10-09] MEDS: RISPERIDONE 1 MG TAB.RAPDIS PO SCH ×2 (09:28→21:10)
[2018-10-09] MEDS: THIAMINE HCL 100 MG TABLET PO SCH (09:28)
[2018-10-09] MEDS: FOLIC ACID 1 MG TABLET PO SCH (09:28)
[2018-10-09] MEDS: LORAZEPAM INJ 2 MG/1 ML VIAL IV PRN ×2 (09:31→21:09)
[2018-10-09] MEDS ORDERED: POTASSIUM CHLORIDE 10 MEQ CAPSULE.ER PO SCH (10:00)
--- NOTE | 2018-10-09 12:52 | PDOC PROGRESS REPORT ---
Subjective Progress Note for:: 10/09/18 Subjective:: DAVID SÁNCHEZ is a 33 year old male with no significant PMH aside from a known polysubstance abuse and alcohol abuse who was brought in due to drug overdose. Patient was reportedly fine this morning with no acute issues or complaints per mother. He reportedly went to the bathroom and locked himself to smoke a weed laced with possible cocaine or methamphetamine. He was also drinking beer this morning. Patient was then noted by family to be confused and combative. They called EMS and patient had to be restrained by 3 police officers as he was extremely agitated. He was given ketamine en route. He was subsequently intubated upon arrival in the ER as he was reported to have very shallow and agonal breathing. Mother says he drinks at least 8 bottles of beer/day and his last drink was this morning. 10/09/2018. No acute events overnight. Reason For Visit: ACUTE TOXIC ENCEPHALOPATHY,ACUTE RESPIRATORY Physical Exam Vital Signs: Temp Pulse Resp BP Pulse Ox 98.6 F 94 18 101/63 99 10/09/18 12:14 10/09/18 12:14 10/09/18 12:14 10/09/18 12:14 10/09/18 12:14 Intake & Output 10/08/18 10/09/18 10/10/18 06:59 06:59 06:59 Intake Total 1023 335 Output Total 1245 75 Balance -222 260 Weight 74.3 kg 74.7 kg Results Laboratory Results: 10/09/18 05:18 10/09/18 05:18 10/09/18 10/09/18 05:18 05:18 WBC 13.4 H RBC 4.97 Hgb 14.7 Hct 44.0 MCV 89 MCH 29.5 MCHC 33.4 RDW 13.2 Plt Count 205 Sodium 139.5 Potassium 3.5 L Chloride 107 Carbon Dioxide 23 Anion Gap 10 BUN 14 Creatinine 1.02 Est GFR ( Amer) > 60 Est GFR (Non-Af Amer) > 60 Glucose 79 Calcium 9.5 10/02/18 10/03/18 10/03/18 14:50 03:47 04:43 Creatine Kinase 430 H 732 H CK-MB (CK-2) 2.61 Troponin I 0.047 Impressions: Foot X-Ray 10/02/18 00:00 IMPRESSION: No acute findings. Extensive hardware. No evidence for hardware failure. Facial Bones CT 10/02/18 15:05 IMPRESSION: NO ACUTE FINDINGS. Head CT 10/05/18 00:00 IMPRESSION: No acute intracranial findings. Chest X-Ray 10/07/18 06:00 IMPRESSION: No evidence of acute intrathoracic disease. Interval removal of the endotracheal tube and feeding tube. Assessment and Plan - Diagnosis (1) Acute encephalopathy Is this a current diagnosis for this admission?: Yes Plan: Much improved since admission. Continue supportive measures, continue weaning off of Haldol and as needed benzos. Psychiatry following (2) Acute kidney injury Is this a current diagnosis for this admission?: Yes Plan: Resolved. Likely related to polysubstance abuse. Kidney function within normal limits. Continue monitoring vitals and volume status. (3) Acute respiratory failure with hypoxia Is this a current diagnosis for this admission?: Yes Plan: Resolved. Saturating 90% on room air. Extubated on 10/06/2018. (4) Delirium tremens Is this a current diagnosis for this admission?: Yes Plan: Resolved. And oriented x3. Denies any anxiety, seizures, formication or any auditory or visual hallucinations. (5) Lactic acidosis Is this a current diagnosis for this admission?: Yes Plan: Resolved. A-G within normal limits. (6) Polysubstance abuse Is this a current diagnosis for this admission?: Yes Plan: UDS was positive for marijuana cocaine and alcohol. Psychiatry following. No involuntary commitment in place.
--- NOTE | 2018-10-09 16:12 | PSYCHOLOGICAL NOTE ---
Psych Note - Psych Note Date seen by psych provider: 10/08/18 Time seen by psych provider: 16:00 Psych Note: Reason for Consult: Overdose Checking conducted with patient Patient is having much easier time talking with clinician. Patient confirms that he was smoking marijuana and using cocaine. He continued to disclose that he uses Suboxone to help sleep. Patient states that he thinks his mother is going to push him into having substance abuse treatment or kick him out of the home. He states that he would prefer to have therapy. He does not want to go to detox or a rehab facility. Patient requests clinician not speak to his mother in regards to his specific plan of care about his substance abuse since he is concerned she is going to make him go for treatment. Patient agrees to see clinician tomorrow to receive treatment packet information. Clinician spoke with patient's mother and provided general psychoeducation on different therapeutic options. Patient's mother is requesting the patient to be IVC for his substance abuse. Clinician explained that currently the patient is not meeting that criteria and provided psychoeducation on IVC statute. Patient's mother agrees and confirms patient does not meet IVC criteria. She reports she is just very frustrated that the patient almost because he is using drugs. She reports she is very scared that he will just continue using after discharge. Medication recommendations per [facility]'s contracted psychiatrist Dr. Aicha GALARZA are as follows Haldol 5 mg every 6 hours as needed Cogentin 1 mg daily Substance abuse Impression\\plan: Patient has reported substance abuse per patient and family. Patient denied intentional overdose. Patient confirms smoking marijuana, using cocaine, and Suboxone "to help sleep." When discussing substance abuse treatment options, the patient states he was not interested in residential treatment. Patient states he would prefer to have one-on-one therapeutic services; patient will be provided resource information for substance abuse treatment options tomorrow as patient has consented to see clinician again. Patient requests that his mother does not receive any of his plan of care information in regards to his substance abuse. Clinician spoke with the patient's mother and provided psychoeducation on general therapeutic interventions for substance abuse to include outpatient, intensive outpatient, detox, rehab. Patient's mother was requesting forced substance abuse treatment through involuntary commitment because of his overdose. Clinician provided psychoeducation on IVC statute; she confirms she understands. Dr. Solorio was consulted to care management of this patient; attending physicians in agreement with recommendations and disposition.
--- NOTE | 2018-10-09 16:14 | PSYCHOLOGICAL NOTE ---
Psych Note - Psych Note Date seen by psych provider: 10/09/18 Time seen by psych provider: 15:15 Psych Note: Reason for Consult: Overdose Checking conducted with patient Patient is provided resource information for both outpatient, intensive outpatient, rehab, and detox for substance abuse. Patient is highly encouraged to consider residential treatment to help maintain sobriety and build positive coping skills in a controlled environment. Patient denies any other concerns at this time. No medication recommendations at this time Substance abuse Impression\plan: Patient is cleared from acute psychiatric services. Patient has been provided resource information for substance abuse treatment options. Please reconsult if new concerns arise. Dr. Solorio was consulted to care management of this patient; attending physicians in agreement with recommendations and disposition.
[2018-10-09] MEDS: HALOPERIDOL 5 MG TABLET PO PRN (20:05)
[2018-10-09] MEDS: BENZTROPINE MESYLATE 1 MG TABLET PO SCH (21:10)
[2018-10-10 06:09] LABS: ALANINE AMINOTRANSFERASE 63 U/L (21-72); ALBUMIN 3.5 g/dL (3.5-5.0); ALKALINE PHOSPHATASE 69 U/L (38-126); ANION GAP 11 (5-19); ASPARTATE AMINO TRANSFERASE 36 U/L (17-59); BILIRUBIN,DIRECT 0.3 mg/dL (0.0-0.4); BILIRUBIN,TOTAL 0.5 mg/dL (0.2-1.3); BLOOD UREA NITROGEN 14 mg/dL (7-20); CALCIUM 9.3 mg/dL (8.4-10.2); CARBON DIOXIDE 22 mmol/L (22-30); CHLORIDE 106 mmol/L (98-107); GLUCOSE 76 mg/dL (75-110); POTASSIUM 3.7 mmol/L (3.6-5.0); SODIUM 138.9 mmol/L (137-145); TOTAL PROTEIN 6.6 g/dL (6.3-8.2)
[2018-10-10] MEDS: NICOTINE 21 MG/24 HR PATCH.TD24 TD SCH (10:52)
[2018-10-10] MEDS: POTASSIUM CHLORIDE 10 MEQ CAPSULE.ER PO SCH (10:52)
[2018-10-10] MEDS: ENOXAPARIN SODIUM INJ 40 MG/0.4 ML DISP.SYRIN SUBCUT SCH (10:53)
[2018-10-10] MEDS: THIAMINE HCL 100 MG TABLET PO SCH (10:53)
[2018-10-10] MEDS: FOLIC ACID 1 MG TABLET PO SCH (10:53)
[2018-10-10] MEDS: LORAZEPAM INJ 2 MG/1 ML VIAL IV PRN (11:01)
--- NOTE | 2018-10-10 12:02 | PDOC PROGRESS REPORT ---
Subjective Progress Note for:: 10/10/18 Subjective:: DAVID SÁNCHEZ is a 33 year old male with no significant PMH aside from a known polysubstance abuse and alcohol abuse who was brought in due to drug overdose. Patient was reportedly fine this morning with no acute issues or complaints per mother. He reportedly went to the bathroom and locked himself to smoke a weed laced with possible cocaine or methamphetamine. He was also drinking beer this morning. Patient was then noted by family to be confused and combative. They called EMS and patient had to be restrained by 3 police officers as he was extremely agitated. He was given ketamine en route. He was subsequently intubated upon arrival in the ER as he was reported to have very shallow and agonal breathing. Mother says he drinks at least 8 bottles of beer/day and his last drink was this morning. 10/10/2018. No acute events overnight. Alert, oriented x2, cooperative with physical examination, holding a conversation however nonsensical. Psychiatry has signed off on him I had a conversation with his mom over the phone and in person she is not ready to take him home because she believes he is safe, as per psych note they have been provided with information about rehab, mother states the information is with the girlfriend and she has not had a time to look over it. She stated that she will go through the information and try to arrange rehab for her son, meanwhile she believes her son to the stay here she does not think she is safe to go home and he may relapse back to drug abuse. Reason For Visit: ACUTE TOXIC ENCEPHALOPATHY,ACUTE RESPIRATORY Physical Exam Vital Signs: Temp Pulse Resp BP Pulse Ox 97.8 F 79 16 108/70 98 10/10/18 08:24 10/10/18 08:24 10/10/18 08:24 10/10/18 08:24 10/10/18 08:24 Intake & Output 10/09/18 10/10/18 10/11/18 06:59 06:59 06:59 Intake Total 335 1422 Output Total 75 Balance 260 1422 Weight 74.7 kg 74.8 kg General appearance: PRESENT: no acute distress, well-developed, well-nourished Head exam: PRESENT: atraumatic, normocephalic Respiratory exam: PRESENT: clear to auscultation stuart. ABSENT: rales, rhonchi, wheezes Cardiovascular exam: PRESENT: RRR. ABSENT: diastolic murmur, rubs, systolic murmur GI/Abdominal exam: PRESENT: normal bowel sounds, soft. ABSENT: distended, guarding, mass, organolmegaly, rebound, tenderness Extremities exam: PRESENT: full ROM. ABSENT: calf tenderness, clubbing, pedal edema Neurological exam: PRESENT: alert, awake, oriented to person, CN II-XII grossly intact, motor sensory deficit Psychiatric exam: PRESENT: unusual affect Focused psych exam: PRESENT: flight of ideas, restlessness Results Laboratory Results: 10/09/18 05:18 10/10/18 04:30 10/10/18 04:30 Sodium 138.9 Potassium 3.7 Chloride 106 Carbon Dioxide 22 Anion Gap 11 BUN 14 Creatinine 0.93 Est GFR ( Amer) > 60 Est GFR (Non-Af Amer) > 60 Glucose 76 Calcium 9.3 Magnesium 2.2 Total Bilirubin 0.5 AST 36 ALT 63 Alkaline Phosphatase 69 Total Protein 6.6 Albumin 3.5 10/02/18 10/03/18 10/03/18 14:50 03:47 04:43 Creatine Kinase 430 H 732 H CK-MB (CK-2) 2.61 Troponin I 0.047 Impressions: Foot X-Ray 10/02/18 00:00 IMPRESSION: No acute findings. Extensive hardware. No evidence for hardware failure. Facial Bones CT 10/02/18 15:05 IMPRESSION: NO ACUTE FINDINGS. Head CT 10/05/18 00:00 IMPRESSION: No acute intracranial findings. Chest X-Ray 10/07/18 06:00 IMPRESSION: No evidence of acute intrathoracic disease. Interval removal of the endotracheal tube and feeding tube. Assessment and Plan - Diagnosis (1) Acute encephalopathy Is this a current diagnosis for this admission?: Yes Plan: Much improved since admission. Still cannot hold a meaningful conversation. Only oriented to person however alert and communicative. Continue Haldol and benzos as needed and Cogentin scheduled as per psych recommendation. Psychiatry has signed off. He wants patient to be sent to rehab. They do not think he is safe to go home. Transfer to medical floor as patient does not need to be in IMCU. (2) Acute kidney injury Is this a current diagnosis for this admission?: Yes Plan: Resolved. Likely related to polysubstance abuse. Kidney function within normal limits. Continue monitoring vitals and volume status. (3) Acute respiratory failure with hypoxia Is this a current diagnosis for this admission?: Yes Plan: Resolved. Saturating 90% on room air. Extubated on 10/06/2018. (4) Delirium tremens Is this a current diagnosis for this admission?: Yes Plan: Resolved. And oriented x2. Denies any anxiety, seizures, formication or any auditory or visual hallucinations. (5) Lactic acidosis Is this a current diagnosis for this admission?: Yes Plan: Resolved. A-G within normal limits. (6) Polysubstance abuse Is this a current diagnosis for this admission?: Yes Plan: UDS was positive for marijuana cocaine and alcohol. As per problem #1. (7) Physical deconditioning Is this a current diagnosis for this admission?: Yes Plan: Likely due to recent critical illness and intubation. Physical therapy consulted. (8) Tobacco abuse Is this a current diagnosis for this admission?: Yes Plan: Advised on Quitting. Nicoderm placement.
[2018-10-10] MEDS: LORAZEPAM 1 MG TABLET PO PRN (19:05)
[2018-10-10] MEDS: BENZTROPINE MESYLATE 1 MG TABLET PO SCH (21:10)
[2018-10-11] MEDS: LORAZEPAM 1 MG TABLET PO PRN ×2 (03:52→15:33)
[2018-10-11] MEDS: HALOPERIDOL 5 MG TABLET PO PRN (05:47)
[2018-10-11] MEDS: THIAMINE HCL 100 MG TABLET PO SCH (11:41)
[2018-10-11] MEDS: ENOXAPARIN SODIUM INJ 40 MG/0.4 ML DISP.SYRIN SUBCUT SCH (11:41)
[2018-10-11] MEDS: FOLIC ACID 1 MG TABLET PO SCH (11:41)
[2018-10-11] MEDS: POTASSIUM CHLORIDE 10 MEQ CAPSULE.ER PO SCH (11:41)
[2018-10-11] MEDS: NICOTINE 21 MG/24 HR PATCH.TD24 TD SCH (11:41)
--- NOTE | 2018-10-11 15:41 | PDOC PROGRESS REPORT ---
Subjective Progress Note for:: 10/11/18 Subjective:: DAVID SÁNCHEZ is a 33 year old male with no significant PMH aside from a known polysubstance abuse and alcohol abuse who was brought in due to drug overdose. Patient was reportedly fine this morning with no acute issues or complaints per mother. He reportedly went to the bathroom and locked himself to smoke a weed laced with possible cocaine or methamphetamine. He was also drinking beer this morning. Patient was then noted by family to be confused and combative. They called EMS and patient had to be restrained by 3 police officers as he was extremely agitated. He was given ketamine en route. He was subsequently intubated upon arrival in the ER as he was reported to have very shallow and agonal breathing. Mother says he drinks at least 8 bottles of beer/day and his last drink was this morning. 10/10/2018. No acute events overnight. Alert, oriented x2, cooperative with physical examination, holding a conversation however nonsensical. Psychiatry has signed off on him I had a conversation with his mom over the phone and in person she is not ready to take him home because she believes he is safe, as per psych note they have been provided with information about rehab, mother states the information is with the girlfriend and she has not had a time to look over it. She stated that she will go through the information and try to arrange rehab for her son, meanwhile she believes her son to the stay here she does not think she is safe to go home and he may relapse back to drug abuse. Reason For Visit: ACUTE TOXIC ENCEPHALOPATHY,ACUTE RESPIRATORY Physical Exam Vital Signs: Temp Pulse Resp BP Pulse Ox 98.3 F 67 18 112/75 100 10/11/18 11:41 10/11/18 11:41 10/11/18 11:41 10/11/18 11:41 10/11/18 11:41 Intake & Output 10/10/18 10/11/18 10/12/18 06:59 06:59 06:59 Intake Total 1422 2557 Balance 1422 2557 Weight 74.8 kg 74.4 kg General appearance: PRESENT: no acute distress, well-developed, well-nourished Head exam: PRESENT: atraumatic, normocephalic Eye exam: PRESENT: conjunctiva pink, EOMI, PERRLA. ABSENT: scleral icterus Ear exam: PRESENT: normal external ear exam Mouth exam: PRESENT: moist, tongue midline Neck exam: ABSENT: carotid bruit, JVD, lymphadenopathy, thyromegaly Respiratory exam: PRESENT: clear to auscultation stuart. ABSENT: rales, rhonchi, wheezes Cardiovascular exam: PRESENT: RRR. ABSENT: diastolic murmur, rubs, systolic murmur Pulses: PRESENT: normal dorsalis pedis pul Vascular exam: PRESENT: normal capillary refill GI/Abdominal exam: PRESENT: normal bowel sounds, soft. ABSENT: distended, guarding, mass, organolmegaly, rebound, tenderness Rectal exam: PRESENT: deferred Extremities exam: PRESENT: full ROM. ABSENT: calf tenderness, clubbing, pedal edema Neurological exam: PRESENT: alert, awake, oriented to person, oriented to place, oriented to time, oriented to situation, CN II-XII grossly intact. ABSENT: motor sensory deficit Psychiatric exam: PRESENT: appropriate affect, normal mood. ABSENT: homicidal ideation, suicidal ideation Skin exam: PRESENT: dry, intact, warm. ABSENT: cyanosis, rash Results Laboratory Results: 10/09/18 05:18 10/10/18 04:30 10/02/18 10/03/18 10/03/18 14:50 03:47 04:43 Creatine Kinase 430 H 732 H CK-MB (CK-2) 2.61 Troponin I 0.047 Impressions: Foot X-Ray 10/02/18 00:00 IMPRESSION: No acute findings. Extensive hardware. No evidence for hardware failure. Facial Bones CT 10/02/18 15:05 IMPRESSION: NO ACUTE FINDINGS. Head CT 10/05/18 00:00 IMPRESSION: No acute intracranial findings. Chest X-Ray 10/07/18 06:00 IMPRESSION: No evidence of acute intrathoracic disease. Interval removal of the endotracheal tube and feeding tube. Assessment and Plan - Diagnosis (1) Physical deconditioning Is this a current diagnosis for this admission?: Yes Plan: Likely due to recent critical illness and intubation. Physical therapy. (2) Polysubstance abuse Is this a current diagnosis for this admission?: Yes Plan: UDS was positive for marijuana cocaine and alcohol. As per problem #1. (3) Acute encephalopathy Is this a current diagnosis for this admission?: Yes Plan: Much improved since admission. Still cannot hold a meaningful conversation. Only oriented to person however alert and communicative. Continue Haldol and benzos as needed and Cogentin scheduled as per psych recommendation. Psychiatry has signed off. He wants patient to be sent to rehab. They do not think he is safe to go home. Transfer to medical floor as patient does not need to be in IMCU. (4) Acute respiratory failure with hypoxia Is this a current diagnosis for this admission?: Yes Plan: Resolved. Saturating 90% on room air. Extubated on 10/06/2018. (5) Delirium tremens Is this a current diagnosis for this admission?: Yes Plan: Resolved. And oriented x2. Denies any anxiety, seizures, formication or any auditory or visual hallucinations. (6) Tobacco abuse Is this a current diagnosis for this admission?: Yes Plan: Advised on Quitting. Nicoderm placement.
[2018-10-11] MEDS: BENZTROPINE MESYLATE 1 MG TABLET PO SCH (21:07)
[2018-10-11] MEDS: ZOLPIDEM TARTRATE 5 MG TABLET PO SCH (21:07)
[2018-10-12 06:13] LABS: ANION GAP 10 (5-19); BLOOD UREA NITROGEN 14 mg/dL (7-20); CARBON DIOXIDE 26 mmol/L (22-30); CHLORIDE 101 mmol/L (98-107); GLUCOSE 108 mg/dL (75-110); POTASSIUM 5.1 mmol/L (3.6-5.0); SODIUM 137.2 mmol/L (137-145)
[2018-10-12] MEDS: ENOXAPARIN SODIUM INJ 40 MG/0.4 ML DISP.SYRIN SUBCUT SCH (10:27)
[2018-10-12] MEDS: THIAMINE HCL 100 MG TABLET PO SCH (10:36)
[2018-10-12] MEDS: FOLIC ACID 1 MG TABLET PO SCH (10:36)
[2018-10-12] MEDS: NICOTINE 21 MG/24 HR PATCH.TD24 TD SCH (10:37)
[2018-10-12] MEDS: POTASSIUM CHLORIDE 10 MEQ CAPSULE.ER PO SCH (11:48)
--- NOTE | 2018-10-12 14:34 | PDOC PROGRESS REPORT ---
Subjective Progress Note for:: 10/12/18 Subjective:: DAVID SÁNCHEZ is a 33 year old male with no significant PMH aside from a known polysubstance abuse and alcohol abuse who was brought in due to drug overdose. Patient was reportedly fine this morning with no acute issues or complaints per mother. He reportedly went to the bathroom and locked himself to smoke a weed laced with possible cocaine or methamphetamine. He was also drinking beer this morning. Patient was then noted by family to be confused and combative. They called EMS and patient had to be restrained by 3 police officers as he was extremely agitated. He was given ketamine en route. He was subsequently intubated upon arrival in the ER as he was reported to have very shallow and agonal breathing. Mother says he drinks at least 8 bottles of beer/day and his last drink was this morning. 10/10/2018. No acute events overnight. Alert, oriented x2, cooperative with physical examination, holding a conversation however nonsensical. Psychiatry has signed off on him I had a conversation with his mom over the phone and in person she is not ready to take him home because she believes he is safe, as per psych note they have been provided with information about rehab, mother states the information is with the girlfriend and she has not had a time to look over it. She stated that she will go through the information and try to arrange rehab for her son, meanwhile she believes her son to the stay here she does not think she is safe to go home and he may relapse back to drug abuse. 10/11/2018. No acute events overnight. Patient is ambulating with assistance of front-wheeled walker. He said that he is getting stronger. Patient is pending placement to rehab. Alert oriented x4. Can hold a conversation. Seems to have a good insight into his drug abuse problem. Wants to go to rehab to get help. 10/12/2018. No acute events overnight. Patient is ambulating with assist and front-wheeled walker. Alert oriented x4. Pending rehab transfer. Psychiatry has signed off. Reason For Visit: ACUTE TOXIC ENCEPHALOPATHY,ACUTE RESPIRATORY Physical Exam Vital Signs: Temp Pulse Resp BP Pulse Ox 97.4 F 63 16 112/65 100 10/12/18 11:37 10/12/18 11:37 10/12/18 11:37 10/12/18 11:37 10/12/18 11:37 Intake & Output 10/11/18 10/12/18 10/13/18 06:59 06:59 06:59 Intake Total 7862 2626 355 Balance 2557 2625 355 Weight 74.4 kg 70.8 kg General appearance: PRESENT: no acute distress, well-developed, well-nourished Head exam: PRESENT: atraumatic, normocephalic Eye exam: PRESENT: conjunctiva pink, EOMI, PERRLA. ABSENT: scleral icterus Ear exam: PRESENT: normal external ear exam Mouth exam: PRESENT: moist, tongue midline Neck exam: ABSENT: carotid bruit, JVD, lymphadenopathy, thyromegaly Respiratory exam: PRESENT: clear to auscultation stuart. ABSENT: rales, rhonchi, wheezes Cardiovascular exam: PRESENT: RRR. ABSENT: diastolic murmur, rubs, systolic murmur Pulses: PRESENT: normal dorsalis pedis pul Vascular exam: PRESENT: normal capillary refill GI/Abdominal exam: PRESENT: normal bowel sounds, soft. ABSENT: distended, guarding, mass, organolmegaly, rebound, tenderness Rectal exam: PRESENT: deferred Extremities exam: PRESENT: full ROM. ABSENT: calf tenderness, clubbing, pedal edema Neurological exam: PRESENT: alert, awake, oriented to person, oriented to place, oriented to time, oriented to situation, CN II-XII grossly intact. ABSENT: motor sensory deficit Psychiatric exam: PRESENT: appropriate affect, normal mood. ABSENT: homicidal ideation, suicidal ideation Skin exam: PRESENT: dry, intact, warm. ABSENT: cyanosis, rash Results Laboratory Results: 10/09/18 05:18 10/12/18 05:02 10/12/18 05:02 Sodium 137.2 Potassium 5.1 H Chloride 101 Carbon Dioxide 26 Anion Gap 10 BUN 14 Creatinine 1.04 Est GFR ( Amer) > 60 Est GFR (Non-Af Amer) > 60 Glucose 108 Calcium 10.0 10/02/18 10/03/18 10/03/18 14:50 03:47 04:43 Creatine Kinase 430 H 732 H CK-MB (CK-2) 2.61 Troponin I 0.047 Impressions: Foot X-Ray 10/02/18 00:00 IMPRESSION: No acute findings. Extensive hardware. No evidence for hardware failure. Facial Bones CT 10/02/18 15:05 IMPRESSION: NO ACUTE FINDINGS. Head CT 10/05/18 00:00 IMPRESSION: No acute intracranial findings. Chest X-Ray 10/07/18 06:00 IMPRESSION: No evidence of acute intrathoracic disease. Interval removal of the endotracheal tube and feeding tube. Assessment and Plan - Diagnosis (1) Physical deconditioning Is this a current diagnosis for this admission?: Yes Plan: Improving. Walking with the help of front-wheeled walker. Feeling that he is getting stronger. This was likely likely due to recent critical illness and intubation. Physical therapy. (2) Polysubstance abuse Is this a current diagnosis for this admission?: Yes Plan: Withdrawals. Patient alert oriented x4. UDS was positive for marijuana cocaine and alcohol. (3) Acute encephalopathy Is this a current diagnosis for this admission?: Yes Plan: Resolved. Oriented x4. Continue Haldol and benzos as needed and Cogentin scheduled as per psych recommendation. Psychiatry has signed off. He wants patient to be sent to rehab. They do not think he is safe to go home. Transferred to medical floor as patient does not need to be in IMCU. (4) Acute respiratory failure with hypoxia Is this a current diagnosis for this admission?: Yes Plan: Resolved. Saturating 90% on room air. Extubated on 10/06/2018. (5) Delirium tremens Is this a current diagnosis for this admission?: Yes Plan: Resolved. And oriented x2. Denies any anxiety, seizures, formication or any auditory or visual hallucinations. (6) Tobacco abuse Is this a current diagnosis for this admission?: Yes Plan: Advised on Quitting. Nicoderm placement. (7) Hyperkalemia Is this a current diagnosis for this admission?: No Plan: Mild. DC supplemental potassium. Potassium level tomorrow.
[2018-10-12] MEDS: BENZTROPINE MESYLATE 1 MG TABLET PO SCH (21:30)
[2018-10-12] MEDS: ZOLPIDEM TARTRATE 5 MG TABLET PO SCH (21:30)
[2018-10-13 09:29] VITALS: BP 134/83
[2018-10-13 10:27] LABS: ANION GAP 8 (5-19); BLOOD UREA NITROGEN 16 mg/dL (7-20); CALCIUM 9.8 mg/dL (8.4-10.2); CARBON DIOXIDE 26 mmol/L (22-30); CHLORIDE 105 mmol/L (98-107); GLUCOSE 92 mg/dL (75-110); POTASSIUM 4.9 mmol/L (3.6-5.0); SODIUM 138.8 mmol/L (137-145)
--- NOTE | 2018-10-18 14:34 | PDOC DISCHARGE SUMMARY ---
General - Admit/Disc Date/PCP Admission Date/Primary Care Provider: 10/02/18 17:33 Discharge Date: 10/13/18 - Discharge Diagnosis (1) Acute respiratory failure with hypoxia Is this a current diagnosis for this admission?: Yes (2) Acute encephalopathy Is this a current diagnosis for this admission?: Yes (3) Delirium tremens Is this a current diagnosis for this admission?: Yes (4) Polysubstance abuse Is this a current diagnosis for this admission?: Yes (5) Physical deconditioning Is this a current diagnosis for this admission?: Yes (6) Tobacco abuse Is this a current diagnosis for this admission?: Yes (7) Hyperkalemia Is this a current diagnosis for this admission?: No - Additional Information Resuscitation Status: Full Code Discharge Diet: As Tolerated Discharge Activity: Activity As Tolerated, Balance Activity w/Rest Prescriptions: Benztropine Mesylate [Cogentin 1 mg Tablet] 1 mg PO QHS 30 Days #30 tablet Folic Acid [Folvite 1 mg Tablet] 1 mg PO DAILY 30 Days #30 tablet Haloperidol [Haldol 5 mg Tablet] 5 mg PO Q6HP PRN 30 Days #30 tablet PRN Reason: Thiamine HCl [Thiamine 100 mg Tablet] 100 mg PO DAILY 30 Days #30 tablet Home Medications: Benztropine Mesylate [Cogentin 1 mg Tablet] 1 mg PO QHS 30 Days #30 tablet 10/13/18 Folic Acid [Folvite 1 mg Tablet] 1 mg PO DAILY 30 Days #30 tablet 10/13/18 Haloperidol [Haldol 5 mg Tablet] 5 mg PO Q6HP PRN 30 Days #30 tablet 10/13/18 Thiamine HCl [Thiamine 100 mg Tablet] 100 mg PO DAILY 30 Days #30 tablet 10/13/18 History of Present Illness History of Present Illness: DAVID SÁNCHEZ is a 33 year old male with no significant PMH aside from a known polysubstance abuse and alcohol abuse who was brought in due to drug overdose. Patient was reportedly fine this morning with no acute issues or complaints per mother. He reportedly went to the bathroom and locked himself to smoke a weed laced with possible cocaine or methamphetamine. He was also drinking beer this morning. Patient was then noted by family to be confused and combative. They called EMS and patient had to be restrained by 3 police officers as he was extremely agitated. He was given ketamine en route. He was subsequently intubated upon arrival in the ER as he was reported to have very shallow and agonal breathing. Mother says he drinks at least 8 bottles of beer/day and his last drink was this morning. 10/10/2018. No acute events overnight. Alert, oriented x2, cooperative with physical examination, holding a conversation however nonsensical. Psychiatry has signed off on him I had a conversation with his mom over the phone and in person she is not ready to take him home because she believes he is safe, as per psych note they have been provided with information about rehab, mother states the information is with the girlfriend and she has not had a time to look over it. She stated that she will go through the information and try to arrange rehab for her son, meanwhile she believes her son to the stay here she does not think she is safe to go home and he may relapse back to drug abuse. 10/11/2018. No acute events overnight. Patient is ambulating with assistance of front-wheeled walker. He said that he is getting stronger. Patient is pending placement to rehab. Alert oriented x4. Can hold a conversation. Seems to have a good insight into his drug abuse problem. Wants to go to rehab to get help. 10/12/2018. No acute events overnight. Patient is ambulating with assist and front-wheeled walker. Alert oriented x4. Pending rehab transfer. Psychiatry has signed off. Hospital Course Hospital Course: (1) Acute respiratory failure with hypoxia Initially intubated taken to ICU and subsequently extubated on 10/06/2018 and transferred to IMCU. Saturating 99% on room air. (2) Acute encephalopathy Resolved. Oriented x4. Continud Haldol and benzos as needed and Cogentin scheduled as per psych recommendation. Psychiatry has signed off. Family wants patient to be sent to rehab. She was sent to [place] to a drug rehab arranged by the family. Transferred to medical floor as patient does not need to be in IMCU. (3) Delirium tremens Resolved. And oriented x4. Denies any anxiety, seizures, formication or any auditory or visual hallucinations. (4) Polysubstance abuse Withdrawal symptoms resolved. Patient alert oriented x4. UDS was positive for marijuana cocaine and alcohol. Patient was taken to [place] for rehab arranged by the family. (5) Physical deconditioning This was likely likely due to recent critical illness and intubation. Physical therapy consulted and provided. Improved. Walking with the help of front-wheeled walker. (6) Tobacco abuse Advised on Quitting. Nicoderm placement. (7) Hyperkalemia Resolved. DC supplemental potassium. Physical Exam Vital Signs: Temp Pulse Resp BP Pulse Ox 98.2 F 70 14 134/83 H 99 10/13/18 09:28 10/13/18 09:28 10/13/18 09:28 10/13/18 09:28 10/13/18 09:28 Results Laboratory Results: 10/09/18 05:18 10/13/18 09:41 10/02/18 10/03/18 10/03/18 14:50 03:47 04:43 Creatine Kinase 430 H 732 H CK-MB (CK-2) 2.61 Troponin I 0.047 Impressions: Foot X-Ray 10/02/18 00:00 IMPRESSION: No acute findings. Extensive hardware. No evidence for hardware failure. Facial Bones CT 10/02/18 15:05 IMPRESSION: NO ACUTE FINDINGS. Head CT 10/05/18 00:00 IMPRESSION: No acute intracranial findings. Chest X-Ray 10/07/18 06:00 IMPRESSION: No evidence of acute intrathoracic disease. Interval removal of the endotracheal tube and feeding tube. Qualifiers - * PATIENT BEING DISCHARGED WITH ANY OF THE FOLLOWING DIAGNOSIS: No
== END 2018-10-13 09:50 | disposition home or self-care (01) | DRG 917 ==
LOC: ER 14:50 → EH 17:33 → ICU 18:40 → 3W 10-08 17:17
PROVIDERS: ADMIT Internal Medicine; ATTEND Internal Medicine
PROC: 5A1955Z Respiratory Ventilation, Greater than 96 Consecutive Hours (ICD-10-PCS; principal; 2018-10-02)
PROC: 0BH17EZ Insertion of Endotracheal Airway into Trachea, Via Natural or Artificial Opening (ICD-10-PCS; 2018-10-02)
DX: T40.5X1A Poisoning by cocaine, accidental (unintentional), initial encounter (principal); G92 Toxic encephalopathy; J96.01 Acute respiratory failure with hypoxia; N17.9 Acute kidney failure, unspecified; E87.2 Acidosis; F10.231 Alcohol dependence with withdrawal delirium; T40.7X1A Poisoning by cannabis (derivatives), accidental (unintentional), initial encounter; T51.0X4A Toxic effect of ethanol, undetermined, initial encounter; E87.5 Hyperkalemia; F17.210 Nicotine dependence, cigarettes, uncomplicated; Y92.012 Bathroom of single-family (private) house as the place of occurrence of the external cause; Z78.1 Physical restraint status
CPT/HCPCS: 36415; 70450; 70486; 71045; 80048; 80053; 80202; 80307; 81001; 82271; 82533; 82550; 82553; 82803; 82962; 83605; 83735; 84100; 84443; 84484; 85025; 85027; 87040; 87086; 93005; 93010; 94002; 94003; 96361; 96365; 96375; 99291; J0330; J0360; J0692; J0696; J1100; J1650; J1652; J1940; J1956; J2060; J2250; J2405; J2704; J3010; J3370; J3411; J3475; J3480; J3490; J7030; J7060; S0164

== ENCOUNTER 2018-12-25 07:13 | Emergency (ER) | payer SELFPAY ==
[2018-12-25 07:23] VITALS: BP 156/96
[2018-12-25] MEDS ORDERED: LIDOCAINE 2% VISCOUS SOLN 20 ML UDCUP PO ONE (09:37)
[2018-12-25] MEDS ORDERED: PENICILLIN V POTASSIUM 500 MG TABLET PO ONE (09:37)
--- NOTE | 2018-12-25 09:43 | ER Document Report ---
HPI - HPI Patient complains to provider of: broken tooth Time Seen by Provider: 12/25/18 09:14 Pain Level: 4 Context: 33-year-old male with no past medical history presents to the emergency department chief complaint of a broken #6 tooth. He said he was chewing on some chicken teriyaki last night and excellently bit onto the wooden skewer and broke the tube. He has been in acute pain since then. He has not taken anything for. He said the tooth is just floating there wiggling. He denies any fevers or chills, acute shortness of breath or chest pain, swallowing a foreign body. Patient is able to open his jaw all the way. No other complaints - REPRODUCTIVE Reproductive: DENIES: : Past Medical History - Social History Smoking Status: Current Every Day Smoker Frequency of alcohol use: None Drug Abuse: None Family History: Reviewed & Not Pertinent Patient has suicidal ideation: No Patient has homicidal ideation: No Renal/ Medical History: Denies: Hx Peritoneal Dialysis Musculoskeletal Medical History: Reports Hx Musculoskeletal Deformity - corrective surgery 10 years ago Past Surgical History: Reports: Hx Orthopedic Surgery - R ankle with hardware - Immunizations Hx Diphtheria, Pertussis, Tetanus Vaccination: No Vertical Provider Document - CONSTITUTIONAL Notes: PHYSICAL EXAMINATION: Reviewed vital signs and charting by RN GENERAL: Alert, interacts well. No acute distress. HEAD: Normocephalic, atraumatic. EYES: Pupils equal and round. Extraocular movements intact. ENT: Oral mucosa moist, tongue midline. #6 tooth with decay in the enamel. Tooth is partially broken and nerve root is exposed, no gingival inflammation or infection, no purulent discharge. NECK: Full range of motion. Trachea midline. LUNGS: Clear to auscultation bilaterally, no wheezes, rales, or rhonchi. No respiratory distress. HEART: Regular rate and rhythm. No murmur ABDOMEN: soft, non-tender. No distention. Bowel sounds present EXTREMITIES: Moves all 4 extremities spontaneously. No edema, No cyanosis. PSYCH: Normal affect, normal mood. SKIN: Warm, dry, normal turgor. No rashes or lesions noted. - INFECTION CONTROL TRAVEL OUTSIDE OF THE [place] IN LAST 30 DAYS: No Course - Re-evaluation Re-evalutation: 12/25/18 09:42 You have been seen for dental pain. It is very important that you follow-up with a dentist for definitive care. Please return if you develop fever greater than 101, swelling in your face, vomiting, difficulty breathing or swallowing, or any other symptoms that are concerning to you. For pain you should take ibuprofen 600 mg every 6 hours as needed. - Vital Signs Vital signs: Temp Pulse Resp BP Pulse Ox 98.1 F 105 H 20 156/96 H 97 12/25/18 07:21 12/25/18 07:21 12/25/18 07:21 12/25/18 07:21 12/25/18 07:21 Discharge - Discharge Clinical Impression: Tooth infection Condition: Good Disposition: HOME, SELF-CARE Instructions: [facility], Penicillin V K ([facility]), Toothache ([facility]) Additional Instructions: You have been seen for dental pain. It is very important that you follow-up with a dentist for definitive care. You have been given a prescription for penicillin which you should take 4 times a day for 7 days. This is because that tooth has a lot of decay and there is infection present. Please return if you develop fever greater than 101, swelling in your face, vomiting, difficulty breathing or swallowing, or any other symptoms that are concerning to you. For pain you should take ibuprofen 600 mg every 6 hours as needed. Prescriptions: Penicillin V Potassium [Penicillin Vk 500 mg Tablet] 500 mg PO QID #28 tablet
== END 2018-12-25 10:12 | disposition home or self-care (01) ==
LOC: ER 07:13
DX: K04.7 Periapical abscess without sinus (principal); K02.9 Dental caries, unspecified; S02.5XXA Fracture of tooth (traumatic), initial encounter for closed fracture; X58.XXXA Exposure to other specified factors, initial encounter; F17.200 Nicotine dependence, unspecified, uncomplicated
CPT/HCPCS: 99282; J3490

== ENCOUNTER 2019-04-15 14:58 | Emergency (ER) | payer SELFPAY ==
--- NOTE | 2019-04-15 15:37 | ER Document Report ---
ED Medical Screen (RME) - General Chief Complaint: Shoulder Injury Stated Complaint: POSSIBLE DISLOCATED SHOULDER Time Seen by Provider: 04/15/19 15:34 Mode of Arrival: Ambulatory Information source: Patient Notes: 33-year-old male presents to ED for right shoulder pain. He states the other person slipped while he was holding the furniture injuring his shoulder. He states he did this last night and he was not able to come in last night but he is continued to have pain and cannot move the shoulder. Patient is alert oriented respirations regular and unlabored speaking in full sentences. I have greeted and performed a rapid initial assessment of this patient. A comprehensive ED assessment and evaluation of the patient, analysis of test results and completion of medical decision making process will be conducted by an additional ED providers. TRAVEL OUTSIDE OF THE [place] IN LAST 30 DAYS: No - Related Data Allergies/Adverse Reactions: No Known Allergies Allergy (Verified 04/15/19 15:35) Past Medical History Renal/ Medical History: Denies: Hx Peritoneal Dialysis Musculoskeltal Medical History: Reports Hx Musculoskeletal Deformity - corrective surgery 10 years ago Past Surgical History: Reports: Hx Orthopedic Surgery - R ankle with hardware - Immunizations Hx Diphtheria, Pertussis, Tetanus Vaccination: No Physical Exam - Vital signs Vitals: Temp Pulse Resp BP Pulse Ox 98.5 F 56 L 18 133/82 H 99 04/15/19 15:24 04/15/19 15:24 04/15/19 15:24 04/15/19 15:24 04/15/19 15:24 Course - Vital Signs Vital signs: Temp Pulse Resp BP Pulse Ox 98.5 F 56 L 18 133/82 H 99 04/15/19 15:24 04/15/19 15:24 04/15/19 15:24 04/15/19 15:24 04/15/19 15:24
[2019-04-15] MEDS ORDERED: IBUPROFEN 800 MG TABLET PO ONE (15:38)
--- NOTE | 2019-04-15 17:22 | RADIOLOGY REPORT (SQ) ---
EXAM DESCRIPTION: SHOULDER RIGHT 2 OR MORE VIEWS COMPLETED DATE/TIME: 04/15/2019 4:22 pm REASON FOR STUDY: pain and injury COMPARISON: AP and scapular Y-views of the right shoulder from 12/30/2016. NUMBER OF VIEWS: Three views. TECHNIQUE: Internal rotation, external rotation, and Y view images acquired of the right shoulder. LIMITATIONS: None. FINDINGS: MINERALIZATION: Normal. BONES: No acute fracture. JOINTS: No dislocation. VISUALIZED LUNGS AND RIBS: No pneumothorax or rib fracture. SOFT TISSUES: No radiopaque foreign body. OTHER: No other finding. IMPRESSION: No acute osseous abnormality of the right shoulder. TECHNICAL DOCUMENTATION: JOB ID: [id number] [employer]- All Rights Reserved Reading location - IP/workstation name: [email or web address]
--- NOTE | 2019-04-15 20:07 | ER Document Report ---
HPI - HPI Time Seen by Provider: 04/15/19 15:34 Pain Level: 4 Notes: Patient is an otherwise healthy 33-year-old male presenting to the emergency department chief complaint of right shoulder pain. Patient reports yesterday while he was at work he was lifting a heavy item walking up some stairs when the item came back towards him and he believes the shoulder was dislocated. He has not taken any medication or treatment for this. He has not seen any medical provider prior to now. - CONSTITUTIONAL Constitutional: DENIES: Fever, Chills - REPRODUCTIVE Reproductive: DENIES: : - MUSCULOSKELETAL Musculoskeletal: REPORTS: Extremity pain Past Medical History - General Information source: Patient - Social History Smoking Status: Never Smoker Chew tobacco use (# tins/day): No Frequency of alcohol use: None Drug Abuse: None Family History: Reviewed & Not Pertinent Patient has suicidal ideation: No Patient has homicidal ideation: No Renal/ Medical History: Denies: Hx Peritoneal Dialysis Musculoskeletal Medical History: Reports Hx Musculoskeletal Deformity - corrective surgery 10 years ago Past Surgical History: Reports: Hx Orthopedic Surgery - R ankle with hardware - Immunizations Hx Diphtheria, Pertussis, Tetanus Vaccination: No Vertical Provider Document - CONSTITUTIONAL Notes: PHYSICAL EXAMINATION: GENERAL: Well-appearing, well-nourished and in no acute distress. HEAD: Atraumatic, normocephalic. EYES: Pupils equal round extraocular movements intact, conjunctiva are normal. ENT: Nares patent NECK: Normal range of motion LUNGS: No respiratory distress Musculoskeletal: Full range of motion to right shoulder, no crepitus or deformity on palpation. Tenderness to lateral aspect of the shoulder with palpation. Strong radial pulse distal to area of injury, normal motor and sensation distal to injury. NEUROLOGICAL: Normal speech, normal gait. PSYCH: Normal mood, normal affect. SKIN: Warm, Dry, normal turgor, no rashes or lesions noted. - INFECTION CONTROL TRAVEL OUTSIDE OF THE [place] IN LAST 30 DAYS: No Course - Re-evaluation Re-evalutation: Shoulder X-Ray 04/15/19 15:37 IMPRESSION: No acute osseous abnormality of the right shoulder. Radiology reports show no fracture dislocation. Patient does have full range of motion of the right shoulder however it is painful with palpation to the lateral aspect of the shoulder. Patient will be discharged home with instructions to do shoulder exercises, take ibuprofen and take Frederick for severe pain only. Patient verbalized understanding and agreement this plan. Patient understands the need to follow-up with Ortho if not improving. - Vital Signs Vital signs: Temp Pulse Resp BP Pulse Ox 97.9 F 53 L 20 113/63 100 04/15/19 19:19 04/15/19 19:19 04/15/19 19:19 04/15/19 19:19 04/15/19 19:19 Discharge - Discharge Clinical Impression: Shoulder injury Qualifiers: Encounter type: initial encounter Laterality: right Qualified Code(s): S49.91XA - Unspecified injury of right shoulder and upper arm, initial encounter Condition: Stable Disposition: HOME, SELF-CARE Additional Instructions: Shoulder Injury You have injured your shoulder. This usually results from stretching or tearing of the tendons during trauma. Time and protection are required in order to heal properly. Many injuries are quite disabling, and should be taken seriously. Initial treatment includes cold packs and a sling to rest the shoulder. The physician has assessed the seriousness of your injury, and has outlined a treatment plan. Understand that this treatment may change, depending on how you progress. If a re-examination was recommended, it is important that you follow up as instructed. Some shoulder injuries (such as partial tear of the rotator cuff) are only suspected after you've failed to improve. Call us if there's severe pain, numbness, or loss of function. Ice Packs Apply ice packs frequently against the painful area. Many different schedules are recommended, such as "20 minutes on, 20 minutes off" or "one hour ice, two hours rest." If you need to work, you may need to go longer between ice treatments. You should plan to have the area ice packed AT LEAST one fourth of the time. The ice should be applied over the wrap, tape, or splint, or over a layer of cloth -- not directly against the skin. Some ice bags have a built-in cloth and can be put directly on the skin. The x-ray today was negative. Please take ibuprofen 600 mg every 6 hours. Use the narcotic pain medication for severe pain only. You feel it is most likely you had a dislocation yesterday that reduced itself. No work until Friday. Apply ice to the shoulder as much as possible. Prescriptions: Hydrocodone/Acetaminophen [Frederick 5-325 mg Tablet] 1 tab PO Q4H #12 tablet Forms: Return to Work
[2019-04-15 20:31] VITALS: BP 119/69
== END 2019-04-15 20:34 | disposition home or self-care (01) ==
LOC: ER 14:58
DX: S49.91XA Unspecified injury of right shoulder and upper arm, initial encounter (principal); M25.511 Pain in right shoulder; X50.0XXA Overexertion from strenuous movement or load, initial encounter; Y93.89 Activity, other specified; Y99.0 Civilian activity done for income or pay